=== PATIENT | female | born 1980 | race Hispanic/Latino ===

== ENCOUNTER → 2019-03-19 | Outpatient (CLI) | payer OTHER ==
[~2019-03-19] MED LIST: TYL3 PO; VICODIN PO
== END | disposition home or self-care (01) ==
LOC: OIH 11:00
PROVIDERS: ATTEND Internal Medicine
DX: M06.4 Inflammatory polyarthropathy (principal)
CPT/HCPCS: 72200; 73521

== ENCOUNTER 2019-06-15 08:21 | Inpatient (IN) | payer OTHER ==
[~2019-06-15] VITALS: Ht 160 cm; Wt 80.9 kg
[2019-06-15 09:20] VITALS: BP 112/70
[2019-06-15 09:28] LABS: BASOPHILS % (AUTO) 0.9 % (0.0-5.0); EOSINOPHILS % (AUTO) 6.4 % (0.0-8.0); HEMATOCRIT 36.8 % (36-48); LYMPHOCYTES % (AUTO) 34.3 % (21.0-51.0); MEAN CORPUSCULAR HGB CONC 33.7 g/dL (32.0-36.0); MONOCYTES % (AUTO) 5.4 % (3.0-13.0); NEUTROPHILS % (AUTO) 52.3 % (40.0-77.0); PLATELET COUNT (AUTO) 202 K/uL (130-400); RED BLOOD CELL COUNT(AUTO) 4.28 MIL/uL (4.00-5.50); RED CELL DISTRIBUTION WIDTH 13.3 % (11.0-15.5); WHITE BLOOD COUNT (AUTO) 5.8 K/uL (4.8-10.8)
[2019-06-15 09:45] LABS: INR 0.95 (0.85-1.15); PARTIAL THROMBOPLASTIN TIME 27.3 SEC (26.3-35.5)
--- NOTE | 2019-06-15 09:58 | NUR ---
INITIAL Patient lives with spouse, Ahsan Jeffery, [phone]. No home services. DME: wheelchair, cane. Patient needs help with ADL's independently but drives. Family helps patient as needed. 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 PCP is Dr. Tyrel Castanon. Pharmacy is [facility] is located in [place]. DCP is home. Addendum: 06/15/19 at 1002 by LEELEE CORDERO SS Amended: Links added.
[2019-06-15 10:07] LABS: ALBUMIN 3.3 g/dL (3.5-5.0); BILIRUBIN,TOTAL 0.2 mg/dL (0.2-1.0); CREATININE 1.1 mg/dL (0.5-1.5); TOTAL PROTEIN, SERUM 6.8 g/dL (6.0-8.3)
[2019-06-15] MEDS ORDERED: TYL3B PO (10:07)
[2019-06-15] MEDS ORDERED: CYCL10TA7 PO (10:07)
[2019-06-15] MEDS ORDERED: GABA800T9 PO (10:07)
[2019-06-15] MEDS ORDERED: AMIT50TA3 PO (10:07)
[2019-06-15] MEDS ORDERED: ACETAMINOPHEN-CODEINE 300/30MG TAB PO PRN (10:15)
[2019-06-15] MEDS ORDERED: ACETAMINOPHEN 325 MG TAB PO PRN (10:30)
[2019-06-15 11:00] VITALS: BP 105/67
[2019-06-15] MEDS: CYCLOBENZAPRINE HCL 10 MG TABLET PO SCH ×2 (15:03→21:08)
[2019-06-15] MEDS: GABAPENTIN 100 MG CAPSULE PO SCH ×2 (15:03→21:08)
[2019-06-15] MEDS: GABAPENTIN 300 MG CAPSULE PO SCH ×2 (15:04→21:09)
[2019-06-15 16:00] VITALS: BP 106/70
[2019-06-15 20:25] VITALS: BP 115/70
[2019-06-15] MEDS: FAMOTIDINE 20MG TAB 20 MG TAB PO SCH (21:08)
[2019-06-15] MEDS: AMITRIPTYLINE HCL 25 MG TABLET PO SCH (21:08)
[2019-06-16] VITALS: BP 95/66
[2019-06-16 04:27] VITALS: BP 105/62
[2019-06-16 05:52] LABS: EOSINOPHILS % (AUTO) 6.1 % (0.0-8.0); HEMATOCRIT 38.5 % (36-48); LYMPHOCYTES % (AUTO) 39.8 % (21.0-51.0); MEAN CORPUSCULAR VOLUME 87.9 fL (79-99); MONOCYTES % (AUTO) 5.8 % (3.0-13.0); NEUTROPHILS % (AUTO) 46.5 % (40.0-77.0); PLATELET COUNT (AUTO) 215 K/uL (130-400); RED BLOOD CELL COUNT(AUTO) 4.38 MIL/uL (4.00-5.50); RED CELL DISTRIBUTION WIDTH 13.6 % (11.0-15.5); WHITE BLOOD COUNT (AUTO) 6.3 K/uL (4.8-10.8)
[2019-06-16 06:08] LABS: ALBUMIN 3.2 g/dL (3.5-5.0); BILIRUBIN,TOTAL 0.2 mg/dL (0.2-1.0); CREATININE 1.3 mg/dL (0.5-1.5); POTASSIUM 4.6 mmol/L (3.5-5.1); TOTAL PROTEIN, SERUM 6.7 g/dL (6.0-8.3)
[2019-06-16 07:00] VITALS: BP 108/71
[2019-06-16] MEDS: CYCLOBENZAPRINE HCL 10 MG TABLET PO SCH ×3 (08:56→20:22)
[2019-06-16] MEDS: FAMOTIDINE 20MG TAB 20 MG TAB PO SCH ×2 (08:56→20:18)
[2019-06-16] MEDS: GABAPENTIN 300 MG CAPSULE PO SCH ×3 (08:57→20:22)
[2019-06-16] MEDS: GABAPENTIN 100 MG CAPSULE PO SCH ×3 (08:58→20:22)
--- NOTE | 2019-06-16 09:30 | NUR ---
DR. HENSLEY IN TO SEE PT. FROM HIS STANDPOINT CAN BE DISCHARGED AND TO FOLLOW UP WITH HIM IN 6 TO 8 WEEKS.
--- NOTE | 2019-06-16 10:30 | NUR ---
KIDNEY US DONE, NOW TO SEE PT.
[2019-06-16 12:00] VITALS: BP 116/76
--- NOTE | 2019-06-16 12:30 | NUR ---
DISCHARGE CX. NEW ORDERS IN.
[2019-06-16 16:00] VITALS: BP 127/75
--- NOTE | 2019-06-16 16:00 | NUR ---
AMBULATORY I ROOM AND HAS WALKED TO NURSES STATION A FEW TIMES, STATES JUST TO GET OUT OF ROOM ADMITS TO FEELING WEAK
[2019-06-16 17:35] LABS: APPEARANCE,URINE Clear (CLEAR); BILIRUBIN,URINE Negative (NEGATIVE); COLOR,URINE Yellow (YELLOW); GLUCOSE, URINE (UA) Negative (NEGATIVE); KETONES,URINE Negative (NEGATIVE); LEUKOCYTE ESTERASE ,URINE Trace (NEGATIVE); NITRATE,URINE Negative (NEGATIVE); OCCULT BLOOD,URINE Negative (NEGATIVE); PROTEIN,URINE Negative (NEGATIVE); UROBILINOGEN,URINE 0.2 mg/dL (0.2-1.0)
[2019-06-16 17:42] LABS: BACTERIA,URINE Rare /HPF (None Seen); RBC,URINE 0-1 /HPF (0-1); SQUAMOUS EPITHELIAL CELL,UR 0-2 /HPF (0-2)
[2019-06-16 20:00] VITALS: BP 115/72
[2019-06-16] MEDS: AMITRIPTYLINE HCL 25 MG TABLET PO SCH (20:16)
[2019-06-16] MEDS ORDERED: SODIUM CHLORIDE 0.9% 1000ML 1,000 ML IV SCH (21:15)
[2019-06-17] VITALS: BP 100/78
[2019-06-17 04:00] VITALS: BP 120/66
[2019-06-17 06:12] LABS: HEMATOCRIT 37.2 % (36-48); MEAN CORPUSCULAR HEMOGLOBIN 28.4 pg (27.0-33.0); MEAN CORPUSCULAR HGB CONC 32.3 g/dL (32.0-36.0); MEAN CORPUSCULAR VOLUME 88.2 fL (79-99); PLATELET COUNT (AUTO) 213 K/uL (130-400); RED BLOOD CELL COUNT(AUTO) 4.22 MIL/uL (4.00-5.50); RED CELL DISTRIBUTION WIDTH 13.4 % (11.0-15.5); WHITE BLOOD COUNT (AUTO) 6.4 K/uL (4.8-10.8)
[2019-06-17 06:35] LABS: BILIRUBIN,TOTAL 0.2 mg/dL (0.2-1.0); CREATININE 1.3 mg/dL (0.5-1.5); POTASSIUM 3.9 mmol/L (3.5-5.1); THYROID STIMULATING HORMONE 3.59 uIU/mL (0.36-3.74); TOTAL PROTEIN, SERUM 6.4 g/dL (6.0-8.3); URIC ACID 5.5 mg/dL (2.6-7.2)
[2019-06-17 08:00] VITALS: BP 126/84
--- NOTE | 2019-06-17 08:00 | NUR ---
AM SHIFT ASSESSMENT, NO C/O, STATES FEELING SAME YESTERDAY.
[2019-06-17 09:15] LABS: BASOPHILS % (MANUAL) 1 % (0-2); EOSINOPHILS % (MANUAL) 3 % (1-6); LYMPHOCYTES % (MANUAL) 41 % (22-44); MAN.DIFF COMMENT-IMPRESSION MANUAL DIFFERENTIAL; MONOCYTES % (MANUAL) 3 % (2-9); PLATELET MORPHOLOGY COMMENT ADEQUATE; REACTIVE LYMPHOCYTES 1 % (0-0); SEGMENTED NEUTROPHILS % 51 % (40-70)
[2019-06-17] MEDS: GABAPENTIN 100 MG CAPSULE PO SCH ×2 (10:16→14:03)
[2019-06-17] MEDS: GABAPENTIN 300 MG CAPSULE PO SCH ×2 (10:17→14:04)
[2019-06-17] MEDS: CYCLOBENZAPRINE HCL 10 MG TABLET PO SCH ×2 (10:17→14:04)
[2019-06-17] MEDS: FAMOTIDINE 20MG TAB 20 MG TAB PO SCH (10:17)
[2019-06-17 11:00] VITALS: BP 148/84
--- NOTE | 2019-06-17 14:00 | NUR ---
CONTINUES TO C/O OF FEELING DIZZY AND GENERALIZED BODY WEAKNESS.
--- NOTE | 2019-06-17 17:25 | NUR ---
DISCHARGE PATIENT GIVEN DISCHARGE INSTRUCTIONS VIA TEACH BACK. 22G PIV TO LFA DISCONTINUED, NO REDNESS OR SWELLING NOTED TO SITE. NO RX GIVEN. PATIENT TO FOLLOW UP WITH DR. LOZANO, DR. QUINTEROS AND DR. HENSLEY. PATIENT STABLE AT THIS TIME. PATIENT WHEELED TO LOBBY BY ANASTASIA CARDENAS.
[2019-06-18 08:14] LABS: HEPATITIS Bs ANTIGEN SCREEN P Negative (Negative)
[2019-06-18 14:10] LABS: MYELIN BASIC PROTEIN-CSF 3.7 ng/mL (0.0-3.7)
== END 2019-06-17 17:30 | disposition home or self-care (01) | DRG 59 ==
LOC: EDH 08:21 → EDHIP 08:33 → 3CH 08:45
PROVIDERS: ADMIT Internal Medicine; ATTEND Internal Medicine
PROC: 009U3ZX Drainage of Spinal Canal, Percutaneous Approach, Diagnostic (ICD-10-PCS; principal; 2019-06-15)
DX: G35 Multiple sclerosis (principal); N17.9 Acute kidney failure, unspecified; Q60.3 Renal hypoplasia, unilateral; M79.7 Fibromyalgia; N18.9 Chronic kidney disease, unspecified; K76.89 Other specified diseases of liver; Z88.8 Allergy status to other drugs, medicaments and biological substances; Z82.49 Family history of ischemic heart disease and other diseases of the circulatory system; Z90.711 Acquired absence of uterus with remaining cervical stump
CPT/HCPCS: 36415; 62272; 70450; 74176; 76705; 76775; 80053; 81001; 83873; 84155; 84443; 84550; 85025; 85610; 85730; 86038; 86160; 87340; 87520; G0378

== ENCOUNTER 2021-07-16 12:37 | Emergency (ER) | payer BC, OTHER ==
[~2021-07-16] VITALS: Ht 160 cm; Wt 77.1 kg
[~2021-07-16 12:37] MED LIST changes: +AMIT50TA3 PO; +CYCL-309 PO; +GABA800T9 PO; -TYL3 PO; +TYL3B PO; -VICODIN PO
[2021-07-16] MEDS ORDERED: 0.9%NACL 1000ML 1,000 ML IV ONE ×2 (13:00→14:22)
[2021-07-16] MEDS ORDERED: MAG/ALUM/SIMETH 30 ML UDCUP PO ONE (13:30)
[2021-07-16] MEDS ORDERED: ONDANSETRON 4MG INJ IVP ONE (13:30)
[2021-07-16] MEDS ORDERED: MORPHINE 4 MG SYG IVP ONE (13:30)
[2021-07-16] MEDS ORDERED: FAMOTIDINE 20MG VIAL IV ONE (13:30)
[2021-07-16 13:37] LABS: BASOPHILS % (AUTO) 0.3 % (0.0-5.0); EOSINOPHILS % (AUTO) 0.2 % (0.0-8.0); HEMATOCRIT 45.6 % (36-48); LYMPHOCYTES % (AUTO) 9.4 % (21.0-51.0); MEAN CORPUSCULAR HEMOGLOBIN 28.1 pg (27.0-33.0); MEAN CORPUSCULAR HGB CONC 32.7 g/dL (32.0-36.0); MEAN CORPUSCULAR VOLUME 85.9 fL (79-99); MONOCYTES % (AUTO) 3.3 % (3.0-13.0); NEUTROPHILS % (AUTO) 85.8 % (40.0-77.0); PLATELET COUNT (AUTO) 334 K/uL (130-400); RED BLOOD CELL COUNT(AUTO) 5.31 MIL/uL (4.00-5.50); RED CELL DISTRIBUTION WIDTH 13.5 % (11.0-15.5); WHITE BLOOD COUNT (AUTO) 11.9 K/uL (4.8-10.8)
[2021-07-16 13:49] LABS: CREATININE 4.7 mg/dL (0.5-1.5); POTASSIUM 4.3 mmol/L (3.5-5.1)
[2021-07-16 13:51] LABS: APPEARANCE,URINE Clear (CLEAR); BILIRUBIN,URINE Negative (NEGATIVE); COLOR,URINE Yellow (YELLOW); GLUCOSE, URINE (UA) Negative (NEGATIVE); KETONES,URINE Trace mg/dL (NEGATIVE); LEUKOCYTE ESTERASE ,URINE Trace (NEGATIVE); NITRATE,URINE Negative (NEGATIVE); OCCULT BLOOD,URINE Negative (NEGATIVE); PROTEIN,URINE Trace mg/dL (NEGATIVE)
[2021-07-16 14:02] LABS: ALBUMIN 4.2 g/dL (3.5-5.0); BILIRUBIN,TOTAL 0.5 mg/dL (0.2-1.0); TOTAL PROTEIN, SERUM 8.8 g/dL (6.0-8.3)
[2021-07-16 14:08] LABS: BACTERIA,URINE Rare /HPF (None Seen); RBC,URINE 0-1 /HPF (0-1); SQUAMOUS EPITHELIAL CELL,UR Rare /HPF (0-2); WBC,URINE 0-1 /HPF (0-1)
[2021-07-16] MEDS ORDERED: LIDOCAINE HCL 2% VISCOUS 15 ML UDCUP ONE (14:16)
[2021-07-16] MEDS ORDERED: IOHEXOL-350 75 ML VIAL IV ONE (15:17)
[2021-07-16] MEDS ORDERED: DiphenhydrAMINE HCL 50 MG/ML VIAL IV ONE (17:00)
[2021-07-16] MEDS ORDERED: METOCLOPRAMIDE 10 MG/2 ML VIAL IVP ONE (17:00)
[2021-07-16] MEDS ORDERED: FAMO-136 PO (17:44)
[2021-07-16] MEDS ORDERED: TRAM50TA2 PO (17:44)
[2021-07-16] MEDS ORDERED: ONDA4TAB10 PO (17:44)
[2021-07-16] MEDS ORDERED: OMEP20TA20 PO (17:44)
[2021-07-16 18:24] VITALS: BP 123/78
== END 2021-07-16 18:25 | disposition home or self-care (01) ==
LOC: EDH 12:37
DX: K76.89 Other specified diseases of liver (principal); R18.8 Other ascites; R11.2 Nausea with vomiting, unspecified; M79.7 Fibromyalgia; G62.9 Polyneuropathy, unspecified; Z98.890 Other specified postprocedural states; Z79.899 Other long term (current) drug therapy
CPT/HCPCS: 36415; 74177; 80053; 81001; 83690; 84484; 84702; 85025; 93005; 96361; 96374; 96375; 99284; J1200; J2270; J2405; J2765; J3490; J7030; Q9967

== ENCOUNTER 2021-07-19 13:34 | Observation (INO) | payer BC ==
[~2021-07-19] VITALS: Ht 160 cm; Wt 79.8 kg
[~2021-07-19 13:34] MED LIST changes: +FAMO-136 PO; +OMEP20TA20 PO; +ONDA4TAB10 PO; +TRAM50TA2 PO
[2021-07-19] MEDS ORDERED: ONDANSETRON 4MG INJ IVP ONE (14:00)
[2021-07-19 14:37] LABS: BASOPHILS % (AUTO) 0.4 % (0.0-5.0); EOSINOPHILS % (AUTO) 0.4 % (0.0-8.0); HEMATOCRIT 42.4 % (36-48); LYMPHOCYTES % (AUTO) 12.4 % (21.0-51.0); MEAN CORPUSCULAR HEMOGLOBIN 28.8 pg (27.0-33.0); MEAN CORPUSCULAR HGB CONC 34.7 g/dL (32.0-36.0); MEAN CORPUSCULAR VOLUME 83.1 fL (79-99); MONOCYTES % (AUTO) 4.2 % (3.0-13.0); NEUTROPHILS % (AUTO) 81.5 % (40.0-77.0); PLATELET COUNT (AUTO) 376 K/uL (130-400); RED CELL DISTRIBUTION WIDTH 13.3 % (11.0-15.5); WHITE BLOOD COUNT (AUTO) 11.8 K/uL (4.8-10.8)
[2021-07-19] MEDS ORDERED: LIDOCAINE HCL MPF 1% 5ML VIAL ONE (14:45)
[2021-07-19 14:50] LABS: INR 1.12 (0.85-1.15); PROTHROMBIN TIME 12.1 SEC (9.6-11.6)
[2021-07-19 14:51] LABS: PARTIAL THROMBOPLASTIN TIME 34.6 SEC (26.3-35.5)
[2021-07-19 14:53] LABS: ALBUMIN 3.8 g/dL (3.5-5.0); BILIRUBIN,TOTAL 0.5 mg/dL (0.2-1.0); POTASSIUM 4.7 mmol/L (3.5-5.1); TOTAL PROTEIN, SERUM 8.6 g/dL (6.0-8.3)
[2021-07-19 14:55] LABS: CREATININE 8.1 mg/dL (0.5-1.5)
[2021-07-19] MEDS ORDERED: 0.9%NACL 1000ML 1,000 ML IV ONE (15:30)
[2021-07-19] MEDS ORDERED: ALBUMIN (HUMAN) 25% 200 ML IV ONE (16:30)
[2021-07-19] MEDS ORDERED: METOCLOPRAMIDE 10 MG/2 ML VIAL IVP ONE (17:00)
[2021-07-19] MEDS ORDERED: DiphenhydrAMINE HCL 50 MG/ML VIAL IV ONE (17:00)
[2021-07-20] MEDS ORDERED: DOCUSATE SODIUM 100 MG CAP PO PRN (01:30)
[2021-07-20] MEDS ORDERED: ACETAMINOPHEN 325 MG TAB PO PRN (01:30)
[2021-07-20] MEDS ORDERED: LABETALOL 20MG SYG IV PRN (01:30)
[2021-07-20] MEDS ORDERED: ACETAMINOPHEN 650 MG SUPPOSITORY RC PRN (01:30)
[2021-07-20 01:35] VITALS: BP 138/83
[2021-07-20] MEDS ORDERED: THYR90TA12 PO ×2 (02:13)
[2021-07-20] MEDS ORDERED: TIZA6CAP9 PO (02:13)
[2021-07-20 03:17] VITALS: BP 138/77
[2021-07-20 08:00] VITALS: BP 117/72
[2021-07-20] MEDS ORDERED: DEXTROSE 50%-WATER 50 ML DISP.SYRIN IV PRN (09:00)
[2021-07-20] MEDS ORDERED: GLUCAGON 1MG KIT 1 MG ML IM PRN (09:00)
[2021-07-20] MEDS: 0.9%NACL 1000ML 1,000 ML IV SCH ×2 (09:26→22:08)
[2021-07-20] MEDS: ENOXAPARIN SODIUM 40 MG/0.4 ML SYRINGE SQ SCH (09:28)
[2021-07-20] MEDS: INSULIN HUMULIN R 100 UNIT/ML 3ML SQ SCH ×2 (11:30→20:32)
[2021-07-20 12:00] VITALS: BP 115/80
[2021-07-20] MEDS ORDERED: FENTANYL CITRATE PF 50 MCG/1 ML 2ML VIAL IVP PRN (14:30)
[2021-07-20 16:00] VITALS: BP 126/93
[2021-07-20 19:00] VITALS: BP 122/84
[2021-07-20] MEDS: KETOROLAC 15MG/ML VIAL (15MG/ML) IV PRN (20:39)
[2021-07-21] VITALS: BP 112/72
[2021-07-21 04:00] VITALS: BP 103/48
[2021-07-21 04:47] LABS: BASOPHILS % (AUTO) 0.8 % (0.0-5.0); EOSINOPHILS % (AUTO) 4.9 % (0.0-8.0); HEMATOCRIT 36.9 % (36-48); MEAN CORPUSCULAR HEMOGLOBIN 27.7 pg (27.0-33.0); MEAN CORPUSCULAR HGB CONC 32.5 g/dL (32.0-36.0); MEAN CORPUSCULAR VOLUME 85.2 fL (79-99); MONOCYTES % (AUTO) 5.6 % (3.0-13.0); NEUTROPHILS % (AUTO) 64.8 % (40.0-77.0); PLATELET COUNT (AUTO) 322 K/uL (130-400); RED BLOOD CELL COUNT(AUTO) 4.33 MIL/uL (4.00-5.50); RED CELL DISTRIBUTION WIDTH 13.5 % (11.0-15.5); WHITE BLOOD COUNT (AUTO) 7.9 K/uL (4.8-10.8)
[2021-07-21 05:00] LABS: INR 1.05 (0.85-1.15); PROTHROMBIN TIME 11.4 SEC (9.6-11.6)
[2021-07-21 05:18] LABS: ALBUMIN 3.6 g/dL (3.5-5.0); BILIRUBIN,TOTAL 0.3 mg/dL (0.2-1.0); PHOSPHORUS 6.6 mg/dL (2.5-4.9); POTASSIUM 4.5 mmol/L (3.5-5.1)
[2021-07-21] MEDS: INSULIN HUMULIN R 100 UNIT/ML 3ML SQ SCH ×2 (05:40→21:00)
[2021-07-21 08:00] VITALS: BP 119/78
[2021-07-21] MEDS: ENOXAPARIN SODIUM 40 MG/0.4 ML SYRINGE SQ SCH (10:37)
[2021-07-21] MEDS: KETOROLAC 15MG/ML VIAL (15MG/ML) IV PRN (10:39)
[2021-07-21 12:00] VITALS: BP 116/69
[2021-07-21 16:00] VITALS: BP 107/64
[2021-07-21] MEDS: 0.9%NACL 1000ML 1,000 ML IV SCH (17:30)
[2021-07-21] MEDS ORDERED: ONDANSETRON 4MG INJ IVP PRN (19:00)
[2021-07-21 20:00] VITALS: BP 122/64
[2021-07-21] MEDS: CALCIUM CARB 500MG CHEW TAB PO SCH (21:32)
[2021-07-22] VITALS: BP 121/75
[2021-07-22 04:00] VITALS: BP 121/73
[2021-07-22 04:22] LABS: BF EOSINOPHIL 6 %; BF LYMPHOCYTE 27 %; BF MESOTHELIAL 38 %; BF MONOCYTE 13 %
[2021-07-22 04:24] LABS: ALBUMIN,BODY FLUID 0.2 g/dL
[2021-07-22 04:25] LABS: APPEARANCE BODY FLUID CLEAR (CLEAR); COLOR,BODY FLUID YELLOW (LT YELLOW); SPECIMENTYPE,BODY FLUID ASCITES; TOTAL VOLUME,BODY FLUID 7500 mL
[2021-07-22 04:26] LABS: BODY FLUID RBC 0 /cu. mm.; BODY FLUID WBC 15 /cu. mm.
[2021-07-22 05:39] LABS: BASOPHILS % (AUTO) 0.5 % (0.0-5.0); HEMATOCRIT 36.1 % (36-48); LYMPHOCYTES % (AUTO) 16.1 % (21.0-51.0); MEAN CORPUSCULAR HEMOGLOBIN 28.2 pg (27.0-33.0); MEAN CORPUSCULAR HGB CONC 33.2 g/dL (32.0-36.0); MEAN CORPUSCULAR VOLUME 84.7 fL (79-99); MONOCYTES % (AUTO) 4.7 % (3.0-13.0); NEUTROPHILS % (AUTO) 72.8 % (40.0-77.0); PLATELET COUNT (AUTO) 332 K/uL (130-400); RED BLOOD CELL COUNT(AUTO) 4.26 MIL/uL (4.00-5.50); RED CELL DISTRIBUTION WIDTH 13.8 % (11.0-15.5); WHITE BLOOD COUNT (AUTO) 8.8 K/uL (4.8-10.8)
[2021-07-22 05:53] LABS: INR 0.98 (0.85-1.15); PROTHROMBIN TIME 10.7 SEC (9.6-11.6)
[2021-07-22 06:00] LABS: ALBUMIN 3.3 g/dL (3.5-5.0); CREATININE 6.2 mg/dL (0.5-1.5); PHOSPHORUS 6.2 mg/dL (2.5-4.9)
[2021-07-22 06:11] LABS: BILIRUBIN,TOTAL 0.3 mg/dL (0.2-1.0); MAGNESIUM 2.9 mg/dL (1.80-2.40); THYROID STIMULATING HORMONE 4.62 uIU/mL (0.36-3.74); TOTAL PROTEIN, SERUM 6.8 g/dL (6.0-8.3)
[2021-07-22] MEDS: INSULIN HUMULIN R 100 UNIT/ML 3ML SQ SCH ×2 (06:25→11:30)
[2021-07-22 08:00] VITALS: BP 116/76
[2021-07-22] MEDS: CALCIUM CARB 500MG CHEW TAB PO SCH (09:11)
[2021-07-22] MEDS: ENOXAPARIN SODIUM 40 MG/0.4 ML SYRINGE SQ SCH (09:12)
[2021-07-22] MEDS ORDERED: AMITRIPTYLINE 25 MG TABLET PO SCH (10:07)
[2021-07-22] MEDS ORDERED: PANTOPRAZOLE 40 MG TAB DR PO SCH (10:11)
[2021-07-22 11:56] VITALS: BP 119/56
[2021-07-22] MEDS ORDERED: CYCLOBENZAPRINE HCL 10 MG TABLET PO SCH (14:00)
[2021-07-22] MEDS ORDERED: ONDANSETRON ODT 4MG TAB PO SCH (14:00)
[2021-07-23] MEDS ORDERED: FAMOTIDINE 20MG TAB PO SCH (09:00)
[2021-07-23 19:38] LABS: HEPATITIS A IGM ANTIBODY Non-Reactive (Negative); HEPATITIS B CORE IGM ANTIBODY Non-Reactive (Negative); HEPATITIS B SURFACE ANTIGEN Non-Reactive (Negative); HEPATITIS C ANTIBODY Non-Reactive (NEGATIVE)
== END 2021-07-22 12:25 | disposition home or self-care (01) ==
LOC: EDH 13:34 → EDHIP 19:54 → 3BH 07-20 00:17
PROVIDERS: ADMIT Internal Medicine Critical Care Medicine; ATTEND Internal Medicine Critical Care Medicine
DX: R18.8 Other ascites (principal); N17.9 Acute kidney failure, unspecified; N18.9 Chronic kidney disease, unspecified; E87.1 Hypo-osmolality and hyponatremia; E86.0 Dehydration; D72.829 Elevated white blood cell count, unspecified; R73.9 Hyperglycemia, unspecified; B27.00 Gammaherpesviral mononucleosis without complication; E03.9 Hypothyroidism, unspecified; K76.89 Other specified diseases of liver; M79.7 Fibromyalgia; Z79.899 Other long term (current) drug therapy; Z90.711 Acquired absence of uterus with remaining cervical stump; Z98.891 History of uterine scar from previous surgery
CPT/HCPCS: 36415 ×3; 49083; 71045; 74176; 80053 ×3; 80074; 82042; 82948 ×7; 83605; 83615; 83735 ×2; 84100 ×2; 84145; 84157; 84439; 84443; 84481; 85025 ×3; 85610 ×3; 85730; 86038; 86255 ×3; 86316; 86606 ×4; 86612; 86635; 86682; 86698; 86701; 87071; 87076; 87205; 87390; 89051; 96361 ×3; 96372 ×3; 96374; 96375 ×2; 96376; 99285; C1729; G0378 ×64; J1200; J1650 ×3; J1885 ×2; J2405 ×2; J2765; J3010; J3490; J7030 ×2; P9046; 96365

== ENCOUNTER 2021-08-07 15:41 | Emergency (ER) | payer BC ==
[~2021-08-07] VITALS: Ht 160 cm; Wt 74.4 kg
[~2021-08-07 15:41] MED LIST changes: -GABA800T9 PO; +TIZA6CAP9 PO; -TRAM50TA2 PO; -TYL3B PO
[2021-08-07 15:47] VITALS: BP 131/88
[2021-08-07] MEDS ORDERED: ONDANSETRON 4MG INJ IVP ONE (16:00)
[2021-08-07] MEDS ORDERED: MORPHINE 2 MG SYG IVP ONE (16:00)
[2021-08-07 16:51] LABS: BASOPHILS % (AUTO) 0.6 % (0.0-5.0); EOSINOPHILS % (AUTO) 2.6 % (0.0-8.0); LYMPHOCYTES % (AUTO) 19.6 % (21.0-51.0); MEAN CORPUSCULAR HEMOGLOBIN 28.2 pg (27.0-33.0); MEAN CORPUSCULAR HGB CONC 32.7 g/dL (32.0-36.0); MEAN CORPUSCULAR VOLUME 86.2 fL (79-99); MONOCYTES % (AUTO) 4.6 % (3.0-13.0); NEUTROPHILS % (AUTO) 72.2 % (40.0-77.0); PLATELET COUNT (AUTO) 212 K/uL (130-400); RED BLOOD CELL COUNT(AUTO) 4.29 MIL/uL (4.00-5.50); WHITE BLOOD COUNT (AUTO) 7.2 K/uL (4.8-10.8)
[2021-08-07 16:55] LABS: CREATININE 1.1 mg/dL (0.5-1.5); POTASSIUM 3.4 mmol/L (3.5-5.1)
[2021-08-07 17:11] LABS: ALBUMIN 3.8 g/dL (3.5-5.0); BILIRUBIN,TOTAL 0.4 mg/dL (0.2-1.0); TOTAL PROTEIN, SERUM 7.6 g/dL (6.0-8.3)
[2021-08-07] MEDS ORDERED: POTASSIUM BICARB/CIT AC 25 MEQ TABLET.EFF PO ONE (17:30)
[2021-08-07 18:31] LABS: APPEARANCE,URINE Clear (CLEAR); BILIRUBIN,URINE Negative (NEGATIVE); COLOR,URINE Yellow (YELLOW); GLUCOSE, URINE (UA) Negative (NEGATIVE); KETONES,URINE Negative (NEGATIVE); LEUKOCYTE ESTERASE ,URINE Negative (NEGATIVE); NITRATE,URINE Negative (NEGATIVE); OCCULT BLOOD,URINE Negative (NEGATIVE); PH,URINE 6.5 (5.0-8.0); PROTEIN,URINE Negative (NEGATIVE); UROBILINOGEN,URINE 0.2 mg/dL (0.2-1.0)
== END 2021-08-07 17:49 | disposition home or self-care (01) ==
LOC: EDH 15:41
DX: Q44.6 Cystic disease of liver (principal); Q60.3 Renal hypoplasia, unilateral; K80.20 Calculus of gallbladder without cholecystitis without obstruction; N83.202 Unspecified ovarian cyst, left side; Z79.899 Other long term (current) drug therapy; M79.7 Fibromyalgia; Z98.890 Other specified postprocedural states
CPT/HCPCS: 36415; 74176; 80053; 81003; 83690; 84484; 85025; 96374; 96375; 99284; J2405

== ENCOUNTER 2021-09-02 07:29 | Emergency (ER) | payer BC ==
[~2021-09-02] VITALS: Ht 160 cm; Wt 74.8 kg
[2021-09-02 08:10] LABS: BASOPHILS % (AUTO) 0.7 % (0.0-5.0); EOSINOPHILS % (AUTO) 3.8 % (0.0-8.0); HEMATOCRIT 35.3 % (36-48); LYMPHOCYTES % (AUTO) 23.9 % (21.0-51.0); MEAN CORPUSCULAR HEMOGLOBIN 28.3 pg (27.0-33.0); MEAN CORPUSCULAR HGB CONC 33.1 g/dL (32.0-36.0); MEAN CORPUSCULAR VOLUME 85.5 fL (79-99); MONOCYTES % (AUTO) 5.5 % (3.0-13.0); NEUTROPHILS % (AUTO) 65.8 % (40.0-77.0); PLATELET COUNT (AUTO) 185 K/uL (130-400); RED BLOOD CELL COUNT(AUTO) 4.13 MIL/uL (4.00-5.50); RED CELL DISTRIBUTION WIDTH 12.5 % (11.0-15.5)
[2021-09-02 08:43] LABS: ALBUMIN 3.5 g/dL (3.5-5.0); BILIRUBIN,TOTAL 0.2 mg/dL (0.2-1.0); CREATININE 1.3 mg/dL (0.5-1.5); POTASSIUM 3.6 mmol/L (3.5-5.1); TOTAL PROTEIN, SERUM 6.9 g/dL (6.0-8.3)
[2021-09-02] MEDS ORDERED: MORPHINE 4 MG SYG IVP ONE (09:30)
[2021-09-02] MEDS ORDERED: ONDANSETRON 4MG INJ IVP ONE (09:30)
[2021-09-02] MEDS ORDERED: DIAZEPAM 5 MG/ML 2 ML SYG IVP ONE (10:00)
[2021-09-02 10:35] VITALS: BP 129/56
[2021-09-02 10:57] LABS: APPEARANCE,URINE Clear (CLEAR); BILIRUBIN,URINE Negative (NEGATIVE); COLOR,URINE Yellow (YELLOW); GLUCOSE, URINE (UA) Negative (NEGATIVE); KETONES,URINE Negative (NEGATIVE); LEUKOCYTE ESTERASE ,URINE Negative (NEGATIVE); NITRATE,URINE Negative (NEGATIVE); OCCULT BLOOD,URINE Negative (NEGATIVE); PROTEIN,URINE Trace mg/dL (NEGATIVE); UROBILINOGEN,URINE 0.2 mg/dL (0.2-1.0)
[2021-09-02 11:27] LABS: HCG,QUAL RESULT NEGATIVE (NEGATIVE)
[2021-09-02 11:30] LABS: BACTERIA,URINE Rare /HPF (None Seen); RBC,URINE 0-1 /HPF (0-1); SQUAMOUS EPITHELIAL CELL,UR Rare /HPF (0-2); WBC,URINE 0-1 /HPF (0-1)
[2021-09-02] MEDS ORDERED: DIAZ5TAB PO (11:31)
== END 2021-09-02 11:39 | disposition home or self-care (01) ==
LOC: EDH 07:29
DX: N83.201 Unspecified ovarian cyst, right side (principal); K21.9 Gastro-esophageal reflux disease without esophagitis; N18.9 Chronic kidney disease, unspecified; M79.7 Fibromyalgia; Z79.899 Other long term (current) drug therapy; Z90.710 Acquired absence of both cervix and uterus
CPT/HCPCS: 36415; 76856; 80053; 81001; 81025; 83690; 85025; 96374; 96375; 99284; J2270; J2405; J3360

== ENCOUNTER 2021-10-27 16:25 | Inpatient (IN) | payer BC ==
[~2021-10-27] VITALS: Ht 160 cm; Wt 70.6 kg
[~2021-10-27 16:25] MED LIST changes: +DIAZ5TAB PO
[2021-10-27 17:21] LABS: BASOPHILS % (AUTO) 0.2 % (0.0-5.0); EOSINOPHILS % (AUTO) 0.1 % (0.0-8.0); HEMATOCRIT 34.9 % (36-48); LYMPHOCYTES % (AUTO) 9.2 % (21.0-51.0); MEAN CORPUSCULAR HEMOGLOBIN 28.7 pg (27.0-33.0); MEAN CORPUSCULAR HGB CONC 34.1 g/dL (32.0-36.0); MEAN CORPUSCULAR VOLUME 84.1 fL (79-99); MONOCYTES % (AUTO) 3.3 % (3.0-13.0); NEUTROPHILS % (AUTO) 86.7 % (40.0-77.0); PLATELET COUNT (AUTO) 229 K/uL (130-400); RED BLOOD CELL COUNT(AUTO) 4.15 MIL/uL (4.00-5.50); RED CELL DISTRIBUTION WIDTH 13.4 % (11.0-15.5); WHITE BLOOD COUNT (AUTO) 10.9 K/uL (4.8-10.8)
[2021-10-27] MEDS ORDERED: MORPHINE 4 MG SYG IVP ONE (17:30)
[2021-10-27] MEDS ORDERED: KETOROLAC 15MG/ML VIAL (15MG/ML) IV ONE (17:30)
[2021-10-27] MEDS ORDERED: ONDANSETRON 4MG INJ IVP ONE (17:30)
[2021-10-27 17:45] LABS: CARBON DIOXIDE 26 mmol/L (21-32); CHLORIDE 102 mmol/L (101-111); CREATININE 1.5 mg/dL (0.5-1.5); GLOMERULAR FILTR. RATE CALC 40 mL/min (>60); GLUCOSE,RANDOM 107 mg/dL (70-105); POTASSIUM 4.2 mmol/L (3.5-5.1); SODIUM SERUM 137 mmol/L (136-145); UREA NITROGEN, BLOOD 15 mg/dL (7-18)
[2021-10-27 17:50] LABS: ALANINE AMINOTRANSFERASE 19 U/L (12-78); ALBUMIN 3.8 g/dL (3.5-5.0); AMYLASE 86 U/L (25-115); ASPARTATE AMINOTRANSFERASE 18 U/L (10-37); CREATINE KINASE, TOTAL 35 U/L (21-232); LIPASE 224 U/L (114-286); TOTAL PROTEIN, SERUM 7.4 g/dL (6.0-8.3)
[2021-10-27] MEDS ORDERED: LACTULOSE 20 GM/30 ML UDCUP PO PRN (19:00)
[2021-10-27] MEDS ORDERED: ACETAMINOPHEN 650 MG SUPPOSITORY RC PRN (19:00)
[2021-10-27] MEDS ORDERED: HYDRALAZINE 20MG/ML VIAL IV PRN (19:00)
[2021-10-27] MEDS ORDERED: IOHEXOL 350 MG/ML 100ML INFUS..BTL IV ONE (19:00)
[2021-10-27] MEDS ORDERED: LABETALOL 20MG SYG IV PRN (19:00)
[2021-10-27] MEDS ORDERED: DOCUSATE SODIUM 100 MG CAP PO PRN (19:00)
[2021-10-27] MEDS ORDERED: CLONIDINE HCL 0.1 MG TABLET PO PRN (19:00)
[2021-10-27] MEDS: 0.9%NACL 1000ML 1,000 ML IV SCH (20:11)
[2021-10-27] MEDS: PANTOPRAZOLE 40 MG TAB DR PO SCH ×2 (20:11→20:52)
[2021-10-27] MEDS: ZOSYN 3.375GM +NS 50ML IV SCH (20:11)
[2021-10-27] MEDS: HYDROMORPHONE 1 MG INJ IVP PRN (20:12)
[2021-10-27 21:20] VITALS: BP 119/79
[2021-10-27] MEDS ORDERED: VIBE75TA PO (22:55)
[2021-10-27] MEDS ORDERED: THYR90TA12 PO (23:00)
[2021-10-27] MEDS ORDERED: HYDR-4068 PO (23:00)
[2021-10-27] MEDS ORDERED: BELLADONNA PR (23:00)
[2021-10-27] MEDS ORDERED: OPIUM PR (23:00)
[2021-10-27] MEDS ORDERED: VITAD50000 PO (23:00)
[2021-10-27] MEDS ORDERED: FOLI0.8T2 PO (23:00)
[2021-10-28] VITALS (7 sets, daily range): BP systolic 104–117; BP diastolic 56–81
[2021-10-28] MEDS: ZOSYN 3.375GM +NS 50ML IV SCH ×3 (02:48→17:10)
[2021-10-28] MEDS: HYDROMORPHONE 1 MG INJ IVP PRN ×5 (02:53→23:06)
[2021-10-28] MEDS: 0.9%NACL 1000ML 1,000 ML IV SCH ×3 (04:33→23:10)
[2021-10-28 05:25] LABS: BASOPHILS % (AUTO) 0.4 % (0.0-5.0); EOSINOPHILS % (AUTO) 1.8 % (0.0-8.0); HEMATOCRIT 30.4 % (36-48); LYMPHOCYTES % (AUTO) 28.9 % (21.0-51.0); MEAN CORPUSCULAR HEMOGLOBIN 28.9 pg (27.0-33.0); MEAN CORPUSCULAR HGB CONC 33.9 g/dL (32.0-36.0); MEAN CORPUSCULAR VOLUME 85.2 fL (79-99); MONOCYTES % (AUTO) 5.3 % (3.0-13.0); NEUTROPHILS % (AUTO) 63.2 % (40.0-77.0); PLATELET COUNT (AUTO) 194 K/uL (130-400); RED BLOOD CELL COUNT(AUTO) 3.57 MIL/uL (4.00-5.50); RED CELL DISTRIBUTION WIDTH 13.6 % (11.0-15.5); WHITE BLOOD COUNT (AUTO) 7.3 K/uL (4.8-10.8)
[2021-10-28 06:07] LABS: PHOSPHORUS 4.8 mg/dL (2.5-4.9)
[2021-10-28 06:32] LABS: APPEARANCE,URINE CLEAR (CLEAR); BILIRUBIN,URINE NEGATIVE (NEGATIVE); COLOR,URINE YELLOW (YELLOW); GLUCOSE, URINE (UA) NEGATIVE (NEGATIVE); KETONES,URINE NEGATIVE (NEGATIVE); LEUKOCYTE ESTERASE ,URINE NEGATIVE (NEGATIVE); NITRATE,URINE NEGATIVE (NEGATIVE); OCCULT BLOOD,URINE NEGATIVE (NEGATIVE); PROTEIN,URINE NEGATIVE (NEGATIVE); UROBILINOGEN,URINE 0.2 mg/dL (0.2-1.0)
[2021-10-28] MEDS: PANTOPRAZOLE 40 MG TAB DR PO SCH ×2 (08:15→20:21)
[2021-10-28] MEDS: ONDANSETRON 4MG INJ IVP PRN ×2 (11:53→18:20)
[2021-10-28] MEDS: ENOXAPARIN SODIUM 40 MG/0.4 ML SYRINGE SQ SCH (12:50)
[2021-10-29] MEDS: ZOSYN 3.375GM +NS 50ML IV SCH ×3 (02:56→18:38)
[2021-10-29] MEDS: HYDROMORPHONE 1 MG INJ IVP PRN ×4 (02:56→20:24)
[2021-10-29 04:00] VITALS: BP 124/81
[2021-10-29 07:05] VITALS: BP 118/70
[2021-10-29] MEDS: ONDANSETRON 4MG INJ IVP PRN ×3 (08:45→18:38)
[2021-10-29] MEDS: PANTOPRAZOLE 40 MG TAB DR PO SCH ×2 (08:46→20:17)
[2021-10-29] MEDS: ENOXAPARIN SODIUM 40 MG/0.4 ML SYRINGE SQ SCH (09:00)
[2021-10-29] MEDS: 0.9%NACL 1000ML 1,000 ML IV SCH ×2 (10:58→20:23)
[2021-10-29 11:05] VITALS: BP 119/62
[2021-10-29 15:00] VITALS: BP 132/75
[2021-10-29] MEDS: KETOROLAC 15MG/ML VIAL (15MG/ML) IV PRN (17:58)
[2021-10-29] MEDS ORDERED: ONDANSETRON 4MG INJ IVP ONE (18:30)
[2021-10-29 20:43] VITALS: BP 134/76
[2021-10-29 23:38] VITALS: BP 125/59
[2021-10-30] VITALS (23 sets, daily range): BP systolic 119–137; BP diastolic 63–83
[2021-10-30] MEDS: ZOSYN 3.375GM +NS 50ML IV SCH ×3 (03:42→17:02)
[2021-10-30 05:00] LABS: BASOPHILS % (AUTO) 0.7 % (0.0-5.0); EOSINOPHILS % (AUTO) 4.7 % (0.0-8.0); HEMATOCRIT 29.1 % (36-48); LYMPHOCYTES % (AUTO) 24.2 % (21.0-51.0); MEAN CORPUSCULAR HEMOGLOBIN 28.5 pg (27.0-33.0); MEAN CORPUSCULAR HGB CONC 33.7 g/dL (32.0-36.0); MEAN CORPUSCULAR VOLUME 84.6 fL (79-99); MONOCYTES % (AUTO) 6.5 % (3.0-13.0); NEUTROPHILS % (AUTO) 63.7 % (40.0-77.0); PLATELET COUNT (AUTO) 155 K/uL (130-400); RED BLOOD CELL COUNT(AUTO) 3.44 MIL/uL (4.00-5.50); RED CELL DISTRIBUTION WIDTH 13.2 % (11.0-15.5); WHITE BLOOD COUNT (AUTO) 4.5 K/uL (4.8-10.8)
[2021-10-30 05:09] LABS: ALBUMIN 2.8 g/dL (3.5-5.0); CREATININE 1.3 mg/dL (0.5-1.5); MAGNESIUM 1.8 mg/dL (1.80-2.40); POTASSIUM 3.6 mmol/L (3.5-5.1); TOTAL PROTEIN, SERUM 5.8 g/dL (6.0-8.3)
[2021-10-30] MEDS: PANTOPRAZOLE 40 MG TAB DR PO SCH ×2 (09:00→21:14)
[2021-10-30] MEDS: ENOXAPARIN SODIUM 40 MG/0.4 ML SYRINGE SQ SCH (09:00)
[2021-10-30] MEDS ORDERED: BUPIVACAINE/PF 0.5% 30ML VIAL ONE (09:18)
[2021-10-30] MEDS ORDERED: LACTATED RINGERS 1000ML 1,000 ML IV ONE (09:24)
[2021-10-30] MEDS ORDERED: MIDAZOLAM HCL 1 MG/ML 2ML VIAL ONE (09:35)
[2021-10-30] MEDS ORDERED: GLYCOPYRROLATE 1 MG/5 ML SYRINGE ONE (09:35)
[2021-10-30] MEDS ORDERED: LIDOCAINE PF 100MG/5ML (2%) SYRINGE 5ML ONE ×2 (09:35→09:36)
[2021-10-30] MEDS ORDERED: DEXAMETHASONE SOD PHOSPHATE 10MG/ML 1ML VIAL ONE (09:35)
[2021-10-30] MEDS ORDERED: SUCCINYLCHOLINE 200MG/10ML SYR ONE (09:35)
[2021-10-30] MEDS ORDERED: LIDOCAINE HCL-MPF 2% 10ML AMP IJ ONE (09:36)
[2021-10-30] MEDS ORDERED: NEOSTIGMINE 5MG/5ML SYR IV ONE (09:36)
[2021-10-30] MEDS ORDERED: PROPOFOL 10 MG/ML 20ML VIAL IV ONE (09:36)
[2021-10-30] MEDS ORDERED: ROCURONIUM 10MG/1ML SYR 10 MG/ML ML ONE (09:36)
[2021-10-30] MEDS ORDERED: ONDANSETRON 4MG INJ ONE (09:36)
[2021-10-30] MEDS ORDERED: CEFAZOLIN SODIUM 1 GM VIAL ONE (10:13)
[2021-10-30] MEDS ORDERED: CEFAZOLIN SODIUM 2 GM VIAL IV ONE (10:15)
[2021-10-30] MEDS ORDERED: FENTANYL CITRATE PF 50 MCG/1 ML 2ML VIAL ONE ×2 (10:26→11:20)
[2021-10-30] MEDS: HYDROMORPHONE 1 MG INJ IVP PRN ×3 (12:52→21:14)
[2021-10-30] MEDS: 0.9%NACL 1000ML 1,000 ML IV SCH ×2 (17:02→17:04)
[2021-10-30] MEDS: KETOROLAC 15MG/ML VIAL (15MG/ML) IV PRN (18:12)
[2021-10-30] MEDS: ONDANSETRON 4MG INJ IVP PRN (21:14)
[2021-10-30] MEDS: TEMAZEPAM 15 MG CAPSULE PO PRN (21:14)
[2021-10-31] VITALS (7 sets, daily range): BP systolic 116–134; BP diastolic 56–80
[2021-10-31] MEDS: ZOSYN 3.375GM +NS 50ML IV SCH ×3 (03:08→18:08)
[2021-10-31] MEDS: 0.9%NACL 1000ML 1,000 ML IV SCH ×2 (03:08→18:35)
[2021-10-31 05:59] LABS: BASOPHILS % (AUTO) 0.3 % (0.0-5.0); EOSINOPHILS % (AUTO) 2.6 % (0.0-8.0); HEMATOCRIT 29.5 % (36-48); LYMPHOCYTES % (AUTO) 16.7 % (21.0-51.0); MEAN CORPUSCULAR HEMOGLOBIN 28.7 pg (27.0-33.0); MEAN CORPUSCULAR HGB CONC 33.6 g/dL (32.0-36.0); MEAN CORPUSCULAR VOLUME 85.5 fL (79-99); MONOCYTES % (AUTO) 4.5 % (3.0-13.0); NEUTROPHILS % (AUTO) 75.4 % (40.0-77.0); PLATELET COUNT (AUTO) 168 K/uL (130-400); RED BLOOD CELL COUNT(AUTO) 3.45 MIL/uL (4.00-5.50); RED CELL DISTRIBUTION WIDTH 13.2 % (11.0-15.5); WHITE BLOOD COUNT (AUTO) 5.8 K/uL (4.8-10.8)
[2021-10-31] MEDS: HYDROMORPHONE 1 MG INJ IVP PRN ×4 (06:00→22:00)
[2021-10-31 06:21] LABS: ALBUMIN 2.5 g/dL (3.5-5.0); CREATININE 1.9 mg/dL (0.5-1.5); MAGNESIUM 1.8 mg/dL (1.80-2.40); POTASSIUM 3.6 mmol/L (3.5-5.1); TOTAL PROTEIN, SERUM 5.7 g/dL (6.0-8.3)
[2021-10-31] MEDS: KETOROLAC 15MG/ML VIAL (15MG/ML) IV PRN ×2 (08:03→18:40)
[2021-10-31] MEDS: PANTOPRAZOLE 40 MG TAB DR PO SCH ×2 (08:03→22:00)
[2021-10-31] MEDS: ENOXAPARIN SODIUM 40 MG/0.4 ML SYRINGE SQ SCH (08:04)
[2021-10-31] MEDS: ONDANSETRON 4MG INJ IVP PRN ×2 (10:41→22:00)
[2021-10-31] MEDS ORDERED: MORPHINE 2 MG SYG IVP PRN (12:30)
[2021-10-31] MEDS ORDERED: ONDANSETRON 4MG INJ IVP PRN (16:00)
[2021-11-01] MEDS: ZOSYN 3.375GM +NS 50ML IV SCH (02:51)
[2021-11-01] MEDS: 0.9%NACL 1000ML 1,000 ML IV SCH ×3 (03:34→21:29)
[2021-11-01] MEDS: HYDROMORPHONE 1 MG INJ IVP PRN ×4 (04:39→21:30)
[2021-11-01 04:40] VITALS: BP 119/76
[2021-11-01 05:16] LABS: EOSINOPHILS % (AUTO) 8.9 % (0.0-8.0); HEMATOCRIT 32.2 % (36-48); LYMPHOCYTES % (AUTO) 22.2 % (21.0-51.0); MEAN CORPUSCULAR HEMOGLOBIN 28.8 pg (27.0-33.0); MEAN CORPUSCULAR HGB CONC 33.2 g/dL (32.0-36.0); MEAN CORPUSCULAR VOLUME 86.6 fL (79-99); MONOCYTES % (AUTO) 5.3 % (3.0-13.0); PLATELET COUNT (AUTO) 165 K/uL (130-400); RED BLOOD CELL COUNT(AUTO) 3.72 MIL/uL (4.00-5.50); RED CELL DISTRIBUTION WIDTH 13.5 % (11.0-15.5); WHITE BLOOD COUNT (AUTO) 5.3 K/uL (4.8-10.8)
[2021-11-01 05:30] LABS: ALBUMIN 2.5 g/dL (3.5-5.0); BILIRUBIN,DIRECT 0.1 mg/dL (0.0-0.3); CREATININE 4.4 mg/dL (0.5-1.5); MAGNESIUM 1.9 mg/dL (1.80-2.40); POTASSIUM 3.8 mmol/L (3.5-5.1); TOTAL PROTEIN, SERUM 5.9 g/dL (6.0-8.3)
[2021-11-01] MEDS: PANTOPRAZOLE 40 MG TAB DR PO SCH ×2 (07:37→21:28)
[2021-11-01] MEDS: ENOXAPARIN SODIUM 40 MG/0.4 ML SYRINGE SQ SCH (07:38)
[2021-11-01 08:00] VITALS: BP 149/86
[2021-11-01 09:52] LABS: AMYLASE 74 U/L (25-115); LIPASE 269 U/L (114-286)
[2021-11-01] MEDS ORDERED: DICYCLOMINE HCL 20 MG TAB PO PRN (10:00)
[2021-11-01] MEDS: GABAPENTIN 100 MG CAPSULE PO SCH ×3 (10:21→21:28)
[2021-11-01 12:00] VITALS: BP 131/82
[2021-11-01] MEDS ORDERED: 0.9%NACL 1000ML 1,000 ML IV SCH (14:30)
[2021-11-01] MEDS: ONDANSETRON 4MG INJ IVP PRN (18:23)
[2021-11-01 20:31] VITALS: BP 150/92
[2021-11-01] MEDS: CEFTRIAXONE 1G VIAL IVP SCH (21:28)
[2021-11-02 00:24] VITALS: BP 147/84
[2021-11-02 04:16] VITALS: BP 133/71
[2021-11-02 04:20] LABS: BASOPHILS % (AUTO) 0.3 % (0.0-5.0); EOSINOPHILS % (AUTO) 9.8 % (0.0-8.0); HEMATOCRIT 31.2 % (36-48); LYMPHOCYTES % (AUTO) 20.3 % (21.0-51.0); MEAN CORPUSCULAR HEMOGLOBIN 28.8 pg (27.0-33.0); MEAN CORPUSCULAR VOLUME 84.8 fL (79-99); MONOCYTES % (AUTO) 5.8 % (3.0-13.0); NEUTROPHILS % (AUTO) 63.3 % (40.0-77.0); NUCLEATED RED BLOOD CELLS 0.3 % (0.0-0.19); PLATELET COUNT (AUTO) 185 K/uL (130-400); RED BLOOD CELL COUNT(AUTO) 3.68 MIL/uL (4.00-5.50); RED CELL DISTRIBUTION WIDTH 13.2 % (11.0-15.5); WHITE BLOOD COUNT (AUTO) 5.8 K/uL (4.8-10.8)
[2021-11-02 04:42] LABS: INR 0.98 (0.85-1.15); PROTHROMBIN TIME 10.7 SEC (9.6-11.6)
[2021-11-02 04:49] LABS: ALBUMIN 2.1 g/dL (3.5-5.0); CREATININE 3.7 mg/dL (0.5-1.5); MAGNESIUM 1.8 mg/dL (1.80-2.40); POTASSIUM 3.7 mmol/L (3.5-5.1); TOTAL PROTEIN, SERUM 5.4 g/dL (6.0-8.3)
[2021-11-02 09:42] VITALS: BP 156/85
[2021-11-02 11:00] VITALS: BP 119/83
[2021-11-02] MEDS: ENOXAPARIN SODIUM 40 MG/0.4 ML SYRINGE SQ SCH (11:19)
[2021-11-02] MEDS: GABAPENTIN 100 MG CAPSULE PO SCH ×3 (11:20→20:39)
[2021-11-02] MEDS: POLYETHYLENE GLYCOL 3350 17 GM POWD.PACK PO SCH (11:20)
[2021-11-02] MEDS: PANTOPRAZOLE 40 MG TAB DR PO SCH ×2 (11:20→20:37)
[2021-11-02] MEDS: HYDROMORPHONE 1 MG INJ IVP PRN ×2 (11:23→15:27)
[2021-11-02] MEDS: ONDANSETRON 4MG INJ IVP PRN ×2 (11:23→20:39)
[2021-11-02] MEDS: 0.9%NACL 1000ML 1,000 ML IV SCH ×3 (11:24→22:46)
[2021-11-02 16:00] VITALS: BP 152/84
[2021-11-02] MEDS: SUCRALFATE 1 GM TABLET PO SCH ×2 (17:19→22:44)
[2021-11-02 20:00] VITALS: BP 152/86
[2021-11-02] MEDS: DICYCLOMINE HCL 20 MG TAB PO SCH (20:37)
[2021-11-02] MEDS: 0.9%NACL 10ML VIAL IV SCH (20:37)
[2021-11-02] MEDS: CEFTRIAXONE 1G VIAL IVP SCH (20:39)
[2021-11-02] MEDS: HYDROMORPHONE 0.5 MG SYG (0.5MG/0.5ML) IVP PRN (20:40)
[2021-11-03 00:27] VITALS: BP 139/63
[2021-11-03 04:42] VITALS: BP 125/63
[2021-11-03] MEDS: SUCRALFATE 1 GM TABLET PO SCH ×4 (05:35→23:23)
[2021-11-03 05:43] LABS: BASOPHILS % (AUTO) 0.3 % (0.0-5.0); EOSINOPHILS % (AUTO) 9.9 % (0.0-8.0); LYMPHOCYTES % (AUTO) 20.8 % (21.0-51.0); MEAN CORPUSCULAR HEMOGLOBIN 28.6 pg (27.0-33.0); MEAN CORPUSCULAR HGB CONC 34.3 g/dL (32.0-36.0); MEAN CORPUSCULAR VOLUME 83.3 fL (79-99); MONOCYTES % (AUTO) 5.5 % (3.0-13.0); NEUTROPHILS % (AUTO) 62.9 % (40.0-77.0); PLATELET COUNT (AUTO) 206 K/uL (130-400); RED CELL DISTRIBUTION WIDTH 13.4 % (11.0-15.5); WHITE BLOOD COUNT (AUTO) 6.3 K/uL (4.8-10.8)
[2021-11-03 05:59] LABS: ALBUMIN 2.2 g/dL (3.5-5.0); CREATININE 1.7 mg/dL (0.5-1.5); MAGNESIUM 1.5 mg/dL (1.80-2.40); POTASSIUM 3.5 mmol/L (3.5-5.1); TOTAL PROTEIN, SERUM 5.4 g/dL (6.0-8.3)
[2021-11-03 08:22] VITALS: BP 127/76
[2021-11-03] MEDS: ENOXAPARIN SODIUM 40 MG/0.4 ML SYRINGE SQ SCH (08:48)
[2021-11-03] MEDS: DICYCLOMINE HCL 20 MG TAB PO SCH ×3 (08:48→21:34)
[2021-11-03] MEDS: GABAPENTIN 100 MG CAPSULE PO SCH ×3 (08:48→21:34)
[2021-11-03] MEDS: PANTOPRAZOLE 40 MG TAB DR PO SCH ×2 (08:48→21:34)
[2021-11-03] MEDS: POLYETHYLENE GLYCOL 3350 17 GM POWD.PACK PO SCH (09:00)
[2021-11-03] MEDS: HYDROMORPHONE 0.5 MG SYG (0.5MG/0.5ML) IVP PRN ×2 (09:01→13:57)
[2021-11-03] MEDS: 0.9%NACL 10ML VIAL IV SCH ×2 (09:09→21:33)
[2021-11-03] MEDS: 0.9%NACL 1000ML 1,000 ML IV SCH ×2 (11:46→23:23)
[2021-11-03] MEDS: ACETAMINOPHEN 325 MG TAB PO PRN (11:46)
[2021-11-03 11:54] VITALS: BP 138/73
[2021-11-03] MEDS ORDERED: MAG/ALUM/SIMETH 30 ML UDCUP PO PRN (12:00)
[2021-11-03 14:35] LABS: APPEARANCE,URINE CLEAR (CLEAR); BILIRUBIN,URINE NEGATIVE (NEGATIVE); COLOR,URINE YELLOW (YELLOW); GLUCOSE, URINE (UA) NEGATIVE (NEGATIVE); KETONES,URINE NEGATIVE (NEGATIVE); LEUKOCYTE ESTERASE ,URINE SMALL (NEGATIVE); NITRATE,URINE NEGATIVE (NEGATIVE); OCCULT BLOOD,URINE MODERATE (NEGATIVE); PROTEIN,URINE NEGATIVE (NEGATIVE); UROBILINOGEN,URINE 0.2 mg/dL (0.2-1.0)
[2021-11-03 14:42] LABS: BACTERIA,URINE Few /HPF (None Seen); SQUAMOUS EPITHELIAL CELL,UR Rare /HPF (0-2)
[2021-11-03 14:43] LABS: MUCUS,URINE Few LPF (None Seen)
[2021-11-03] MEDS: MAGNESIUM 2GM PREMIX 50ML 50 ML IV SCH (15:32)
[2021-11-03 15:54] VITALS: BP 99/75
[2021-11-03] MEDS ORDERED: HYDROCODONE/ACETAMINOPHEN 10/325 MG TAB PO PRN (17:30)
[2021-11-03] MEDS ORDERED: IBUPROFEN 800 MG TAB PO PRN (17:30)
[2021-11-03] MEDS: MORPHINE 2 MG SYG IVP PRN (18:11)
[2021-11-03 19:00] VITALS: BP 139/67
[2021-11-03] MEDS ORDERED: NEOMY SULF/BACITRA/POLYMYXIN B 1 EACH PACKET TP ONE (19:30)
[2021-11-03] MEDS: CEFTRIAXONE 1G VIAL IVP SCH (21:33)
[2021-11-04] VITALS (7 sets, daily range): BP systolic 122–149; BP diastolic 61–101
[2021-11-04] MEDS: SUCRALFATE 1 GM TABLET PO SCH ×3 (05:12→17:50)
[2021-11-04 06:15] LABS: HEMATOCRIT 30.3 % (36-48); MEAN CORPUSCULAR HEMOGLOBIN 28.6 pg (27.0-33.0); MEAN CORPUSCULAR HGB CONC 33.7 g/dL (32.0-36.0); MEAN CORPUSCULAR VOLUME 84.9 fL (79-99); PLATELET COUNT (AUTO) 206 K/uL (130-400); RED BLOOD CELL COUNT(AUTO) 3.57 MIL/uL (4.00-5.50); RED CELL DISTRIBUTION WIDTH 14.4 % (11.0-15.5); WHITE BLOOD COUNT (AUTO) 6.5 K/uL (4.8-10.8)
[2021-11-04 06:49] LABS: ALBUMIN 2.2 g/dL (3.5-5.0); CREATININE 2.7 mg/dL (0.5-1.5); MAGNESIUM 2.1 mg/dL (1.80-2.40); POTASSIUM 3.7 mmol/L (3.5-5.1); TOTAL PROTEIN, SERUM 5.2 g/dL (6.0-8.3)
[2021-11-04] MEDS: GABAPENTIN 100 MG CAPSULE PO SCH ×3 (08:29→20:43)
[2021-11-04] MEDS: PANTOPRAZOLE 40 MG TAB DR PO SCH ×2 (08:29→20:44)
[2021-11-04] MEDS: DICYCLOMINE HCL 20 MG TAB PO SCH ×3 (08:29→20:44)
[2021-11-04] MEDS: ENOXAPARIN SODIUM 40 MG/0.4 ML SYRINGE SQ SCH (08:30)
[2021-11-04] MEDS: NEOMY SULF/BACITRA/POLYMYXIN B 1 EACH PACKET TP SCH (08:30)
[2021-11-04] MEDS: HYDROCODONE/ACETAMINOPHEN 5/325 MG TAB PO PRN ×2 (08:40→14:35)
[2021-11-04] MEDS: 0.9%NACL 1000ML 1,000 ML IV SCH ×2 (08:54→22:36)
[2021-11-04 08:57] LABS: EOSINOPHILS % (MANUAL) 14 % (1-6); LYMPHOCYTES % (MANUAL) 23 % (22-44); MONOCYTES % (MANUAL) 4 % (2-9); PLATELET MORPHOLOGY COMMENT ADEQUATE; REACTIVE LYMPHOCYTES 1 % (0-0); SEGMENTED NEUTROPHILS % 58 % (40-70)
[2021-11-04] MEDS: POLYETHYLENE GLYCOL 3350 17 GM POWD.PACK PO SCH (08:59)
[2021-11-04] MEDS: 0.9%NACL 10ML VIAL IV SCH ×2 (08:59→22:37)
[2021-11-04] MEDS ORDERED: HYDROMORPHONE 0.5 MG SYG (0.5MG/0.5ML) IVP ONE (20:30)
[2021-11-04] MEDS ORDERED: HYDROMORPHONE 0.5 MG SYG (0.5MG/0.5ML) ONE (20:40)
[2021-11-04] MEDS: CEFTRIAXONE 1G VIAL IVP SCH (20:43)
[2021-11-04] MEDS: ONDANSETRON 4MG INJ IVP PRN (20:43)
[2021-11-04] MEDS: MORPHINE 2 MG SYG IVP PRN (22:26)
[2021-11-05 00:01] LABS: APPEARANCE,URINE CLOUDY (CLEAR); BILIRUBIN,URINE NEGATIVE (NEGATIVE); COLOR,URINE YELLOW (YELLOW); GLUCOSE, URINE (UA) NEGATIVE (NEGATIVE); KETONES,URINE NEGATIVE (NEGATIVE); LEUKOCYTE ESTERASE ,URINE MODERATE (NEGATIVE); NITRATE,URINE NEGATIVE (NEGATIVE); OCCULT BLOOD,URINE MODERATE (NEGATIVE); PROTEIN,URINE 100 mg/dL (NEGATIVE); UROBILINOGEN,URINE 0.2 mg/dL (0.2-1.0)
[2021-11-05 00:15] LABS: BACTERIA,URINE Few /HPF (None Seen); WBC,URINE TNTC /HPF (0-1)
[2021-11-05] MEDS: SUCRALFATE 1 GM TABLET PO SCH ×5 (00:32→23:21)
[2021-11-05] MEDS: ZOSYN 3.375GM +NS 50ML IV SCH ×4 (00:34→23:21)
[2021-11-05] MEDS: HYDROMORPHONE 0.5 MG SYG (0.5MG/0.5ML) IVP PRN ×4 (00:34→13:52)
[2021-11-05 00:47] VITALS: BP 142/80
[2021-11-05] MEDS: 0.9%NACL 1000ML 1,000 ML IV SCH ×3 (03:46→23:54)
[2021-11-05 04:18] VITALS: BP 130/67
[2021-11-05 05:25] LABS: BASOPHILS % (AUTO) 0.2 % (0.0-5.0); EOSINOPHILS % (AUTO) 1.6 % (0.0-8.0); HEMATOCRIT 32.2 % (36-48); MEAN CORPUSCULAR HEMOGLOBIN 28.5 pg (27.0-33.0); MEAN CORPUSCULAR HGB CONC 33.9 g/dL (32.0-36.0); MEAN CORPUSCULAR VOLUME 84.1 fL (79-99); MONOCYTES % (AUTO) 4.8 % (3.0-13.0); NEUTROPHILS % (AUTO) 79.7 % (40.0-77.0); PLATELET COUNT (AUTO) 204 K/uL (130-400); RED BLOOD CELL COUNT(AUTO) 3.83 MIL/uL (4.00-5.50); RED CELL DISTRIBUTION WIDTH 14.4 % (11.0-15.5); WHITE BLOOD COUNT (AUTO) 8.5 K/uL (4.8-10.8)
[2021-11-05 05:54] LABS: ALBUMIN 2.3 g/dL (3.5-5.0); CREATININE 1.5 mg/dL (0.5-1.5); MAGNESIUM 1.5 mg/dL (1.80-2.40); PHOSPHORUS 3.1 mg/dL (2.5-4.9); POTASSIUM 3.3 mmol/L (3.5-5.1); TOTAL PROTEIN, SERUM 5.7 g/dL (6.0-8.3)
[2021-11-05 08:00] VITALS: BP 118/73
[2021-11-05] MEDS: 0.9%NACL 10ML VIAL IV SCH ×2 (09:00→21:19)
[2021-11-05] MEDS: POLYETHYLENE GLYCOL 3350 17 GM POWD.PACK PO SCH (09:00)
[2021-11-05] MEDS: ONDANSETRON 4MG INJ IVP PRN ×2 (09:16→20:38)
[2021-11-05] MEDS: PANTOPRAZOLE 40 MG TAB DR PO SCH ×2 (09:17→21:12)
[2021-11-05] MEDS: DICYCLOMINE HCL 20 MG TAB PO SCH ×3 (09:17→21:12)
[2021-11-05] MEDS: GABAPENTIN 100 MG CAPSULE PO SCH ×3 (09:18→21:12)
[2021-11-05] MEDS: ENOXAPARIN SODIUM 40 MG/0.4 ML SYRINGE SQ SCH (09:19)
[2021-11-05] MEDS: NEOMY SULF/BACITRA/POLYMYXIN B 1 EACH PACKET TP SCH (09:30)
[2021-11-05 11:57] VITALS: BP 128/81
[2021-11-05] MEDS: MAGNESIUM 2GM PREMIX 50ML 50 ML IV SCH (15:25)
[2021-11-05 16:00] VITALS: BP 107/61
[2021-11-05] MEDS ORDERED: HYDROMORPHONE 0.5 MG SYG (0.5MG/0.5ML) IVP PRN (19:30)
[2021-11-05 20:00] VITALS: BP 132/85
[2021-11-05] MEDS: ACETAMINOPHEN 325 MG TAB PO PRN (23:22)
[2021-11-06] VITALS: BP 98/49
[2021-11-06] MEDS: HYDROMORPHONE 1 MG INJ IVP PRN ×2 (03:10→09:23)
[2021-11-06 04:00] VITALS: BP 108/63
[2021-11-06] MEDS: SUCRALFATE 1 GM TABLET PO SCH ×4 (04:47→23:50)
[2021-11-06 05:31] LABS: BASOPHILS % (AUTO) 0.2 % (0.0-5.0); EOSINOPHILS % (AUTO) 4.2 % (0.0-8.0); HEMATOCRIT 27.9 % (36-48); LYMPHOCYTES % (AUTO) 15.2 % (21.0-51.0); MEAN CORPUSCULAR HEMOGLOBIN 28.7 pg (27.0-33.0); MEAN CORPUSCULAR HGB CONC 33.7 g/dL (32.0-36.0); MEAN CORPUSCULAR VOLUME 85.3 fL (79-99); MONOCYTES % (AUTO) 4.2 % (3.0-13.0); NEUTROPHILS % (AUTO) 75.7 % (40.0-77.0); PLATELET COUNT (AUTO) 190 K/uL (130-400); RED BLOOD CELL COUNT(AUTO) 3.27 MIL/uL (4.00-5.50); RED CELL DISTRIBUTION WIDTH 14.5 % (11.0-15.5); WHITE BLOOD COUNT (AUTO) 8.6 K/uL (4.8-10.8)
[2021-11-06 05:49] LABS: CREATININE 1.3 mg/dL (0.5-1.5); MAGNESIUM 1.9 mg/dL (1.80-2.40); POTASSIUM 3.1 mmol/L (3.5-5.1); TOTAL PROTEIN, SERUM 5.3 g/dL (6.0-8.3)
[2021-11-06 08:34] VITALS: BP 135/71
[2021-11-06] MEDS: POLYETHYLENE GLYCOL 3350 17 GM POWD.PACK PO SCH (09:00)
[2021-11-06] MEDS: DICYCLOMINE HCL 20 MG TAB PO SCH (09:04)
[2021-11-06] MEDS: PANTOPRAZOLE 40 MG TAB DR PO SCH ×2 (09:04→21:12)
[2021-11-06] MEDS: GABAPENTIN 100 MG CAPSULE PO SCH ×3 (09:05→21:13)
[2021-11-06] MEDS: ENOXAPARIN SODIUM 40 MG/0.4 ML SYRINGE SQ SCH (09:07)
[2021-11-06] MEDS: NEOMY SULF/BACITRA/POLYMYXIN B 1 EACH PACKET TP SCH (09:07)
[2021-11-06] MEDS: 0.9%NACL 10ML VIAL IV SCH ×2 (09:13→23:51)
[2021-11-06] MEDS: ZOSYN 3.375GM +NS 50ML IV SCH ×2 (09:13→15:48)
[2021-11-06] MEDS: 0.9%NACL 1000ML 1,000 ML IV SCH ×2 (09:58→21:17)
[2021-11-06 12:00] VITALS: BP 117/66
[2021-11-06] MEDS ORDERED: TAMSULOSIN HCL 0.4 MG CAP.ER.24H PO SCH (13:00)
[2021-11-06] MEDS: TAMSULOSIN HCL 0.4 MG CAP.ER.24H PO SCH (13:54)
[2021-11-06] MEDS ORDERED: OPIUM PR PRN (15:00)
[2021-11-06] MEDS ORDERED: TIZANIDINE HCL 2 MG TABLET PO PRN (15:00)
[2021-11-06] MEDS ORDERED: ERGOCALCIFEROL (VITAMIN D2) 50,000 UNIT CAPSULE PO SCH (15:00)
[2021-11-06] MEDS ORDERED: BELLADONNA PR PRN (15:00)
[2021-11-06] MEDS ORDERED: HYDROCODONE/ACETAMINOPHEN 10/325 MG TAB PO PRN (15:00)
[2021-11-06] MEDS ORDERED: OPIUM/BELLADONNA ALKALOIDS 1 EACH SUPP.RECT RC PRN (15:30)
[2021-11-06] MEDS: HYDROCODONE/ACETAMINOPHEN 5/325 MG TAB PO PRN ×2 (15:50→22:01)
[2021-11-06] MEDS: ONDANSETRON 4MG INJ IVP PRN (15:58)
[2021-11-06 16:00] VITALS: BP 135/84
[2021-11-06 20:00] VITALS: BP 114/67
[2021-11-06] MEDS ORDERED: DIAZEPAM 5 MG TABLET PO SCH (21:00)
[2021-11-06] MEDS ORDERED: VIBEGRON 75 MG PO SCH (21:00)
[2021-11-06] MEDS: TEMAZEPAM 15 MG CAPSULE PO PRN (21:13)
[2021-11-07] VITALS: BP 98/54
[2021-11-07] MEDS ORDERED: DIAZEPAM 5 MG TABLET PO PRN
[2021-11-07 04:00] VITALS: BP 119/68
[2021-11-07] MEDS: SUCRALFATE 1 GM TABLET PO SCH ×2 (04:21→10:21)
[2021-11-07] MEDS: HYDROCODONE/ACETAMINOPHEN 5/325 MG TAB PO PRN (04:21)
[2021-11-07 06:49] LABS: BASOPHILS % (AUTO) 0.3 % (0.0-5.0); EOSINOPHILS % (AUTO) 6.2 % (0.0-8.0); HEMATOCRIT 26.6 % (36-48); LYMPHOCYTES % (AUTO) 15.5 % (21.0-51.0); MEAN CORPUSCULAR HEMOGLOBIN 29.1 pg (27.0-33.0); MEAN CORPUSCULAR HGB CONC 33.8 g/dL (32.0-36.0); MEAN CORPUSCULAR VOLUME 86.1 fL (79-99); MONOCYTES % (AUTO) 3.6 % (3.0-13.0); PLATELET COUNT (AUTO) 196 K/uL (130-400); RED BLOOD CELL COUNT(AUTO) 3.09 MIL/uL (4.00-5.50); RED CELL DISTRIBUTION WIDTH 14.5 % (11.0-15.5); WHITE BLOOD COUNT (AUTO) 7.6 K/uL (4.8-10.8)
[2021-11-07 07:00] LABS: CREATININE 1.1 mg/dL (0.5-1.5); POTASSIUM 3.4 mmol/L (3.5-5.1)
[2021-11-07 08:00] VITALS: BP 133/73
[2021-11-07] MEDS ORDERED: THYROID PORK 90 MG PO SCH (09:00)
[2021-11-07] MEDS: POLYETHYLENE GLYCOL 3350 17 GM POWD.PACK PO SCH (09:00)
[2021-11-07] MEDS ORDERED: Vitamin B Complex/Vit C/Folic Acid PO SCH (09:00)
[2021-11-07] MEDS: TAMSULOSIN HCL 0.4 MG CAP.ER.24H PO SCH (10:20)
[2021-11-07] MEDS: ENOXAPARIN SODIUM 40 MG/0.4 ML SYRINGE SQ SCH (10:20)
[2021-11-07] MEDS: NEOMY SULF/BACITRA/POLYMYXIN B 1 EACH PACKET TP SCH (10:20)
[2021-11-07] MEDS: PANTOPRAZOLE 40 MG TAB DR PO SCH (10:20)
[2021-11-07] MEDS: GABAPENTIN 100 MG CAPSULE PO SCH (10:22)
[2021-11-07] MEDS: 0.9%NACL 10ML VIAL IV SCH (10:25)
[2021-11-07 12:00] VITALS: BP 126/69
== END 2021-11-07 12:50 | disposition home or self-care (01) | DRG 742 ==
LOC: EDH 16:25 → EDHIP 16:26 → UNDOADMOB 16:26 → 3CH 16:26 → OBSVTOIN 18:49 → 3CH 18:49
PROVIDERS: ADMIT Internal Medicine Pulmonary Disease; ATTEND Internal Medicine Pulmonary Disease
PROC: 3E1M48Z Irrigation of Peritoneal Cavity using Irrigating Substance, Percutaneous Endoscopic Approach (ICD-10-PCS; principal; 2021-10-30 10:00)
PROC: 0UT64ZZ Resection of Left Fallopian Tube, Percutaneous Endoscopic Approach (ICD-10-PCS; 2021-10-30 10:00)
PROC: 0UT14ZZ Resection of Left Ovary, Percutaneous Endoscopic Approach (ICD-10-PCS; 2021-10-30 10:00)
PROC: 3E1M48Z Irrigation of Peritoneal Cavity using Irrigating Substance, Percutaneous Endoscopic Approach (ICD-10-PCS; 2021-10-30 10:00)
DX: N83.202 Unspecified ovarian cyst, left side (principal); N17.9 Acute kidney failure, unspecified; R18.8 Other ascites; K76.89 Other specified diseases of liver; Z20.822 Contact with and (suspected) exposure to COVID-19; D72.829 Elevated white blood cell count, unspecified; M79.7 Fibromyalgia; N18.32 Chronic kidney disease, stage 3b; D63.8 Anemia in other chronic diseases classified elsewhere; E27.8 Other specified disorders of adrenal gland; K66.0 Peritoneal adhesions (postprocedural) (postinfection); N13.9 Obstructive and reflux uropathy, unspecified; G89.29 Other chronic pain; K21.9 Gastro-esophageal reflux disease without esophagitis; Z90.721 Acquired absence of ovaries, unilateral; Z90.711 Acquired absence of uterus with remaining cervical stump; N99.0 Postprocedural (acute) (chronic) kidney failure
CPT/HCPCS: 36415; 74176; 74177; 76705; 78264; 80048; 80053; 80076; 81001; 81003; 82150; 82550; 82948; 83690; 83735; 83935; 84100; 84300; 84484; 85025; 85610; 86665; 86850; 86900; 86901; 87088; 87635; 93306; A4351; A9541; G0378; J0330; J0690; J0696; J1100; J1170; J1650; J1885; J2001; J2250; J2270; J2405; J2543; J2704; J2710; J3010; J3475; J3490; J7030; J7120; Q9967

== ENCOUNTER → 2023-10-15 | Outpatient (CLI) | payer BC ==
[~2023-10-15] MED LIST changes: -AMIT50TA3 PO; +BELLADONNA PR; -CYCL-309 PO; -FAMO-136 PO; +FOLI0.8T2 PO; +HYDR-4068 PO; -ONDA4TAB10 PO; +OPIUM PR; +THYR90TA12 PO; +VIBE75TA PO; +VITAD50000 PO
== END | disposition home or self-care (01) ==
LOC: RAH 07:42
PROVIDERS: ATTEND Family Medicine
DX: K43.9 Ventral hernia without obstruction or gangrene (principal); R19.00 Intra-abdominal and pelvic swelling, mass and lump, unspecified site
CPT/HCPCS: 76705

== ENCOUNTER 2024-01-08 19:04 | Emergency (ER) | payer BC ==
[~2024-01-08] VITALS: Ht 160 cm; Wt 72.6 kg
[2024-01-08 19:58] LABS: BASOPHILS # (AUTO) 0.06 K/uL (0.00-0.20); BASOPHILS % (AUTO) 0.7 % (0.0-5.0); EOSINOPHILS # (AUTO) 0.14 K/uL (0.00-0.70); EOSINOPHILS % (AUTO) 1.7 % (0.0-8.0); HEMATOCRIT 43.4 % (36-48); IMMATURE GRANULOCYTE ABSOLUTE 0.07 K/uL (0-1); LYMPHOCYTES # (AUTO) 2.6 K/uL (1.0-4.8); LYMPHOCYTES % (AUTO) 30.4 % (21.0-51.0); MEAN CORPUSCULAR HEMOGLOBIN 29.4 pg (27.0-33.0); MEAN CORPUSCULAR HGB CONC 34.3 g/dL (32.0-36.0); MEAN CORPUSCULAR VOLUME 85.6 fL (79-99); MONOCYTES # (AUTO) 0.4 K/uL (0.1-1.0); MONOCYTES % (AUTO) 5.1 % (3.0-13.0); NEUTROPHILS # (AUTO) 5.2 K/uL (1.8-7.7); NEUTROPHILS % (AUTO) 61.3 % (40.0-77.0); PLATELET COUNT (AUTO) 215 K/uL (130-400); RED BLOOD CELL COUNT(AUTO) 5.07 MIL/uL (4.00-5.50); RED CELL DISTRIBUTION WIDTH 12.6 % (11.0-15.5); WHITE BLOOD COUNT (AUTO) 8.4 K/uL (4.8-10.8)
[2024-01-08 20:09] LABS: CREATININE 1.3 mg/dL (0.5-1.0); POTASSIUM 4.5 mmol/L (3.5-5.1)
[2024-01-08 20:09] LABS: APPEARANCE,URINE CLEAR (CLEAR); BILIRUBIN,URINE NEGATIVE (NEGATIVE); COLOR,URINE COLORLESS (YELLOW); GLUCOSE, URINE (UA) NEGATIVE (NEGATIVE); KETONES,URINE NEGATIVE (NEGATIVE); LEUKOCYTE ESTERASE ,URINE NEGATIVE Leu/uL (NEGATIVE); NITRATE,URINE NEGATIVE (NEGATIVE); OCCULT BLOOD,URINE NEGATIVE (NEGATIVE); PH,URINE 5.5 (5.0-8.0); PROTEIN,URINE NEGATIVE (NEGATIVE); UROBILINOGEN,URINE 0.2 mg/dL (0.2-1.0)
[2024-01-08 20:11] LABS: INR 0.97 (0.85-1.15); PROTHROMBIN TIME 10.5 SEC (9.6-11.6)
[2024-01-08 20:14] LABS: ALBUMIN 3.9 g/dL (3.5-5.0); BILIRUBIN,TOTAL 0.4 mg/dL (0.2-1.0); TOTAL PROTEIN, SERUM 8.1 g/dL (6.0-8.3)
[2024-01-08 20:18] LABS: BACTERIA,URINE RARE /HPF (None Seen); MUCUS,URINE RARE LPF (None Seen); RBC,URINE 0-1 /HPF (0-1); SQUAMOUS EPITHELIAL CELL,UR FEW /HPF (0-2)
[2024-01-08 20:54] VITALS: BP 117/92; PULSE 88; RESP 17; TEMP 98.3; O2SAT 96
== END 2024-01-08 21:03 | disposition home or self-care (01) ==
LOC: EDH 19:04
DX: R14.0 Abdominal distension (gaseous) (principal); M79.7 Fibromyalgia; N18.9 Chronic kidney disease, unspecified; K21.9 Gastro-esophageal reflux disease without esophagitis; Z79.899 Other long term (current) drug therapy; Z87.19 Personal history of other diseases of the digestive system; Z90.49 Acquired absence of other specified parts of digestive tract; Z90.710 Acquired absence of both cervix and uterus
CPT/HCPCS: 36415; 76700; 80053; 81001; 82550; 83605; 85025; 85610; 85730; 87040; 87086; 87186

== ENCOUNTER 2025-01-20 20:05 | Emergency (ER) | payer BC ==
[~2025-01-20] VITALS: Ht 162.6 cm; Wt 81.2 kg
--- NOTE | 2025-01-20 20:39 | ERN ---
ED Note History of Present Illness Stated Complaint: C/O ASCITES,ABD PAIN, CHEST PRESSURE, RASH Chief Complaint: Multiple Complaints Time Seen by MD: 20:29 Dictation: This is a 45-year-old female who presented to the emergency room with her spouse with complaints of increasing abdominal girth and epigastric pain with a pressure in her chest and she also reports itchy rash all over the body along with nausea. She denied any fevers or chills no vomitings or diarrhea. Patient had idiopathic ascites and multiple cysts in her liver and kidney inpatient had an extensive evaluation done over the past few years including at [facility]. Her autoimmune workup included C3-C4, WALDO, C Anca p-ANCA-all negative. Fungal- Blastomyces, Aspergillus negative, HIV and hepatitis B negative. EBV IgG was positive. Patient at 1 point had positive CA 125 and he was also referred to oncologist and her left ovary was removed in October 2021 which was negative for malignancy. 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 Temperature 98.7 pulse 75 respirations 20 blood pressure 122/73 with a pulse oximetry of 98% on room air Her chronic medical problems include functioning right kidney, left-sided pelvic kidney, hypothyroidism, polycystic hepatic and kidney disease, gastroesophageal reflux disease, chronic kidney disease, Charcot Kassie tooth disease, mitochondrial myopathy, chronic pain syndrome-on p.o. Dilaudid Allergies: Coded Allergies: No Known Drug Allergies (Verified Allergy, Unknown, 08/30/13) Home Meds Active Scripts Diazepam (Valium) 5 Mg Tablet, 5 MG PO BID, #20 TAB Prov:CHARU ANDRADE MD 09/02/21 Omeprazole (Omeprazole) 20 Mg Tablet., 20 MG PO DAILY, #30 TAB Prov:BERNARD OBRIEN 07/16/21 Reported Medications [Belladonna/Opium] No Conflict Check, 1 SUPP FL QIDP PRN for ABDOMINAL PAIN 10/27/21 Cholecalciferol (Vitamin D3) 50,000 Units Cap, 26951 UNITS PO EVERY WEEK, CAP 10/27/21 Hydrocodone/Acetaminophen (Hydrocodon-Acetaminophn 10-325) 1 Each Tablet, 1 EACH PO BID PRN for ABDOMINAL PAIN, TAB 10/27/21 Folic Acid/Vitamin B Comp W-C (Nephro-Becky Tablet) 0.8 Mg Tablet, 0.8 MG PO AM, TAB 10/27/21 Thyroid,Pork (Welding Machine Operator Submerged Arc Thyroid) 90 Mg Tablet, 90 MG PO AM, TAB 10/27/21 Vibegron (Gemtesa) 75 Mg Tablet, 75 MG PO HS, TAB 10/27/21 Tizanidine HCl (Tizanidine HCl) 6 Mg Capsule, 6 MG PO TIDP PRN for MUSCLE SPASMS, CAP 07/20/21 Past Medical History Past Medical History: GERD, Renal Disese, Other Additional Past Medical Hx: FIBROMYALGIA, CHRONIC KIDNEY DISEASSE, GERD, ASCITES Surgical History: Hysterectomy, Cholecystectomy, Other, Surgical History Other: HERNIA REPAIR; ONLY RT KIDNEY FUNCTIONING Family History: Negative Social History: Negative, Lives with family History: Not Applicable RN Note Reviewed/Agreed w/PFSH: Yes Review of System Dictation Constitutional: Negative for fever,chills, and weight loss Eyes: Negative for injury, pain,redness, and discharge ENT: Negative for injury,pain or swelling Cardiovascular: Positive for chest pressure, denied palpitations, and edema Respiratory: Negative for shortness of breath, cough, and wheezing, Abdomen/GI: Positive for abdominal pain, nausea, denied vomiting, diarrhea, and constipation Back: Negative for injury and pain : Negative for injury, bleeding and discharge MS/Extremity: Negative for injury and deformity Skin: Positive for rash, and itching Neuro: Negative for headache, weakness, numbness, tingling, and seizure Psych: Negative for suicide ideation, homicidal ideation, and hallucinations Initial Vital Sign VS Vital Signs Date Time Temp Pulse Resp B/P (MAP) Pulse Ox O2 Delivery O2 Flow Rate FiO2 01/20/25 20:10 98.8 75 20 122/73 98 Room Air 01/20/25 20:20 0 21 Physical Exam Dictation General: awake, alert, NAD chronically ill-appearing Head/Face: Normocephalic, atraumatic Eyes: PERRL, EOMI, vision at baseline ENT: oral cavity clear, TMs clear, no signs of infection Neck: Trachea midline, supple, no nuchal rigidity Cardiovascular: RRR, normal S1/S2, No MRGs, no JVD Respiratory: CTAB, no respiratory distress, No rales or wheezes Abdomen: Soft, mild tenderness in the epigastric area, mildly distended, normal bowel sounds, no guarding or rebound. Did not appreciate any fluid wave Skin: Warm, dry, normal turgor, I did not appreciate any rash MS/Extremity: Pulses equal, no cyanosis, neurovascular intact, FROM Neuro: COAx4, GCS 15, strength 5/5, CN 2-12 intact, normal cerebellar exam, normal gait, Psych: Normal behavior, mood, and affect normal Extremities-trace edema without any palpable cords, Homans sign is negative Results (Laboratory/Radiology) Laboratory/Radiology Laboratory Tests Test 01/20/25 20:57 White Blood Count 7.2 K/uL (4.8-10.8) Red Blood Count 4.12 MIL/uL (4.00-5.50) Hemoglobin 12.0 g/dL (12.0-16.0) Hematocrit 35.2 % (36-48) L Mean Corpuscular Volume 85.4 fL (79-99) Mean Corpuscular Hemoglobin 29.1 pg (27.0-33.0) Mean Corpuscular Hemoglobin Concent 34.1 g/dL (32.0-36.0) Red Cell Distribution Width 13.5 % (11.0-15.5) Platelet Count 208 K/uL (130-400) Mean Platelet Volume 9.9 fL (7.5-10.5) Immature Granulocyte % (Auto) 0.7 % (0-1) Neutrophils (%) (Auto) 54.0 % (40.0-77.0) Lymphocytes (%) (Auto) 36.2 % (21.0-51.0) Monocytes (%) (Auto) 5.8 % (3.0-13.0) Eosinophils (%) (Auto) 2.9 % (0.0-8.0) Basophils (%) (Auto) 0.4 % (0.0-5.0) Neutrophils # (Auto) 3.9 K/uL (1.8-7.7) Lymphocytes # (Auto) 2.6 K/uL (1.0-4.8) Monocytes # (Auto) 0.4 K/uL (0.1-1.0) Eosinophils # (Auto) 0.21 K/uL (0.00-0.70) Basophils # (Auto) 0.03 K/uL (0.00-0.20) Absolute Immature Granulocyte (auto 0.05 K/uL (0-1) Nucleated Red Blood Cells 0.0 % (0.0-0.19) Sodium Level 143 mmol/L (136-145) Potassium Level 4.1 mmol/L (3.5-5.1) Chloride Level 107 mmol/L (101-111) Carbon Dioxide Level 25 mmol/L (21-32) Blood Urea Nitrogen 17 mg/dL (7-18) Creatinine 1.5 mg/dL (0.5-1.0) H Glomerular Filtration Rate Calc 43 mL/min (>90) Random Glucose 115 mg/dL (70-105) H Total Calcium 8.8 mg/dL (8.5-10.1) Total Bilirubin 0.3 mg/dL (0.2-1.0) Aspartate Amino Transf (AST/SGOT) 26 U/L (10-37) Alanine Aminotransferase (ALT/SGPT) 40 U/L (12-78) Alkaline Phosphatase 60 U/L (50-136) Total Creatine Kinase 28 U/L (21-232) # Total Protein 6.6 g/dL (6.0-8.3) Albumin 3.4 g/dL (3.5-5.0) L Lipase 53 U/L (16-77) Human Chorionic Gonadotropin, Quant 3 mIU/mL (0-5) Labs Reviewed?: Yes CT Scan Comment: REASON: Ascites ORDERING PHYSICIAN: JULIANA MONTEZ MD PROCEDURE: ABD PEL WO - CT ABDOMEN/PELVIS W/O CONTRAST EXAM: CT Abdomen and Pelvis Without IV contrast. CLINICAL HISTORY: Patient presents with abdominal distension and suspected ascites. TECHNIQUE: Axial computed tomography images of the abdomen and pelvis without intravenous contrast. CONTRAST: No IV contrast. COMPARISON: CT dated 11/04/2021. FINDINGS: LUNG BASES: Interval resolution of previously demonstrated bilateral pleural effusions. LIVER: Mild hepatomegaly with the right hepatic lobe measuring up to 18.5 cm in craniocaudal dimension. Features of hepatic steatosis. Multiple small hypodense lesions scattered throughout the hepatic parenchyma, likely representing simple hepatic cysts. GALLBLADDER AND BILE DUCTS: Gallbladder surgically absent. No biliary ductal dilatation. PANCREAS: Normal. SPLEEN: Normal. ADRENAL GLANDS: Normal. KIDNEYS, URETERS, AND BLADDER: Redemonstrated ectopic left pelvic kidney. No hydronephrosis or urinary calculi. Urinary bladder distended with an interval new 3.0 ??? 3.6 cm superior right lateral wall diverticulum containing a 0.4 cm calcific focus, likely representing mural calcification versus vesical calculus. STOMACH AND BOWEL: No evidence of bowel obstruction, enteritis, or colitis. Mild fecal loading suggesting constipation. APPENDIX: Unremarkable. PERITONEUM: Interval resolution of previously demonstrated mild ascites and diffuse anasarca. No free air. LYMPH NODES: No lymphadenopathy. REPRODUCTIVE: Uterus surgically absent. No adnexal abnormality. VASCULATURE: No abdominal aortic aneurysm. BONES: Multilevel mild spondylosis. No acute osseous abnormality. ABDOMINAL WALL: A stable small fat-containing umbilical hernia and an interval new small fat-containing supraumbilical hernia. IMPRESSION: Interval resolution of previously demonstrated mild ascites. Mild hepatomegaly with diffuse steatosis. Multiple stable simple hepatic cysts. Ectopic left pelvic kidney. Distended urinary bladder with an interval new right lateral wall diverticulum containing a calcific focus, likely representing mural calcification versus vesical calculus. A stable umbilical hernia and an interval new small supraumbilical hernia. Mild constipation. Interval resolution of prior bilateral pleural effusions and diffuse anasarca. Post-cholecystectomy and hysterectomy status. Recommendation: Ultrasound abdomen and pelvis for further characterization of bladder diverticulum and hepatic cysts. MRI abdomen may be considered for detailed hepatic and renal anatomical evaluation if clinically warranted. /[place] DICTATED BY: KYA VAUGHN Jr., MD DATE: 01/20/252325 ELECTRONICALLY SIGNED BY: KYA VAUGHN Jr., MD DATE: 01/20/252325 ED Course ED Course Orders Procedure Category Date Status Time Cbc With Differential LAB 01/20/25 Complete 20:37 Comprehensive LAB 01/20/25 Complete Metabolic Panel 20:37 Hcg,Quantitative LAB 01/20/25 Complete 20:37 Urinalysis Profile LAB 01/20/25 Logged 20:37 Ondansetron 4mg Inj PHA 01/20/25 Complete (Zofran 4mg Inj) 21:00 Creatine Kinase, Total LAB 01/20/25 Complete 20:37 Chest 1vw RAD 01/20/25 Resulted 20:37 Lipase LAB 01/20/25 Complete 20:37 Ct Abdomen/Pelvis W/O CT 01/20/25 Resulted Contrast 20:37 Morphine 4mg Syg PHA 01/20/25 Complete (Morphine 4mg Syg) 21:00 Acetaminophen 325 Tab PHA 01/20/25 Complete (Tylenol 325mg Tab 22:30 Hydromorphone 1 Mg PHA 01/20/25 Complete Inj (Dilaudid 1mg Inj 23:30 Current Medications Medications (Trade) Dose Ordered Sig/[place] Route PRN Reason Start Time Stop Time Status Last Admin Dose Admin Acetaminophen (TYLenol 325MG TAB) 650 mg ONCE ONCE PO 01/20/25 22:30 01/20/25 22:31 DC 01/20/25 22:21 Hydromorphone HCl (DiLAUDid 1MG INJ) 1 mg ONCE ONCE IVP 01/20/25 23:30 01/20/25 23:31 DC 01/20/25 23:19 Morphine Sulfate (morPHINE 4MG SYG) 2 mg ONCE ONCE IVP 01/20/25 21:00 01/20/25 21:01 DC Ondansetron HCl (zoFRAN 4MG INJ) 4 mg ONCE ONCE IVP 01/20/25 21:00 01/20/25 21:01 DC 01/20/25 21:58 Vital Signs Date Time Temp Pulse Resp B/P (MAP) Pulse Ox O2 Delivery O2 Flow Rate FiO2 01/20/25 20:20 98.1 79 17 118/73 98 Room Air* 0 21 01/20/25 20:10 98.8 75 20 122/73 98 Room Air We will perform diagnostic labs, advanced imaging and administer medications according to the patient's complaint. Once the results are available, will review and personally interpreted the labs to rule out any acute life- threatening emergency the trach require immediate intervention and treatment. I will then re-evaluate the patient after treatment and diagnostic exams have return to determine whether the patient requires any further testing, can safely be discharged home or need further admission to hospital for additional treatment and evaluation. Had a long discussion with the patient and spouse and patient is being followed by [facility] in [facility]. She has chronic pain syndrome followed by Dr. Ruiz-gets Dilaudid 4 mg p.o. daily PRN. I explained to them that the upper abdominal pain and xiphoid area pain likely is related to hiatal hernia however reduced gastric motility, colonic motility may also be contributing to the problem. They will follow up with the primary physician Medical Decision Making MDM Differential diagnosis: Gastritis, gastroparesis, dyspepsia, cholecystitis, constipation This is a 45-year-old female who presented to the emergency room with her spouse with complaints of increasing abdominal girth and epigastric pain with a pressure in her chest and she also reports itchy rash all over the body along with nausea. She denied any fevers or chills no vomitings or diarrhea. Patient had idiopathic ascites and multiple cysts in her liver and kidney inpatient had an extensive evaluation done over the past few years including at [facility]. Her autoimmune workup included C3-C4, WALDO, C Anca p-ANCA-all negative. Fungal- Blastomyces, Aspergillus negative, HIV and hepatitis B negative. EBV IgG was positive. Patient at 1 point had positive CA 125 and he was also referred to oncologist and her left ovary was removed in October 2021 which was negative for malignancy. 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 Temperature 98.7 pulse 75 respirations 20 blood pressure 122/73 with a pulse oximetry of 98% on room air Her chronic medical problems include functioning right kidney, left-sided pelvic kidney, hypothyroidism, polycystic hepatic and kidney disease, gastroesophageal reflux disease, chronic kidney disease, Charcot Kassie tooth disease, mitochondrial myopathy, chronic pain syndrome-on p.o. Dilaudid 9:15 p.m.-CBC is with a normal limits BNP 7 is still pending 9:30 p.m. BNP 7 is significant for a BUN and creatinine of 17 and 1.5 10:[address] scan of the abdomen and pelvis was reviewed-multiple abnormalities including cysts in the liver, pelvic kidney and a diverticulum in the bladder. No acute intra-abdominal pathology was noted. At this time patient does not have any acute urinary symptoms. 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 I also explained that there was no evidence of any ascites on the current CT Rationale: Tests considered and ordered secondary to shared decision making include: Previous outside records reviewed: Old ER visits. Risk of complication and/or morbidity or mortality of patient management: None Medications-Per medication reconciliation Need for hospitalization: Patient does not meet criteria for hospitalization. Need for emergency major/minor surgery: No There are no social concerns with this patient. Prescription drug management Prescriptions will include symptomatic care Patient's prior external medical records from other ER visits were reviewed by me as indicated. Prior testing and results from previous visits were reviewed. Prior tests were taken into account with medical decision making and resource utilization, independent historian/historians were used to obtain complete medical history. I independently interpreted the test that were performed, results were reviewed by me and considered findings on radiology if ordered. Medical management and examination interpretation discussions were had by me with other qualified healthcare professionals as indicated for the patient's care. 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 (5) Chronic pain syndrome (6) Opioid dependence (7) Hiatal hernia (8) Pelvic kidney DX & DISP Disposition: Discharge Departure Impression: Primary Impression: Abdominal pain Additional Impressions: Hiatal hernia, Chronic pain syndrome, Charcot Kassie Tooth muscular atrophy, Mitochondrial disease, Polycystic liver disease, Pelvic kidney, Opioid dependence Condition: Stable Additional Instructions: Patient and the caregiver have been informed of all the diagnostic tests and the imaging conducted during the today's visit to the emergency room and has verbalized understanding of the results I have personally reviewed and interpreted all diagnostic exams performed here in the ER today as well as the vital signs documented by the nursing staff. The patient is now being discharged to home and should follow up with the primary care physician or the specialist as directed by the ER staff. Referrals: SHRUTI QUINTEROS MD (PCP) JULIANA MONTEZ MD Jan 20, 2025 20:39
[2025-01-20 21:04] LABS: IMMATURE GRANULOCYTE ABSOLUTE 0.05 K/uL (0-1); NUCLEATED RED BLOOD CELLS 0.0 % (0.0-0.19); PLATELET COUNT (AUTO) 208 K/uL (130-400); RED BLOOD CELL COUNT(AUTO) 4.12 MIL/uL (4.00-5.50); RED CELL DISTRIBUTION WIDTH 13.5 % (11.0-15.5); WHITE BLOOD COUNT (AUTO) 7.2 K/uL (4.8-10.8)
[2025-01-20 21:14] LABS: CREATININE 1.5 mg/dL (0.5-1.0); GLOMERULAR FILTR. RATE CALC 43.0 mL/min (>90); GLUCOSE,RANDOM 115.0 mg/dL (70-105); SODIUM SERUM 143.0 mmol/L (136-145); UREA NITROGEN, BLOOD 17.0 mg/dL (7-18)
[2025-01-20 21:25] LABS: ASPARTATE AMINOTRANSFERASE 26.0 U/L (10-37); CREATINE KINASE, TOTAL 28.0 U/L (21-232); HCG,QUANTITATIVE 3.0 mIU/mL (0-5); TOTAL PROTEIN, SERUM 6.6 g/dL (6.0-8.3)
--- NOTE | 2025-01-20 22:26 | HMCIMG ---
EXAM: CT Abdomen and Pelvis Without IV contrast. CLINICAL HISTORY: Patient presents with abdominal distension and suspected ascites. TECHNIQUE: Axial computed tomography images of the abdomen and pelvis without intravenous contrast. CONTRAST: No IV contrast. COMPARISON: CT dated 11/04/2021. FINDINGS: LUNG BASES: Interval resolution of previously demonstrated bilateral pleural effusions. LIVER: Mild hepatomegaly with the right hepatic lobe measuring up to 18.5 cm in craniocaudal dimension. Features of hepatic steatosis. Multiple small hypodense lesions scattered throughout the hepatic parenchyma, likely representing simple hepatic cysts. GALLBLADDER AND BILE DUCTS: Gallbladder surgically absent. No biliary ductal dilatation. PANCREAS: Normal. SPLEEN: Normal. ADRENAL GLANDS: Normal. KIDNEYS, URETERS, AND BLADDER: Redemonstrated ectopic left pelvic kidney. No hydronephrosis or urinary calculi. Urinary bladder distended with an interval new 3.0 ??? 3.6 cm superior right lateral wall diverticulum containing a 0.4 cm calcific focus, likely representing mural calcification versus vesical calculus. STOMACH AND BOWEL: No evidence of bowel obstruction, enteritis, or colitis. Mild fecal loading suggesting constipation. APPENDIX: Unremarkable. PERITONEUM: Interval resolution of previously demonstrated mild ascites and diffuse anasarca. No free air. LYMPH NODES: No lymphadenopathy. REPRODUCTIVE: Uterus surgically absent. No adnexal abnormality. VASCULATURE: No abdominal aortic aneurysm. BONES: Multilevel mild spondylosis. No acute osseous abnormality. ABDOMINAL WALL: A stable small fat-containing umbilical hernia and an interval new small fat-containing supraumbilical hernia. IMPRESSION: Interval resolution of previously demonstrated mild ascites. Mild hepatomegaly with diffuse steatosis. Multiple stable simple hepatic cysts. Ectopic left pelvic kidney. Distended urinary bladder with an interval new right lateral wall diverticulum containing a calcific focus, likely representing mural calcification versus vesical calculus. A stable umbilical hernia and an interval new small supraumbilical hernia. Mild constipation. Interval resolution of prior bilateral pleural effusions and diffuse anasarca. Post-cholecystectomy and hysterectomy status. Recommendation: Ultrasound abdomen and pelvis for further characterization of bladder diverticulum and hepatic cysts. MRI abdomen may be considered for detailed hepatic and renal anatomical evaluation if clinically warranted. /[place]
--- NOTE | 2025-01-20 22:53 | HMCIMG ---
EXAM: CR Chest, 1 View. CLINICAL HISTORY: Ascites, chest pressure. Suspicion of pulmonary edema. COMPARISON: None provided. FINDINGS: LUNGS: The lungs show no infiltrate or other acute finding. PLEURAL SPACES: No pleural effusion or pneumothorax. MEDIASTINUM: Cardiac size and mediastinal contours are within normal limits. BONES: No acute osseous abnormality. IMPRESSION: No acute cardiopulmonary pathology is evident. /[place]
[2025-01-20 23:50] VITALS: BP 105/56; PULSE 62; RESP 16; TEMP 98.3; O2SAT 97
== END 2025-01-21 00:14 | disposition home or self-care (01) ==
LOC: EDH 20:05
DX: K44.9 Diaphragmatic hernia without obstruction or gangrene (principal); E88.40 Mitochondrial metabolism disorder, unspecified; G89.4 Chronic pain syndrome; F11.20 Opioid dependence, uncomplicated; Q44.6 Cystic disease of liver; G60.0 Hereditary motor and sensory neuropathy; R21 Rash and other nonspecific skin eruption; R19.7 Diarrhea, unspecified; M79.7 Fibromyalgia; Z79.899 Other long term (current) drug therapy; Z90.49 Acquired absence of other specified parts of digestive tract; Z90.710 Acquired absence of both cervix and uterus; Z98.890 Other specified postprocedural states
CPT/HCPCS: 36415; 71045; 74176; 80053; 82550; 83690; 84702; 85025; 96374; 96375; 99284; 99285; J1171; J2270; J2405

== ENCOUNTER 2025-02-16 19:32 | Inpatient (IN) | payer BC ==
[~2025-02-16] VITALS: Ht 162.6 cm; Wt 83.7 kg
[2025-02-16] MEDS: FAMOTIDINE 20MG VIAL IV ONE (20:19)
[2025-02-16 20:24] LABS: IMMATURE GRANULOCYTE ABSOLUTE 0.04 K/uL (0-1); NUCLEATED RED BLOOD CELLS 0.0 % (0.0-0.19); PLATELET COUNT (AUTO) 193 K/uL (130-400); RED BLOOD CELL COUNT(AUTO) 4.57 MIL/uL (4.00-5.50); RED CELL DISTRIBUTION WIDTH 12.7 % (11.0-15.5); WHITE BLOOD COUNT (AUTO) 6.8 K/uL (4.8-10.8)
--- NOTE | 2025-02-16 20:24 | EKG ---
[facility] Test Date: 2025-02-16 Test Time: 20:20:08 Pat Name: VAISHNAVI AGUSTIN Department: [facility] Room: ED Gender: F Transfer Professor: [id number] : 1980 Requested By: CRISTOPHER ARIAS Order Number: [id number] Reading MD: Melba Vargas Measurements Intervals [place] Rate: 79 P: 50 CO: 170 QRS: 37 QRSD: 86 T: 31 QT: 406 QTc: 467 Interpretive Statements Sinus rhythm Compared to ECG 07/16/2021 13:35:38 No significant changes Electronically Signed On 02-17-2025 12:28:06 HEAD KNITTING MACHINE FIXER by Melba Vargas Please click the below link to view image of tracing.
[2025-02-16 20:29] LABS: HCG,QUALITATIVE URINE NEGATIVE (NEGATIVE)
[2025-02-16 20:32] LABS: APPEARANCE,URINE CLEAR (CLEAR); GLUCOSE, URINE (UA) NEGATIVE (NEGATIVE); LEUKOCYTE ESTERASE ,URINE NEGATIVE Leu/uL (NEGATIVE); NITRATE,URINE NEGATIVE (NEGATIVE); OCCULT BLOOD,URINE NEGATIVE (NEGATIVE); SQUAMOUS EPITHELIAL CELL,UR RARE /HPF (0-2)
[2025-02-16 20:36] LABS: INR 0.98 (0.85-1.15)
[2025-02-16 20:42] LABS: ASPARTATE AMINOTRANSFERASE 22.0 U/L (10-37); CREATININE 1.7 mg/dL (0.5-1.0); GLOMERULAR FILTR. RATE CALC 37.0 mL/min (>90); GLUCOSE,RANDOM 96.0 mg/dL (70-105); SODIUM SERUM 137.0 mmol/L (136-145); TOTAL PROTEIN, SERUM 7.1 g/dL (6.0-8.3); UREA NITROGEN, BLOOD 20.0 mg/dL (7-18)
[2025-02-16] MEDS: 0.9%NACL 1000ML 1,000 ML IV ONE (20:44)
--- NOTE | 2025-02-16 23:04 | HMCIMG ---
EXAM: CT Abdomen and Pelvis Without IV contrast CLINICAL HISTORY: Abdominal pain TECHNIQUE: Axial computed tomography images of the abdomen and pelvis without intravenous contrast. COMPARISON: CT abdomen and pelvis dated 01/20/2025. FINDINGS: LUNG BASES: The lung bases appear clear. No pleural effusions are seen. LIVER: Enlarged in size, measuring 17 cm. Multiple well-defined hypodense foci with diffuse distribution in both lobes of the liver, the largest measuring 1.3 x 1 cm in the segment COLLEEN of the liver. GALLBLADDER AND BILE DUCTS: Post cholecystectomy status. No biliary ductal dilatation is evident. PANCREAS: Unremarkable. SPLEEN: Enlarged in size, measuring 12.5 cm. ADRENAL GLANDS: Unremarkable. KIDNEYS, URETERS, AND BLADDER: The left kidney is not visualized. Right Kidney: There is no hydronephrosis or hydroureter. No urinary calculi are seen. Diffuse thickening of the urinary bladder wall measuring 4-5 mm. STOMACH AND BOWEL: Unremarkable appearance of the stomach and bowel. No evidence of bowel obstruction. No evidence suggesting enteritis or colitis. APPENDIX: No evidence of acute appendicitis on CT examination. PERITONEUM: No free fluid. No free air. LYMPH NODES: No lymphadenopathy is evident. REPRODUCTIVE: Post hysterectomy status. 3 cm cystic structure in the left adnexa. VASCULATURE: No evidence of abdominal aortic aneurysm. BONES: No aggressive appearing osseous lesion. No acute osseous pathology evident. Umbilical hernia measuring 0.9 cm with herniation of omental fat. IMPRESSION: Hepatomegaly with multiple well-defined hypodense foci with diffuse distribution in both lobes of the liver. Likely cysts. Recommend a multiphase contrast-enhanced MRI of the liver for further characterization. Mild cystitis. Umbilical hernia. Splenomegaly. 3 cm cystic structure in the left adnexa.. Recommend ultrasound of the pelvis for further evaluation. Compared to the previous CT, there is complete interval improvement in the previously noted ascites and right renal pyelonephritis. Interval increase in the number of hepatic cysts. Left adnexal cyst is a new finding. /[place]
--- NOTE | 2025-02-16 23:17 | ERN ---
General Chief Complaint: Abdominal Pain Stated Complaint: C/O ABD PAIN W/PAIN WHEN VOIDING ONSET YESTERDAY Time Seen by MD: 19:34 History of Present Illness Initial Comments 45 y/o female came in for abdominal pain. Allergies: Coded Allergies: No Known Drug Allergies (Verified Allergy, Unknown, 08/30/13) morphine (Unverified Allergy, Unknown, 02/16/25) Home Meds Active Scripts Diazepam (Valium) 5 Mg Tablet, 5 MG PO BID, #20 TAB Prov:CHARU ANDRADE MD 09/02/21 Omeprazole (Omeprazole) 20 Mg Tablet.dr, 20 MG PO DAILY, #30 TAB Prov:BERNARD OBRIEN 07/16/21 Reported Medications [Belladonna/Opium] No Conflict Check, 1 SUPP MO QIDP PRN for ABDOMINAL PAIN 10/27/21 Cholecalciferol (Vitamin D3) 50,000 Units Cap, 52084 UNITS PO EVERY WEEK, CAP 10/27/21 Hydrocodone/Acetaminophen (Hydrocodon-Acetaminophn 10-325) 1 Each Tablet, 1 EACH PO BID PRN for ABDOMINAL PAIN, TAB 10/27/21 Folic Acid/Vitamin B Comp W-C (Nephro-Becky Tablet) 0.8 Mg Tablet, 0.8 MG PO AM, TAB 10/27/21 Thyroid,Pork (Economics Professor Thyroid) 90 Mg Tablet, 90 MG PO AM, TAB 10/27/21 Vibegron (Gemtesa) 75 Mg Tablet, 75 MG PO HS, TAB 10/27/21 Tizanidine HCl (Tizanidine HCl) 6 Mg Capsule, 6 MG PO TIDP PRN for MUSCLE SPASMS, CAP 07/20/21 Past Medical History Past Medical History: Renal Disese, Other Medical History Other: HAS ONLY RT SIDED KIDNEY Past Surgical History: Hysterectomy, Cholecystectomy, Surgical History Other: HERNIA REPAIR Family History Family History: Negative Social History Social History: Negative, Lives with family Female( History) History: Not Applicable ROS Dictation Abdominal pain Physical Exam General Appearance: (+) no apparent distress, (+) apparent distress Orientation: (+) alert, (+) oriented x 3 Respiratory: (+) chest non-tender, (+) lungs clear Heart: (+) regular, (+) no gallop Gastrointestinal: (+) soft, (+) non-tender, (+) no organomegaly, (+) bowel sound present Results Laboratory and Microbiology Lab and Micro Result Laboratory Tests Test 02/16/25 20:16 02/16/25 20:18 White Blood Count 6.8 K/uL (4.8-10.8) Red Blood Count 4.57 MIL/uL (4.00-5.50) Hemoglobin 13.1 g/dL (12.0-16.0) Hematocrit 39.4 % (36-48) Mean Corpuscular Volume 86.2 fL (79-99) Mean Corpuscular Hemoglobin 28.7 pg (27.0-33.0) Mean Corpuscular Hemoglobin Concent 33.2 g/dL (32.0-36.0) Red Cell Distribution Width 12.7 % (11.0-15.5) Platelet Count 193 K/uL (130-400) Mean Platelet Volume 10.6 fL (7.5-10.5) H Immature Granulocyte % (Auto) 0.6 % (0-1) Neutrophils (%) (Auto) 54.0 % (40.0-77.0) Lymphocytes (%) (Auto) 36.7 % (21.0-51.0) Monocytes (%) (Auto) 5.0 % (3.0-13.0) Eosinophils (%) (Auto) 2.8 % (0.0-8.0) Basophils (%) (Auto) 0.9 % (0.0-5.0) Neutrophils # (Auto) 3.7 K/uL (1.8-7.7) Lymphocytes # (Auto) 2.5 K/uL (1.0-4.8) Monocytes # (Auto) 0.3 K/uL (0.1-1.0) Eosinophils # (Auto) 0.19 K/uL (0.00-0.70) Basophils # (Auto) 0.06 K/uL (0.00-0.20) Absolute Immature Granulocyte (auto 0.04 K/uL (0-1) Nucleated Red Blood Cells 0.0 % (0.0-0.19) Prothrombin Time 10.4 SEC (9.6-11.6) Prothromb Time International Ratio 0.98 (0.85-1.15) Activated Partial Thromboplast Time 27.3 SEC (26.3-35.5) Sodium Level 137 mmol/L (136-145) Potassium Level 3.0 mmol/L (3.5-5.1) *L Chloride Level 99 mmol/L (101-111) L Carbon Dioxide Level 30 mmol/L (21-32) Blood Urea Nitrogen 20 mg/dL (7-18) H Creatinine 1.7 mg/dL (0.5-1.0) H Glomerular Filtration Rate Calc 37 mL/min (>90) Random Glucose 96 mg/dL (70-105) Lactic Acid Level 3.0 mmol/L (0.8-2.5) H Total Calcium 8.7 mg/dL (8.5-10.1) Total Bilirubin 0.3 mg/dL (0.2-1.0) Direct Bilirubin 0.1 mg/dL (0.0-0.3) Aspartate Amino Transf (AST/SGOT) 22 U/L (10-37) Alanine Aminotransferase (ALT/SGPT) 25 U/L (12-78) Alkaline Phosphatase 72 U/L (50-136) Troponin I High Sensitivity 6 ng/L (4-50) Total Protein 7.1 g/dL (6.0-8.3) Albumin 3.7 g/dL (3.5-5.0) Lipase 43 U/L (16-77) Urine Color COLORLESS (YELLOW) Urine Appearance CLEAR (CLEAR) Urine pH 5.5 (5.0-8.0) Urine Specific [place] 1.008 (1.001-1.031) Urine Protein NEGATIVE mg/dL (NEGATIVE) Urine Glucose (UA) NEGATIVE mg/dL (NEGATIVE) Urine Ketones NEGATIVE mg/dL (NEGATIVE) Urine Occult Blood NEGATIVE (NEGATIVE) Urine Nitrate NEGATIVE (NEGATIVE) Urine Bilirubin NEGATIVE mg/dL (NEGATIVE) Urine Urobilinogen 0.2 mg/dL (0.2-1.0) Urine Leukocyte Esterase NEGATIVE Patrick/uL Urine RBC 0-1 /HPF (0-1) Urine WBC 2-5 /HPF (0-1) H Urine Squamous Epithelial Cells RARE /HPF (0-2) Urine Bacteria RARE /HPF (None Seen) Urine HCG, Qualitative NEGATIVE (NEGATIVE) MDM MDM: Differential diagnosis: Rationale: Tests considered and ordered secondary to shared decision making include: labs, ECG and radiology Previous outside records reviewed: Old ER visits. Risk of complication and/or morbidity or mortality of patient management: None Medications-Per medication reconciliation Need for hospitalization: Patient does meet criteria for hospitalization. Need for emergency major/minor surgery: No There are no social concerns with this patient. Prescription drug management Prescriptions will include symptomatic care Patient's prior external medical records from other ER visits were reviewed by me as indicated. Prior testing and results from previous visits were reviewed. Prior tests were taken into account with medical decision making and resource utilization, independent historian/historians were used to obtain complete medical history. I independently interpreted the test that were performed, results were reviewed by me and considered findings on radiology if ordered. Medical management and examination interpretation discussions were had by me with other qualified healthcare professionals as indicated for the patient's care. ED Course Orders Procedure Category Date Status Time 12 Lead Ekg Tracing- EKG 02/16/25 Complete Technical 19:57 Cbc With Differential LAB 02/16/25 Complete 19:57 Basic Metabolic Panel LAB 02/16/25 Complete 19:57 Hepatic Function Panel LAB 02/16/25 Complete 19:57 Lactic Acid LAB 02/16/25 Complete 19:57 Lipase LAB 02/16/25 Complete 19:57 Pt And Ptt LAB 02/16/25 Complete 19:57 Troponin I High LAB 02/16/25 Complete Sensitivity 19:57 Urinalysis LAB 02/16/25 Complete W/Microscopic 19:57 ,Urine Test LAB 02/16/25 Complete 19:57 Ondansetron 4mg Inj PHA 02/16/25 Complete (Zofran 4mg Inj) 20:00 Famotidine 20mg Vial PHA 02/16/25 Complete (Pepcid 20mg Vial) 20:00 Morphine 2mg Syg PHA 02/16/25 Complete (Morphine 2mg Syg) 20:00 Morphine 4mg Syg PHA 02/16/25 Complete (Morphine 4mg Syg) 20:30 Hydromorphone 2mg PHA 02/16/25 Complete Vial (Dilaudid 2mg Inj 20:30 0.9%Nacl 1000ml (Ns PHA 02/16/25 Complete 1000ml) 21:00 Potassium Chloride PHA 02/16/25 In Process 10meq/100ml ([place] 21:30 Ct Abdomen/Pelvis W/O CT 02/16/25 Resulted Contrast 20:59 Current Medications Medications (Trade) Dose Ordered Sig/[place] Route PRN Reason Start Time Stop Time Status Last Admin Dose Admin Famotidine (Pepcid 20mg Vial) 20 mg ONCE ONCE IV 02/16/25 20:00 02/16/25 20:01 DC 02/16/25 20:19 Hydromorphone HCl (DiLAUDid 2MG INJ) 2 mg ONCE ONCE IVP 02/16/25 20:30 02/16/25 20:31 DC 02/16/25 20:35 Morphine Sulfate (morPHINE 2MG SYG) 2 mg ONCE ONCE IVP 02/16/25 20:00 02/16/25 20:01 DC Morphine Sulfate (morPHINE 4MG SYG) 4 mg ONCE ONCE IVP 02/16/25 20:30 02/16/25 20:17 DC Ondansetron HCl (zoFRAN 4MG INJ) 4 mg ONCE ONCE IVP 02/16/25 20:00 02/16/25 20:01 DC 02/16/25 20:19 Potassium Chloride 200 ml @ 100 mls/hr ONCE ONCE IV 02/16/25 21:30 02/16/25 23:29 02/16/25 22:34 Sodium Chloride 1,000 ml @ 0 mls/hr ONCE ONCE IV 02/16/25 21:00 02/16/25 21:01 DC 02/16/25 20:44 Vital Signs Date Time Temp Pulse Resp B/P (MAP) Pulse Ox O2 Delivery O2 Flow Rate FiO2 02/16/25 20:36 98.1 86 18 97/60 100 Room Air* 0 21 02/16/25 19:34 97.9 90 20 104/64 99 Room Air DX & DISP Disposition: Inpatient Departure Impression: Primary Impression: Abdominal pain Condition: Stable Referrals: SHRUTI QUINTEROS MD (PCP) CRISTOPHER ARIAS MD Feb 16, 2025 23:16
--- NOTE | 2025-02-17 00:35 | HP ---
[facility] HISTORY & PHYSICAL Date Patient Seen: Feb 17, 2025 Time of Visit: 00:33 Supervising Physician: Dr. Horace Xiong Primary Care Physician: Dr Castanon Outpatient Specialists: [ ] Inpatient Consults: [ ] PROBLEM LIST: Acute kidney injury, POA Hypokalemia, POA Abdominal Pain, POA Adnexal Cyst, Left 3 mm Splenomegaly, POA History of Urinary retention History of polycystic kidney/liver disease History of Charcot Kassie Tooth Disease PLAN: Admit to medical-surgical floor Continue IV fluid Avoid nephrotoxic agents Renally dose all medications Straight catheter as needed Keep SBP less than 160 Multimodal pain relief Aspiration precautions Zofran for vomiting Facilitate ultrasound of the pelvis Heart healthy diet Keep head of bed above 30 degree Bilateral SCDs CBC, CMP, magnesium level daily HPI: 45-year-old female with past medical history of polycystic kidney/liver disease, Charcot Kassie tooth disease (recently diagnosed in [facility]) who presented to ED with complaint of left lower abdominal sharp pain with associated nausea and vomiting and found to have hypokalemia, and acute kidney injury. Patient was seen and examined in ED with present at bedside. According to her her symptoms started yesterday, mostly on the left, with episodic nausea and vomiting. Her symptoms did not improve prompting ER visit. In ED stat CBC was done showed no anemia or infection, chemistry showed potassium of 3.0, and and creatinine level of 1.7, initial lactic acid of 3.0 (now at 1.7), UA showed no leuko esterase or nitrites. CT of the abdomen was done and showed hepatomegaly with multiple well-defined hypodense foci with diffuse distribution in both lobes of the liver, likely cysts, there is also splenomegaly, and 3 mm left adnexal cyst (new findings) In ED patient was initiated on IV fluids, and electrolyte replacement. At present patient is currently hemodynamically stable, on room air with appropriate oxygen saturation, denies any headache, chest pain, shortness of breath, fever, or flu-like symptoms. But still complains of left-sided abdominal. No history of smoking, alcohol intake, or illicit drug use. PAST MEDICAL HX: see above PAST SURGICAL HX: noncontributory SOCIAL HISTORY: No tobacco, ETOH, or illicit drug use Coded Allergies: No Known Drug Allergies (Verified Allergy, Unknown, 08/30/13) morphine (Unverified Allergy, Unknown, 02/16/25) REVIEW OF SYSTEMS: 12 point ROS reviewed with patient. Pertinent positives mentioned above. Otherwise negative. PHYSICAL EXAM: GENERAL: alert, weak, awake oriented x 3 HEENT: EOMI, Sclera non icteric, moist mucosa NECK: Supple, no JVD, trachea midline LUNGS: Clear breath sounds bilaterally. No wheezes HEART: Regular rate and rhythm. Normal S1 and S2, without murmurs ABD: Abdomen soft Bowel sounds present EXT: No clubbing cyanosis or edema NEURO: Alert and oriented to person, follows commands Vital Signs (last 8hr) Date Time Temp Pulse Resp B/P (MAP) Pulse Ox O2 Delivery O2 Flow Rate FiO2 02/16/25 20:36 98.1 86 18 97/60 100 Room Air* 0 21 02/16/25 19:34 97.9 90 20 104/64 99 Room Air LABS: Hematology Labs: Test 02/16/25 20:16 Range/Units White Blood Count 6.8 4.8-10.8 K/uL Red Blood Count 4.57 4.00-5.50 MIL/uL Hemoglobin 13.1 12.0-16.0 g/dL Hematocrit 39.4 36-48 % Mean Corpuscular Volume 86.2 79-99 fL Mean Corpuscular Hemoglobin 28.7 27.0-33.0 pg Mean Corpuscular Hemoglobin Concent 33.2 32.0-36.0 g/dL Red Cell Distribution Width 12.7 11.0-15.5 % Platelet Count 193 130-400 K/uL Mean Platelet Volume 10.6 H 7.5-10.5 fL Immature Granulocyte % (Auto) 0.6 0-1 % Neutrophils (%) (Auto) 54.0 40.0-77.0 % Lymphocytes (%) (Auto) 36.7 21.0-51.0 % Monocytes (%) (Auto) 5.0 3.0-13.0 % Eosinophils (%) (Auto) 2.8 0.0-8.0 % Basophils (%) (Auto) 0.9 0.0-5.0 % Neutrophils # (Auto) 3.7 1.8-7.7 K/uL Lymphocytes # (Auto) 2.5 1.0-4.8 K/uL Monocytes # (Auto) 0.3 0.1-1.0 K/uL Eosinophils # (Auto) 0.19 0.00-0.70 K/uL Basophils # (Auto) 0.06 0.00-0.20 K/uL Absolute Immature Granulocyte (auto 0.04 0-1 K/uL Nucleated Red Blood Cells 0.0 0.0-0.19 % Chemistry Labs: Test 02/16/25 23:38 02/16/25 20:16 Range/Units Lactic Acid Level 1.9 0.8-2.5 mmol/L Sodium Level 137 136-145 mmol/L Potassium Level 3.0 *L 3.5-5.1 mmol/L Chloride Level 99 L 101-111 mmol/L Carbon Dioxide Level 30 21-32 mmol/L Blood Urea Nitrogen 20 H 7-18 mg/dL Creatinine 1.7 H 0.5-1.0 mg/dL Glomerular Filtration Rate Calc 37 >90 mL/min Random Glucose 96 70-105 mg/dL Total Calcium 8.7 8.5-10.1 mg/dL Total Bilirubin 0.3 0.2-1.0 mg/dL Direct Bilirubin 0.1 0.0-0.3 mg/dL Aspartate Amino Transf (AST/SGOT) 22 10-37 U/L Alanine Aminotransferase (ALT/SGPT) 25 12-78 U/L Alkaline Phosphatase 72 50-136 U/L Troponin I High Sensitivity 6 4-50 ng/L Total Protein 7.1 6.0-8.3 g/dL Albumin 3.7 3.5-5.0 g/dL Lipase 43 16-77 U/L Coagulation Labs: Test 02/16/25 20:16 Range/Units Prothrombin Time 10.4 9.6-11.6 SEC Prothromb Time International Ratio 0.98 0.85-1.15 Activated Partial Thromboplast Time 27.3 26.3-35.5 SEC DIAGNOSTICS / RADIOLOGY RESULTS: EXAM: CT Abdomen and Pelvis Without IV contrast CLINICAL HISTORY: Abdominal pain TECHNIQUE: Axial computed tomography images of the abdomen and pelvis without intravenous contrast. COMPARISON: CT abdomen and pelvis dated 01/20/2025. FINDINGS: LUNG BASES: The lung bases appear clear. No pleural effusions are seen. LIVER: Enlarged in size, measuring 17 cm. Multiple well-defined hypodense foci with diffuse distribution in both lobes of the liver, the largest measuring 1.3 x 1 cm in the segment COLLEEN of the liver. GALLBLADDER AND BILE DUCTS: Post cholecystectomy status. No biliary ductal dilatation is evident. PANCREAS: Unremarkable. SPLEEN: Enlarged in size, measuring 12.5 cm. ADRENAL GLANDS: Unremarkable. KIDNEYS, URETERS, AND BLADDER: The left kidney is not visualized. Right Kidney: There is no hydronephrosis or hydroureter. No urinary calculi are seen. Diffuse thickening of the urinary bladder wall measuring 4-5 mm. STOMACH AND BOWEL: Unremarkable appearance of the stomach and bowel. No evidence of bowel obstruction. No evidence suggesting enteritis or colitis. APPENDIX: No evidence of acute appendicitis on CT examination. PERITONEUM: No free fluid. No free air. LYMPH NODES: No lymphadenopathy is evident. REPRODUCTIVE: Post hysterectomy status. 3 cm cystic structure in the left adnexa. VASCULATURE: No evidence of abdominal aortic aneurysm. BONES: No aggressive appearing osseous lesion. No acute osseous pathology evident. Umbilical hernia measuring 0.9 cm with herniation of omental fat. IMPRESSION: Hepatomegaly with multiple well-defined hypodense foci with diffuse distribution in both lobes of the liver. Likely cysts. Recommend a multiphase contrast-enhanced MRI of the liver for further characterization. Mild cystitis. Umbilical hernia. Splenomegaly. 3 cm cystic structure in the left adnexa.. Recommend ultrasound of the pelvis for further evaluation. Compared to the previous CT, there is complete interval improvement in the previously noted ascites and right renal pyelonephritis. Interval increase in the number of hepatic cysts. Left adnexal cyst is a new finding. PLAN NEURO: Minimize central acting medications as possible. Maintain fall precautions, adequate lighting during the day PULMONARY: Supplemental 02 as needed. Maintain aspiration precautions at all times CARDIOVASCULAR: Follow hemodynamics. Vital signs per facility protocol GI & NUTRITION: Continue with nutritional support. Continue stool softeners and laxatives as needed. KIDNEYS & ELECTROLYTES: Strict monitoring of intake, output and overall fluid balance. Avoid nephrotoxic medications to the extent possible. Medications to be dosed according to renal function. Monitor electrolytes and replace as needed ENDOCRINE: Maintain blood glucose between 100-180 at all times. Hypoglycemia protocol in place INFECTIOUS DISEASE: Trend temperature, WBC and procalcitonin level Follow cultures, deescalate antibiotics as soon as possible. Panculture if new onset fever ONCOLOGY/HEMATOLOGY/COAGULATION: Monitor for s/s of bleeding Monitor hemoglobin, coagulation studies as needed SKIN: Pressure ulcer prevention per facility protocol Specialty mattress ORTHO/REHAB: Continue PT/OT Prophylaxis: Continue GI and DVT prophylaxis Code Status: Full Resuscitation Disposition: TBD Supervising physician: [facility] Feb 17, 2025 00:35
--- NOTE | 2025-02-17 00:38 | NUR ---
NONOG BODY FITTER WITH BENCHMARK AT BEDSIDE AT THIS TIME
[2025-02-17] MEDS: LACTATED RINGERS 1000ML 1,000 ML IV SCH (00:53)
--- NOTE | 2025-02-17 10:20 | PN ---
[facility] PROGRESS NOTE Date Patient Seen: Feb 17, 2025 Time of Visit: 10:14 Supervising Physician: [Dr Gould Primary Care Physician: Dr Castanon Outpatient Specialists: [Dr Racheal Cardenas ([facility]) Inpatient Consults: [ ] PROBLEM LIST: Acute on chronic kidney injury, ST 3B GFR 37 ml/minPOA Hypokalemia, POA Abdominal Pain, POA Adnexal Cyst, Left 3 mm Splenomegaly, POA History of Urinary retention History of polycystic kidney/liver disease History of Charcot Kassie Tooth Disease PLAN: Supplemental oxygen as needed Monitor renal function closely Continue IV fluids Repeat a.m. labs for today Avoid nephrotoxins as possible Consult Nephrology Pending pelvic ultrasound results Repeat a.m. 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 Patient was seen and examined in ED with present at bedside. According to her her symptoms started yesterday, mostly on the left, with episodic nausea and vomiting. Her symptoms did not improve prompting ER visit. In ED stat CBC was done showed no anemia or infection, chemistry showed potassium of 3.0, and and creatinine level of 1.7, initial lactic acid of 3.0 (now at 1.7), UA showed no leuko esterase or nitrites. CT of the abdomen was done and showed hepatomegaly with multiple well-defined hypodense foci with diffuse distribution in both lobes of the liver, likely cysts, there is also splenomegaly, and 3 mm left adnexal cyst (new findings) In ED patient was initiated on IV fluids, and electrolyte replacement. At present patient is currently hemodynamically stable, on room air with appropriate oxygen saturation, denies any headache, chest pain, shortness of breath, fever, or flu-like symptoms. But still complains of left-sided abdominal. No history of smoking, alcohol intake, or illicit drug use. 02/17 -patient is seen and evaluated in the ED. Patient is sitting up in his stretcher with no signs of acute distress. Patient does continue to complain of diffuse abdominal pain times4 quadrants. Patient reports she has being followed by Nephrology in the [facility] secondary to her polycystic kidney disease. Patient has been treated with IV fluids overnight. No labs we are available for review this morning. We will request some labs. Patient reports she was previously being follow up by Dr. Gould and would like for him to be consulted given her PEÑA. Patient is currently on room air and denies chest discomfort, chest pain or dyspnea. Vital signs are stable. We are still pending report of the pelvic ultrasound. We will continue antiemetics as needed for nausea. We will follow closely. REVIEW OF SYSTEMS: 12 point ROS reviewed with patient. Pertinent positives mentioned above. Otherwise negative. PHYSICAL EXAM: GENERAL: alert, weak, awake oriented x 3 HEENT: EOMI, Sclera non icteric, moist mucosa NECK: Supple, no JVD, trachea midline LUNGS: Clear breath sounds bilaterally. No wheezes HEART: Regular rate and rhythm. Normal S1 and S2, without murmurs ABD: Abdomen soft Bowel sounds present EXT: No clubbing cyanosis or edema NEURO: Alert and oriented to person, follows commands Vital Signs (last 8hr) Date Time Temp Pulse Resp B/P (MAP) Pulse Ox O2 Delivery O2 Flow Rate FiO2 02/17/25 09:30 97.5 83 16 110/68 100 Room Air* 0 21 02/17/25 07:15 97.5 89 11 109/65 96 Room Air* 0 21 02/17/25 06:30 97.9 74 14 108/64 97 Room Air* 0 21 02/17/25 04:09 67 12 119/50 98 Room Air* 0 21 02/17/25 02:56 78 14 107/53 97 Room Air* 0 21 LABS: Hematology Labs: Test 02/16/25 20:16 Range/Units White Blood Count 6.8 4.8-10.8 K/uL Red Blood Count 4.57 4.00-5.50 MIL/uL Hemoglobin 13.1 12.0-16.0 g/dL Hematocrit 39.4 36-48 % Mean Corpuscular Volume 86.2 79-99 fL Mean Corpuscular Hemoglobin 28.7 27.0-33.0 pg Mean Corpuscular Hemoglobin Concent 33.2 32.0-36.0 g/dL Red Cell Distribution Width 12.7 11.0-15.5 % Platelet Count 193 130-400 K/uL Mean Platelet Volume 10.6 H 7.5-10.5 fL Immature Granulocyte % (Auto) 0.6 0-1 % Neutrophils (%) (Auto) 54.0 40.0-77.0 % Lymphocytes (%) (Auto) 36.7 21.0-51.0 % Monocytes (%) (Auto) 5.0 3.0-13.0 % Eosinophils (%) (Auto) 2.8 0.0-8.0 % Basophils (%) (Auto) 0.9 0.0-5.0 % Neutrophils # (Auto) 3.7 1.8-7.7 K/uL Lymphocytes # (Auto) 2.5 1.0-4.8 K/uL Monocytes # (Auto) 0.3 0.1-1.0 K/uL Eosinophils # (Auto) 0.19 0.00-0.70 K/uL Basophils # (Auto) 0.06 0.00-0.20 K/uL Absolute Immature Granulocyte (auto 0.04 0-1 K/uL Nucleated Red Blood Cells 0.0 0.0-0.19 % Chemistry Labs: Test 02/17/25 08:57 02/16/25 23:38 02/16/25 20:16 Range/Units Whole Blood Glucose 137 H 70-110 MG/DL Lactic Acid Level 1.9 0.8-2.5 mmol/L Sodium Level 137 136-145 mmol/L Potassium Level 3.0 *L 3.5-5.1 mmol/L Chloride Level 99 L 101-111 mmol/L Carbon Dioxide Level 30 21-32 mmol/L Blood Urea Nitrogen 20 H 7-18 mg/dL Creatinine 1.7 H 0.5-1.0 mg/dL Glomerular Filtration Rate Calc 37 >90 mL/min Random Glucose 96 70-105 mg/dL Total Calcium 8.7 8.5-10.1 mg/dL Total Bilirubin 0.3 0.2-1.0 mg/dL Direct Bilirubin 0.1 0.0-0.3 mg/dL Aspartate Amino Transf (AST/SGOT) 22 10-37 U/L Alanine Aminotransferase (ALT/SGPT) 25 12-78 U/L Alkaline Phosphatase 72 50-136 U/L Troponin I High Sensitivity 6 4-50 ng/L Total Protein 7.1 6.0-8.3 g/dL Albumin 3.7 3.5-5.0 g/dL Lipase 43 16-77 U/L Coagulation Labs: Test 02/16/25 20:16 Range/Units Prothrombin Time 10.4 9.6-11.6 SEC Prothromb Time International Ratio 0.98 0.85-1.15 Activated Partial Thromboplast Time 27.3 26.3-35.5 SEC DIAGNOSTICS / RADIOLOGY RESULTS: PATIENT: VAISHNAVI AGUSTIN MR#: [id number] : 1980 SEX: F AGE: 45 LOCATION: [facility] ORDER 00 STATUS: REG ER REPORT#: [id number] SERVICE 58 REASON: Abdominal pain ORDERING PHYSICIAN: CRISTOPHER ARIAS MD PROCEDURE: ABD PEL WO - CT ABDOMEN/PELVIS W/O CONTRAST EXAM: CT Abdomen and Pelvis Without IV contrast CLINICAL HISTORY: Abdominal pain TECHNIQUE: Axial computed tomography images of the abdomen and pelvis without intravenous contrast. COMPARISON: CT abdomen and pelvis dated 01/20/2025. FINDINGS: LUNG BASES: The lung bases appear clear. No pleural effusions are seen. LIVER: Enlarged in size, measuring 17 cm. Multiple well-defined hypodense foci with diffuse distribution in both lobes of the liver, the largest measuring 1.3 x 1 cm in the segment COLLEEN of the liver. GALLBLADDER AND BILE DUCTS: Post cholecystectomy status. No biliary ductal dilatation is evident. PANCREAS: Unremarkable. SPLEEN: Enlarged in size, measuring 12.5 cm. ADRENAL GLANDS: Unremarkable. KIDNEYS, URETERS, AND BLADDER: The left kidney is not visualized. Right Kidney: There is no hydronephrosis or hydroureter. No urinary calculi are seen. Diffuse thickening of the urinary bladder wall measuring 4-5 mm. STOMACH AND BOWEL: Unremarkable appearance of the stomach and bowel. No evidence of bowel obstruction. No evidence suggesting enteritis or colitis. APPENDIX: No evidence of acute appendicitis on CT examination. PERITONEUM: No free fluid. No free air. LYMPH NODES: No lymphadenopathy is evident. REPRODUCTIVE: Post hysterectomy status. 3 cm cystic structure in the left adnexa. VASCULATURE: No evidence of abdominal aortic aneurysm. BONES: No aggressive appearing osseous lesion. No acute osseous pathology evident. Umbilical hernia measuring 0.9 cm with herniation of omental fat. IMPRESSION: Hepatomegaly with multiple well-defined hypodense foci with diffuse distribution in both lobes of the liver. Likely cysts. Recommend a multiphase contrast-enhanced MRI of the liver for further characterization. Mild cystitis. Umbilical hernia. Splenomegaly. 3 cm cystic structure in the left adnexa.. Recommend ultrasound of the pelvis for further evaluation. Compared to the previous CT, there is complete interval improvement in the previously noted ascites and right renal pyelonephritis. Interval increase in the number of hepatic cysts. Left adnexal cyst is a new finding. /[place] DICTATED BY: KYA VAUGHN Jr., MD DATE: 02/17/25 0003 ELECTRONICALLY SIGNED BY: KYA VAUGHN Jr., MD DATE: 02/17/25 0003 PLAN NEURO: Minimize central acting medications as possible. Maintain fall precautions, adequate lighting during the day PULMONARY: Supplemental 02 as needed. Maintain aspiration precautions at all times CARDIOVASCULAR: Follow hemodynamics. Vital signs per facility protocol GI & NUTRITION: Continue with nutritional support. Continue stool softeners and laxatives as needed. KIDNEYS & ELECTROLYTES: Strict monitoring of intake, output and overall fluid balance. Avoid nephrotoxic medications to the extent possible. Medications to be dosed according to renal function. Monitor electrolytes and replace as needed ENDOCRINE: Maintain blood glucose between 100-180 at all times. Hypoglycemia protocol in place INFECTIOUS DISEASE: Trend temperature, WBC and procalcitonin level Follow cultures, deescalate antibiotics as soon as possible. Panculture if new onset fever ONCOLOGY/HEMATOLOGY/COAGULATION: Monitor for s/s of bleeding Monitor hemoglobin, coagulation studies as needed SKIN: Pressure ulcer prevention per facility protocol Specialty mattress ORTHO/REHAB: Continue PT/OT Prophylaxis: Continue GI and DVT prophylaxis Code Status: Full Resuscitation Disposition: Home once medically stable for discharge ATTESTATION BY PHYSICIAN I attest that I reviewed and discussed the case with the Physician Pig Machine Crane Operator as well as agree with the Physician Pig Machine Crane Operator's findings, plans of care, and documentation above. Dash Monsivais MD, ECTOR N FNP Feb 17, 2025 10:19
[2025-02-17 10:26] LABS: NUCLEATED RED BLOOD CELLS 0.0 % (0.0-0.19); PLATELET COUNT (AUTO) 176.0 K/uL (130-400); RED BLOOD CELL COUNT(AUTO) 4.07 MIL/uL (4.00-5.50); RED CELL DISTRIBUTION WIDTH 12.7 % (11.0-15.5); WHITE BLOOD COUNT (AUTO) 5.5 K/uL (4.8-10.8)
[2025-02-17 10:32] LABS: CREATININE 1.3 mg/dL (0.5-1.0); GLOMERULAR FILTR. RATE CALC 51.0 mL/min (>90); GLUCOSE,RANDOM 121.0 mg/dL (70-105); SODIUM SERUM 140.0 mmol/L (136-145); UREA NITROGEN, BLOOD 17.0 mg/dL (7-18)
--- NOTE | 2025-02-17 11:14 | NUR ---
DCP:HOME Pt states that she is currently living with her Ahsan Jeffery 78 and her 3 kids. Pt states that she uses a wheelchair, cane, and shower chair at home. pt denies having any home health or provider services. Pt states that there are times that she requires assistance with ADLs and her daughter is the one to assist. PCP is Dr. Tyrel Castanon and uses [facility] for any RX needs. At DC pt will want to go home and family can assist with transportation.
--- NOTE | 2025-02-17 14:07 | NUR ---
DR. LOZANO AT BEDSIDE
--- NOTE | 2025-02-17 14:49 | CONS ---
NEPHROLOGY CONSULTATION NOTE Date/Time Patient Seen: Feb 17, 2025 Reason for Consultation: Renal failure HISTORY OF PRESENT ILLNESS: This is a 45-year-old female with past medical history of polycystic kidney/liver disease, She presented to ED with complaint of left lower abdominal sharp pain with associated nausea and vomiting and found to have hypokalemia, and acute kidney injury. She was noted with elevated BUN/creatinine. We are consulted for renal failure Renal function remains elevated Electrolytes are noted, replacement has been ordered Pending pelvic ultrasound. CT of the abdomen was noted She was seen in the emergency room, in no acute distress Family at the bedside Prognosis remains guarded REVIEW OF SYSTEMS: GENERAL: Positive for lower abdominal pain, nausea and vomiting NEUROLOGIC: Negative for any blurry vision, blind spots, double vision, facial asymmetry, dysphagia, dysarthria, hemiparesis, hemisensory deficits, vertigo, ataxia. HEENT: Negative for any head trauma, neck trauma, neck stiffness, photophobia, phonophobia, sinusitis, rhinitis. CARDIAC: Negative for any chest pain, dyspnea on exertion, paroxysmal nocturnal dyspnea, peripheral edema. PULMONARY: Negative for any shortness of breath, wheezing, COPD, or TB exposure. GASTROINTESTINAL: Negative for any abdominal pain, nausea, vomiting, bright red blood per rectum, melena. GENITOURINARY: Negative for any dysuria, hematuria, incontinence. INTEGUMENTARY: Negative for any rashes, cuts, insect bites. RHEUMATOLOGIC: Negative for any joint pains, photosensitive rashes, history of vasculitis or kidney problems. HEMATOLOGIC: Negative for any abnormal bruising, frequent infections or bleeding. PAST MEDICAL HISTORY: Polycystic kidney disease PAST SURGICAL HISTORY: Hysterectomy, cholecystectomy, PAST SOCIAL HISTORY: Noncontributory FAMILY HISTORY: Noncontributory PHYSICAL EXAM: GENERAL: Alert and oriented x 3. No acute distress. Well-nourished. EYES: EOMI. Anicteric. HENT: Moist mucous membranes. No scleral icterus. No cervical lymphadenopathy. LUNGS: Clear to auscultation bilaterally. No accessory muscle use. CARDIOVASCULAR: Regular rate and rhythm. No murmur. No JVD. ABDOMEN: Soft, non-tender and non-distended. No palpable masses. EXTREMITIES: No edema. Non-tender. SKIN: No rashes or lesions. Warm. NEUROLOGIC: No focal neurological deficits. CN II-XII grossly intact, but not individually tested. PSYCHIATRIC: Cooperative. Appropriate mood and affect. MEDICATIONS: [ ] Current Medications Medications (Trade) Dose Ordered Sig/[place] Route PRN Reason Start Time Stop Time Status Last Admin Dose Admin Acetaminophen (TYLenol 325MG TAB) 650 mg Q6H PRN PO FEVER/MILD PAIN LEVEL 1-3 02/17/25 00:30 03/19/25 00:29 Acetaminophen (TYLenol 650MG SUPPOSITORY) 650 mg Q6H PRN RC FEVER / MILD PAIN 1-3 IF NPO 02/17/25 00:30 03/19/25 00:29 Hydralazine HCl (APRESOLine 20MG INJ) 10 mg Q6H PRN IV SBP GREATER THAN 180 02/17/25 00:30 02/17/25 00:52 DC Hydromorphone HCl (DiLAUDid 0.5MG INJ) 0.2 mg Q4H PRN IVP SEVERE PAIN (7-10) 02/17/25 01:00 02/22/25 00:59 02/17/25 11:59 0.2 MG Insulin Human Regular (humuLIN R 100 UNIT/ML 3ML) INSULIN SLIDING SCAL... ACHS SQ 02/17/25 07:30 03/19/25 07:29 Labetalol HCl (TRANdate 20MG SYG) 10 mg Q2H PRN IV SBP GREATER THAN 180 02/17/25 00:30 03/19/25 00:29 Lactated Ringer's 1,000 ml @ 125 mls/hr Q8H IV 02/17/25 00:30 03/19/25 00:29 02/17/25 09:07 125 MLS/HR Magnesium Sulfate 50 ml @ 0 mls/hr PROTOCOL PRN IV protocol 02/17/25 00:30 03/19/25 00:29 Ondansetron HCl (zoFRAN 4MG INJ) 4 mg Q6H PRN IVP NAUSEA/VOMITING 02/17/25 00:30 03/19/25 00:29 02/17/25 12:02 4 MG Polyethylene Glycol (MIRalax 3350 17 GM POWD.PACK) 17 gm DAILY PO 02/17/25 09:00 03/19/25 08:59 02/17/25 09:04 17 GM Potassium Chloride 100 ml @ 50 mls/hr AD PRN IV POTASSIUM PROTOCOL 02/17/25 00:30 03/19/25 00:29 Vital Signs (last 8hr) Date Time Temp Pulse Resp B/P (MAP) Pulse Ox O2 Delivery O2 Flow Rate FiO2 02/17/25 09:30 97.5 83 16 110/68 100 Room Air* 0 21 02/17/25 07:15 97.5 89 11 109/65 96 Room Air* 0 21 DIAGNOSTICS / RADIOLOGY: [place] [address] [place] [id number] IMAGING REPORT Signed PATIENT: VAISHNAVI AGUSTIN MR#: [id number] : 1980 SEX: F AGE: 45 LOCATION: [facility] ORDER 00 STATUS: REG ER REPORT#: [id number] SERVICE 58 REASON: Abdominal pain ORDERING PHYSICIAN: CRISTOPHER ARIAS MD PROCEDURE: ABD PEL WO - CT ABDOMEN/PELVIS W/O CONTRAST EXAM: CT Abdomen and Pelvis Without IV contrast CLINICAL HISTORY: Abdominal pain TECHNIQUE: Axial computed tomography images of the abdomen and pelvis without intravenous contrast. COMPARISON: CT abdomen and pelvis dated 01/20/2025. FINDINGS: LUNG BASES: The lung bases appear clear. No pleural effusions are seen. LIVER: Enlarged in size, measuring 17 cm. Multiple well-defined hypodense foci with diffuse distribution in both lobes of the liver, the largest measuring 1.3 x 1 cm in the segment COLLEEN of the liver. GALLBLADDER AND BILE DUCTS: Post cholecystectomy status. No biliary ductal dilatation is evident. PANCREAS: Unremarkable. SPLEEN: Enlarged in size, measuring 12.5 cm. ADRENAL GLANDS: Unremarkable. KIDNEYS, URETERS, AND BLADDER: The left kidney is not visualized. Right Kidney: There is no hydronephrosis or hydroureter. No urinary calculi are seen. Diffuse thickening of the urinary bladder wall measuring 4-5 mm. STOMACH AND BOWEL: Unremarkable appearance of the stomach and bowel. No evidence of bowel obstruction. No evidence suggesting enteritis or colitis. APPENDIX: No evidence of acute appendicitis on CT examination. PERITONEUM: No free fluid. No free air. LYMPH NODES: No lymphadenopathy is evident. REPRODUCTIVE: Post hysterectomy status. 3 cm cystic structure in the left adnexa. VASCULATURE: No evidence of abdominal aortic aneurysm. BONES: No aggressive appearing osseous lesion. No acute osseous pathology evident. Umbilical hernia measuring 0.9 cm with herniation of omental fat. IMPRESSION: Hepatomegaly with multiple well-defined hypodense foci with diffuse distribution in both lobes of the liver. Likely cysts. Recommend a multiphase contrast-enhanced MRI of the liver for further characterization. Mild cystitis. Umbilical hernia. Splenomegaly. 3 cm cystic structure in the left adnexa.. Recommend ultrasound of the pelvis for further evaluation. Compared to the previous CT, there is complete interval improvement in the previously noted ascites and right renal pyelonephritis. Interval increase in the number of hepatic cysts. Left adnexal cyst is a new finding. /[place] DICTATED BY: KYA VAUGHN Jr., MD DATE: 02/17/25 0003 ELECTRONICALLY SIGNED BY: KYA VAUGHN Jr., MD DATE: 02/17/25 0003 LABORATORY: [ ] Hematology Labs: Test 02/17/25 10:19 02/16/25 20:16 Range/Units White Blood Count 5.5 4.8-10.8 K/uL Red Blood Count 4.07 4.00-5.50 MIL/uL Hemoglobin 11.7 L 12.0-16.0 g/dL Hematocrit 35.2 L 36-48 % Mean Corpuscular Volume 86.5 79-99 fL Mean Corpuscular Hemoglobin 28.7 27.0-33.0 pg Mean Corpuscular Hemoglobin Concent 33.2 32.0-36.0 g/dL Red Cell Distribution Width 12.7 11.0-15.5 % Platelet Count 176 130-400 K/uL Mean Platelet Volume 10.6 H 7.5-10.5 fL Nucleated Red Blood Cells 0.0 0.0-0.19 % Immature Granulocyte % (Auto) 0.6 0-1 % Neutrophils (%) (Auto) 54.0 40.0-77.0 % Lymphocytes (%) (Auto) 36.7 21.0-51.0 % Monocytes (%) (Auto) 5.0 3.0-13.0 % Eosinophils (%) (Auto) 2.8 0.0-8.0 % Basophils (%) (Auto) 0.9 0.0-5.0 % Neutrophils # (Auto) 3.7 1.8-7.7 K/uL Lymphocytes # (Auto) 2.5 1.0-4.8 K/uL Monocytes # (Auto) 0.3 0.1-1.0 K/uL Eosinophils # (Auto) 0.19 0.00-0.70 K/uL Basophils # (Auto) 0.06 0.00-0.20 K/uL Absolute Immature Granulocyte (auto 0.04 0-1 K/uL Chemistry Labs: Test 02/17/25 10:19 02/17/25 08:57 02/16/25 23:38 02/16/25 20:16 Range/Units Sodium Level 140 136-145 mmol/L Potassium Level 3.3 L 3.5-5.1 mmol/L Chloride Level 106 101-111 mmol/L Carbon Dioxide Level 29 21-32 mmol/L Blood Urea Nitrogen 17 7-18 mg/dL Creatinine 1.3 H 0.5-1.0 mg/dL Glomerular Filtration Rate Calc 51 >90 mL/min Random Glucose 121 H 70-105 mg/dL Total Calcium 8.5 8.5-10.1 mg/dL Procalcitonin < 0.05 L 0.05-0.5 ng/mL Whole Blood Glucose 137 H 70-110 MG/DL Lactic Acid Level 1.9 0.8-2.5 mmol/L Total Bilirubin 0.3 0.2-1.0 mg/dL Direct Bilirubin 0.1 0.0-0.3 mg/dL Aspartate Amino Transf (AST/SGOT) 22 10-37 U/L Alanine Aminotransferase (ALT/SGPT) 25 12-78 U/L Alkaline Phosphatase 72 50-136 U/L Troponin I High Sensitivity 6 4-50 ng/L Total Protein 7.1 6.0-8.3 g/dL Albumin 3.7 3.5-5.0 g/dL Lipase 43 16-77 U/L Coagulation Labs: Test 02/16/25 20:16 Range/Units Prothrombin Time 10.4 9.6-11.6 SEC Prothromb Time International Ratio 0.98 0.85-1.15 Activated Partial Thromboplast Time 27.3 26.3-35.5 SEC ASSESSMENT: Acute on chronic kidney injury, Hypokalemia Anemia Abdominal Pain, Adnexal Cyst, Left 3 mm Splenomegaly History of Urinary retention History of polycystic kidney/liver disease History of Charcot Kassie Tooth Disease PLAN: Labs, diagnostic, radiologic exams reviewed and interpreted by myself and supervising physician. We have reviewed external records in detail Obtain UA, urine electrolytes, urine creatinine, urine osmolality Require close monitoring of renal function and electrolytes Order CBC, CMP, uric acid, TSH, complete iron panel, ferritin and electrolytes in am BiPAP as necessary, for respiratory distress Monitor blood pressure adjust medication doses as needed Avoid hypotensive episodes May use Dilaudid 0.5 mg IV every 6 hours as needed for severe pain Monitor blood sugars Strict intake, output, and daily weight should be monitored Please renally adjust medications Avoid nephrotoxic and nonsteroidal drugs Avoid contrast if possible Will continue to monitor renal function, anemia, electrolytes Treatment plan discussed with patient Questions were answered We have discussed with the other team physicians in detail about the care plan We will continue to monitor the patient closely Thank you for allowing us to participate in the care of this patient ATTESTATION BY PHYSICIAN I have seen and examined the patient. I reviewed the documentation, medical decision making, and treatment plan as noted by the mid-level provider above. I agree with the findings and plan of care. SHAHRZAD LOZANO MD, ELIZABETH FNP Feb 17, 2025 14:48 SHAHRZAD LOZANO MD Feb 17, 2025 19:55
--- NOTE | 2025-02-17 15:19 | NUR ---
REPORT GIVEN TO NURSE ARMANDO
[2025-02-17 15:30] VITALS: O2SAT 99
--- NOTE | 2025-02-17 15:30 | NUR ---
ADMISSION PATIENT ARRIVED TO FLOOR WITH FAMILY AND HOME MEDICATIONS AT BEDSIDE. REPORTED ABDOMINAL PAIN ON PAIN LEVEL 7/10. PLACED ON LACTATED RINGERS @ 125 ML/HR. RECONCILED HOME MEDICATIONS.
[2025-02-17] MEDS ORDERED: TAMS-55 PO (17:45)
[2025-02-17] MEDS ORDERED: RIZA10TA41 PO (17:45)
[2025-02-17] MEDS ORDERED: GABA-1555 PO (17:45)
[2025-02-17] MEDS ORDERED: LEVO330T5 PO (17:45)
[2025-02-17] MEDS ORDERED: BACL10TA PO (17:45)
[2025-02-17] MEDS ORDERED: TRAZ-187 PO (17:45)
[2025-02-17] MEDS ORDERED: ONDA22I PO (17:45)
[2025-02-17 18:12] LABS: CREATININE,URINE RANDOM 31.58 mg/dL (30-135)
[2025-02-17 20:00] VITALS: BP 110/71; PULSE 85; RESP 18; TEMP 98.1; O2SAT 99
[2025-02-17] MEDS: GABAPENTIN 300 MG CAPSULE ONE (23:04)
[2025-02-17] MEDS: BACLOFEN 10 MG TABLET ONE (23:04)
[2025-02-17] MEDS: GABAPENTIN 300 MG CAPSULE PO SCH (23:15)
[2025-02-17] MEDS ORDERED: RIZATRIPTAN 10MG PO PRN (23:30)
[2025-02-17] MEDS: Cholecalciferol (Vitamin D3) 50,000 UNITS PO SCH (23:30)
[2025-02-18] VITALS (8 sets, daily range): BP systolic 101–155; BP diastolic 65–86; PULSE 79–115; RESP 16–20; TEMP 97.5–100.6; O2SAT 95–96
[2025-02-18 04:10] LABS: IMMATURE GRANULOCYTE ABSOLUTE 0.03 K/uL (0-1); NUCLEATED RED BLOOD CELLS 0.0 % (0.0-0.19); PLATELET COUNT (AUTO) 164 K/uL (130-400); RED BLOOD CELL COUNT(AUTO) 3.98 MIL/uL (4.00-5.50); RED CELL DISTRIBUTION WIDTH 13.2 % (11.0-15.5); WHITE BLOOD COUNT (AUTO) 4.8 K/uL (4.8-10.8)
[2025-02-18 04:25] LABS: % IRON SATURATION 16.6 % (22-44); IRON, SERUM 43.0 mcg/dL (50-170)
[2025-02-18 04:36] LABS: CREATININE 1.5 mg/dL (0.5-1.0); GLOMERULAR FILTR. RATE CALC 43.0 mL/min (>90); GLUCOSE,RANDOM 117.0 mg/dL (70-105); PHOSPHORUS 3.5 mg/dL (2.5-4.9); SODIUM SERUM 143.0 mmol/L (136-145); UREA NITROGEN, BLOOD 14.0 mg/dL (7-18)
[2025-02-18] MEDS: MAGNESIUM 2GM PREMIX 50ML 50 ML IV PRN (05:58)
[2025-02-18] MEDS: LEVOCARNITINE 330 MG PO SCH (08:00)
[2025-02-18] MEDS: BACLOFEN 10 MG TABLET PO SCH (10:07)
--- NOTE | 2025-02-18 11:00 | PN ---
[facility] PROGRESS NOTE Date Patient Seen: Feb 18, 2025 Time of Visit: 10:55 Supervising Physician: [Dr Fuller Primary Care Physician: Dr Castanon Outpatient Specialists: [Dr Racheal Cardenas ([facility]) Inpatient Consults: [ ] PROBLEM LIST: Acute on chronic kidney injury, ST 3B GFR 37 ml/minPOA Hypokalemia, POA resolved Abdominal Pain, POA Adnexal Cyst, Left 3 mm Splenomegaly, POA History of Urinary retention History of polycystic kidney/liver disease History of Charcot Kassie Tooth Disease PLAN: Supplemental oxygen as needed Monitor renal function closely Continue IV fluids Flomax 0.4mg daily Check for flu and COVID PCR Avoid nephrotoxins as possible Follow Nephrology recs Pending pelvic ultrasound results Repeat a.m. labs INTERVAL HISTORY: 45-year-old female with past medical history of polycystic kidney/liver disease, Charcot Kassie tooth disease (recently diagnosed in [facility]) who p resented to ED with complaint of left lower abdominal sharp pain with associated nausea and vomiting and found to have hypokalemia, and acute kidney injury. Patient was seen and examined in ED with present at bedside. According to her her symptoms started yesterday, mostly on the left, with episodic nausea and vomiting. Her symptoms did not improve prompting ER visit. In ED stat CBC was done showed no anemia or infection, chemistry showed potassium of 3.0, and and creatinine level of 1.7, initial lactic acid of 3.0 (now at 1.7), UA showed no leuko esterase or nitrites. CT of the abdomen was done and showed hepatomegaly with multiple well-defined hypodense foci with diffuse distribution in both lobes of the liver, likely cysts, there is also splenomegaly, and 3 mm left adnexal cyst (new findings) In ED patient was initiated on IV fluids, and electrolyte replacement. At present patient is currently hemodynamically stable, on room air with appropriate oxygen saturation, denies any headache, chest pain, shortness of breath, fever, or flu-like symptoms. But still complains of left-sided abdominal. No history of smoking, alcohol intake, or illicit drug use. 02/17 -patient is seen and evaluated in the ED. Patient is sitting up in his stretcher with no signs of acute distress. Patient does continue to complain of diffuse abdominal pain times4 quadrants. Patient reports she has being followed by Nephrology in the [facility] secondary to her polycystic kidney disease. Patient has been treated with IV fluids overnight. No labs we are available for review this morning. We will request some labs. Patient reports she was previously being follow up by Dr. Gould and would like for him to be consulted given her PEÑA. Patient is currently on room air and denies chest discomfort, chest pain or dyspnea. Vital signs are stable. We are still pending report of the pelvic ultrasound. We will continue antiemetics as needed for nausea. We will follow closely. 02/18 - patient is seen sitting up in bed appears to be weak at this time. Patient does continue to complain of abdominal pain x4 quadrants. Pelvic ultrasound results are still pending at this time. Patient does continue with worsening renal dysfunction as today's labs show 1.5 With GFR of43 mL/minute. Patient was evaluated by Nephrology and recommend UA, urine electrolytes, urine creatinine, urine osmolality iron panel ferritin electrolytes. Patient reports feeling feverish chills, severe headache, and body aches. We will rule out flu and COVID at this time. Patient also reports she has a longstanding history of difficulty voiding and has required self catheterizations. Patient reports she takes Flomax at home for assistance. We will resume at this time. We will continue current treatment plan for now. REVIEW OF SYSTEMS: 12 point ROS reviewed with patient. Pertinent positives mentioned above. Otherwise negative. PHYSICAL EXAM: GENERAL: alert, weak, awake oriented x 3 HEENT: EOMI, Sclera non icteric, moist mucosa NECK: Supple, no JVD, trachea midline LUNGS: Clear breath sounds bilaterally. No wheezes HEART: Regular rate and rhythm. Normal S1 and S2, without murmurs ABD: Abdomen soft Bowel sounds present EXT: No clubbing cyanosis or edema NEURO: Alert and oriented to person, follows commands Vital Signs (last 8hr) Date Time Temp Pulse Resp B/P (MAP) Pulse Ox O2 Delivery O2 Flow Rate FiO2 02/18/25 08:00 100.6 115 16 130/86 97 Room Air 02/18/25 04:00 99.1 90 18 131/76 99 Nasal Cannula LABS: Hematology Labs: Test 02/18/25 03:57 Range/Units White Blood Count 4.8 4.8-10.8 K/uL Red Blood Count 3.98 L 4.00-5.50 MIL/uL Hemoglobin 11.6 L 12.0-16.0 g/dL Hematocrit 35.1 L 36-48 % Mean Corpuscular Volume 88.2 79-99 fL Mean Corpuscular Hemoglobin 29.1 27.0-33.0 pg Mean Corpuscular Hemoglobin Concent 33.0 32.0-36.0 g/dL Red Cell Distribution Width 13.2 11.0-15.5 % Platelet Count 164 130-400 K/uL Mean Platelet Volume 11.1 H 7.5-10.5 fL Immature Granulocyte % (Auto) 0.6 0-1 % Neutrophils (%) (Auto) 52.3 40.0-77.0 % Lymphocytes (%) (Auto) 36.0 21.0-51.0 % Monocytes (%) (Auto) 6.8 3.0-13.0 % Eosinophils (%) (Auto) 3.3 0.0-8.0 % Basophils (%) (Auto) 1.0 0.0-5.0 % Neutrophils # (Auto) 2.5 1.8-7.7 K/uL Lymphocytes # (Auto) 1.7 1.0-4.8 K/uL Monocytes # (Auto) 0.3 0.1-1.0 K/uL Eosinophils # (Auto) 0.16 0.00-0.70 K/uL Basophils # (Auto) 0.05 0.00-0.20 K/uL Absolute Immature Granulocyte (auto 0.03 0-1 K/uL Nucleated Red Blood Cells 0.0 0.0-0.19 % Chemistry Labs: Test 02/18/25 03:57 02/17/25 21:24 02/17/25 10:19 02/16/25 23:38 Range/Units Sodium Level 143 136-145 mmol/L Potassium Level 3.5 3.5-5.1 mmol/L Chloride Level 108 101-111 mmol/L Carbon Dioxide Level 27 21-32 mmol/L Blood Urea Nitrogen 14 7-18 mg/dL Creatinine 1.5 H 0.5-1.0 mg/dL Glomerular Filtration Rate Calc 43 >90 mL/min Random Glucose 117 H 70-105 mg/dL Uric Acid 6.6 2.6-7.2 mg/dL Total Calcium 8.1 L 8.5-10.1 mg/dL Phosphorus Level 3.5 2.5-4.9 mg/dL Magnesium Level 1.70 L 1.80-2.40 mg/dL Iron Level 43 L 50-170 mcg/dL Total Iron Binding Capacity 258 250-450 mcg/dL Percent Iron Saturation 16.6 L 22-44 % Thyroid Stimulating Hormone (TSH) 1.07 # 0.36-3.74 uIU/mL Whole Blood Glucose 110 70-110 MG/DL Procalcitonin < 0.05 L 0.05-0.5 ng/mL Lactic Acid Level 1.9 0.8-2.5 mmol/L Test 02/16/25 20:16 Range/Units Total Bilirubin 0.3 0.2-1.0 mg/dL Direct Bilirubin 0.1 0.0-0.3 mg/dL Aspartate Amino Transf (AST/SGOT) 22 10-37 U/L Alanine Aminotransferase (ALT/SGPT) 25 12-78 U/L Alkaline Phosphatase 72 50-136 U/L Troponin I High Sensitivity 6 4-50 ng/L Total Protein 7.1 6.0-8.3 g/dL Albumin 3.7 3.5-5.0 g/dL Lipase 43 16-77 U/L Coagulation Labs: Test 02/16/25 20:16 Range/Units Prothrombin Time 10.4 9.6-11.6 SEC Prothromb Time International Ratio 0.98 0.85-1.15 Activated Partial Thromboplast Time 27.3 26.3-35.5 [facility]NOSTICS / RADIOLOGY RESULTS: [ ] PLAN NEURO: Minimize central acting medications as possible. Maintain fall precautions, adequate lighting during the day PULMONARY: Supplemental 02 as needed. Maintain aspiration precautions at all times CARDIOVASCULAR: Follow hemodynamics. Vital signs per facility protocol GI & NUTRITION: Continue with nutritional support. Continue stool softeners and laxatives as needed. KIDNEYS & ELECTROLYTES: Strict monitoring of intake, output and overall fluid balance. Avoid nephrotoxic medications to the extent possible. Medications to be dosed according to renal function. Monitor electrolytes and replace as needed ENDOCRINE: Maintain blood glucose between 100-180 at all times. Hypoglycemia protocol in place INFECTIOUS DISEASE: Trend temperature, WBC and procalcitonin level Follow cultures, deescalate antibiotics as soon as possible. Panculture if new onset fever ONCOLOGY/HEMATOLOGY/COAGULATION: Monitor for s/s of bleeding Monitor hemoglobin, coagulation studies as needed SKIN: Pressure ulcer prevention per facility protocol Specialty mattress ORTHO/REHAB: Continue PT/OT Prophylaxis: Continue GI and DVT prophylaxis Code Status: Full Resuscitation Disposition: Home once medically stable for discharge ATTESTATION BY PHYSICIAN I attest that I reviewed and discussed the case with the Physician Inside [employer] as well as agree with the Physician Inside [facility]'s findings, plans of care, and documentation above. Dash Monsivais MD, [employer] Feb 18, 2025 10:59
--- NOTE | 2025-02-18 12:34 | PN ---
NEPHROLOGY PROGRESS NOTE Date/Time Patient Seen: Feb 18, 2025 SUBJECTIVE: This is a 45-year-old female with past medical history of polycystic kidney/liver disease, She presented to ED with complaint of left lower abdominal sharp pain with associated nausea and vomiting and found to have hypokalemia, and acute kidney injury. She was noted with elevated BUN/creatinine. We are consulted for renal failure Renal function remains elevated Electrolytes are stable Pending pelvic ultrasound. She continues on gentle IV hydration. Iron panel was noted. CT of the abdomen was noted She was seen in the medical floor, in no acute distress Complaining of edema Family at the bedside Prognosis remains guarded REVIEW OF SYSTEMS: GENERAL: Positive for lower abdominal pain, nausea and vomiting NEUROLOGIC: Negative for any blurry vision, blind spots, double vision, facial asymmetry, dysphagia, dysarthria, hemiparesis, hemisensory deficits, vertigo, ataxia. HEENT: Negative for any head trauma, neck trauma, neck stiffness, photophobia, phonophobia, sinusitis, rhinitis. CARDIAC: Negative for any chest pain, dyspnea on exertion, paroxysmal nocturnal dyspnea, peripheral edema. PULMONARY: Negative for any shortness of breath, wheezing, COPD, or TB exposure. GASTROINTESTINAL: Negative for any abdominal pain, nausea, vomiting, bright red blood per rectum, melena. GENITOURINARY: Negative for any dysuria, hematuria, incontinence. INTEGUMENTARY: Negative for any rashes, cuts, insect bites. RHEUMATOLOGIC: Negative for any joint pains, photosensitive rashes, history of vasculitis or kidney problems. HEMATOLOGIC: Negative for any abnormal bruising, frequent infections or bleeding. PHYSICAL EXAM: GENERAL: Alert and oriented x 3. No acute distress. Well-nourished. EYES: EOMI. Anicteric. HENT: Moist mucous membranes. No scleral icterus. No cervical lymphadenopathy. LUNGS: Clear to auscultation bilaterally. No accessory muscle use. CARDIOVASCULAR: Regular rate and rhythm. No murmur. No JVD. ABDOMEN: Soft, non-tender and non-distended. No palpable masses. EXTREMITIES: No edema. Non-tender. SKIN: No rashes or lesions. Warm. NEUROLOGIC: No focal neurological deficits. CN II-XII grossly intact, but not individually tested. PSYCHIATRIC: Cooperative. Appropriate mood and affect. LABORATORY: [ ] Hematology Labs: Test 02/18/25 03:57 Range/Units White Blood Count 4.8 4.8-10.8 K/uL Red Blood Count 3.98 L 4.00-5.50 MIL/uL Hemoglobin 11.6 L 12.0-16.0 g/dL Hematocrit 35.1 L 36-48 % Mean Corpuscular Volume 88.2 79-99 fL Mean Corpuscular Hemoglobin 29.1 27.0-33.0 pg Mean Corpuscular Hemoglobin Concent 33.0 32.0-36.0 g/dL Red Cell Distribution Width 13.2 11.0-15.5 % Platelet Count 164 130-400 K/uL Mean Platelet Volume 11.1 H 7.5-10.5 fL Immature Granulocyte % (Auto) 0.6 0-1 % Neutrophils (%) (Auto) 52.3 40.0-77.0 % Lymphocytes (%) (Auto) 36.0 21.0-51.0 % Monocytes (%) (Auto) 6.8 3.0-13.0 % Eosinophils (%) (Auto) 3.3 0.0-8.0 % Basophils (%) (Auto) 1.0 0.0-5.0 % Neutrophils # (Auto) 2.5 1.8-7.7 K/uL Lymphocytes # (Auto) 1.7 1.0-4.8 K/uL Monocytes # (Auto) 0.3 0.1-1.0 K/uL Eosinophils # (Auto) 0.16 0.00-0.70 K/uL Basophils # (Auto) 0.05 0.00-0.20 K/uL Absolute Immature Granulocyte (auto 0.03 0-1 K/uL Nucleated Red Blood Cells 0.0 0.0-0.19 % Chemistry Labs: Test 02/18/25 03:57 02/17/25 21:24 02/17/25 10:19 02/16/25 23:38 Range/Units Sodium Level 143 136-145 mmol/L Potassium Level 3.5 3.5-5.1 mmol/L Chloride Level 108 101-111 mmol/L Carbon Dioxide Level 27 21-32 mmol/L Blood Urea Nitrogen 14 7-18 mg/dL Creatinine 1.5 H 0.5-1.0 mg/dL Glomerular Filtration Rate Calc 43 >90 mL/min Random Glucose 117 H 70-105 mg/dL Uric Acid 6.6 2.6-7.2 mg/dL Total Calcium 8.1 L 8.5-10.1 mg/dL Phosphorus Level 3.5 2.5-4.9 mg/dL Magnesium Level 1.70 L 1.80-2.40 mg/dL Iron Level 43 L 50-170 mcg/dL Total Iron Binding Capacity 258 250-450 mcg/dL Percent Iron Saturation 16.6 L 22-44 % Thyroid Stimulating Hormone (TSH) 1.07 # 0.36-3.74 uIU/mL Whole Blood Glucose 110 70-110 MG/DL Procalcitonin < 0.05 L 0.05-0.5 ng/mL Lactic Acid Level 1.9 0.8-2.5 mmol/L Test 02/16/25 20:16 Range/Units Total Bilirubin 0.3 0.2-1.0 mg/dL Direct Bilirubin 0.1 0.0-0.3 mg/dL Aspartate Amino Transf (AST/SGOT) 22 10-37 U/L Alanine Aminotransferase (ALT/SGPT) 25 12-78 U/L Alkaline Phosphatase 72 50-136 U/L Troponin I High Sensitivity 6 4-50 ng/L Total Protein 7.1 6.0-8.3 g/dL Albumin 3.7 3.5-5.0 g/dL Lipase 43 16-77 U/L Coagulation Labs: Test 02/16/25 20:16 Range/Units Prothrombin Time 10.4 9.6-11.6 SEC Prothromb Time International Ratio 0.98 0.85-1.15 Activated Partial Thromboplast Time 27.3 26.3-35.5 [facility] / RADIOLOGY: [address] [address] [place] [address] IMAGING REPORT Signed PATIENT: VAISHNAVI AGUSTIN MR#: [id number] : 1980 SEX: F AGE: 45 LOCATION: [facility] ORDER 00 STATUS: REG REPORT#: [id number] SERVICE 58 REASON: Abdominal pain ORDERING PHYSICIAN: CRISTOPHER ARIAS MD PROCEDURE: ABD PEL WO - CT ABDOMEN/PELVIS W/O CONTRAST EXAM: CT Abdomen and Pelvis Without IV contrast CLINICAL HISTORY: Abdominal pain TECHNIQUE: Axial computed tomography images of the abdomen and pelvis without intravenous contrast. COMPARISON: CT abdomen and pelvis dated 01/20/2025. FINDINGS: LUNG BASES: The lung bases appear clear. No pleural effusions are seen. LIVER: Enlarged in size, measuring 17 cm. Multiple well-defined hypodense foci with diffuse distribution in both lobes of the liver, the largest measuring 1.3 x 1 cm in the segment COLLEEN of the liver. GALLBLADDER AND BILE DUCTS: Post cholecystectomy status. No biliary ductal dilatation is evident. PANCREAS: Unremarkable. SPLEEN: Enlarged in size, measuring 12.5 cm. ADRENAL GLANDS: Unremarkable. KIDNEYS, URETERS, AND BLADDER: The left kidney is not visualized. Right Kidney: There is no hydronephrosis or hydroureter. No urinary calculi are seen. Diffuse thickening of the urinary bladder wall measuring 4-5 mm. STOMACH AND BOWEL: Unremarkable appearance of the stomach and bowel. No evidence of bowel obstruction. No evidence suggesting enteritis or colitis. APPENDIX: No evidence of acute appendicitis on CT examination. PERITONEUM: No free fluid. No free air. LYMPH NODES: No lymphadenopathy is evident. REPRODUCTIVE: Post hysterectomy status. 3 cm cystic structure in the left adnexa. VASCULATURE: No evidence of abdominal aortic aneurysm. BONES: No aggressive appearing osseous lesion. No acute osseous pathology evident. Umbilical hernia measuring 0.9 cm with herniation of omental fat. IMPRESSION: Hepatomegaly with multiple well-defined hypodense foci with diffuse distribution in both lobes of the liver. Likely cysts. Recommend a multiphase contrast-enhanced MRI of the liver for further characterization. Mild cystitis. Umbilical hernia. Splenomegaly. 3 cm cystic structure in the left adnexa.. Recommend ultrasound of the pelvis for further evaluation. Compared to the previous CT, there is complete interval improvement in the previously noted ascites and right renal pyelonephritis. Interval increase in the number of hepatic cysts. Left adnexal cyst is a new finding. /[place] DICTATED BY: KYA VAUGHN Jr., MD DATE: 02/17/25 0003 ELECTRONICALLY SIGNED BY: KYA VAUGHN Jr., MD DATE: 02/17/25 0003 ASSESSMENT: Acute on chronic kidney injury, Hypokalemia Anemia Abdominal Pain, Adnexal Cyst, Left 3 mm Splenomegaly History of Urinary retention History of polycystic kidney/liver disease History of Charcot Kassie Tooth Disease PLAN: Labs, diagnostic, radiologic exams reviewed and interpreted by myself and supervising physician. We have reviewed external records in detail Recommend discontinue IV fluids. Pending records from [facility]. Start Venofer 300 mg IV daily x 3 doses. Magnesium replacement has been ordered Require close monitoring of renal function and electrolytes Order CBC, CMP, ferritin and electrolytes in am BiPAP as necessary, for respiratory distress Monitor blood pressure adjust medication doses as needed Avoid hypotensive episodes May use Dilaudid 0.5 mg IV every 6 hours as needed for severe pain Monitor blood sugars Strict intake, output, and daily weight should be monitored Please renally adjust medications Avoid nephrotoxic and nonsteroidal drugs Avoid contrast if possible Will continue to monitor renal function, anemia, electrolytes Treatment plan discussed with patient Questions were answered We have discussed with the other team physicians in detail about the care plan We will continue to monitor the patient closely ATTESTATION BY PHYSICIAN I have seen and examined the patient. I reviewed the documentation, medical decision making, and treatment plan as noted by the mid-level provider above. I agree with the findings and plan of care. SHAHRZAD LOZANO MD, [facility] Feb 18, 2025 12:34
[2025-02-18] MEDS ORDERED: COMPOUND IV MISC 1 EACH IVSOLN MISC PRN (18:00)
[2025-02-18] MEDS ORDERED: PoTASSium chl 10% ELIXIR 20MEQ 20 MEQ/15 ML UDCUP PO PRN (18:30)
[2025-02-18 19:49] LABS: COVID19 (SARS ANTIGEN RAPID) PRESUMPTIVE NEGATIVE (NEGATIVE); INFLUENZA TYPE A Negative For Type A (NEGATIVE); INFLUENZA TYPE B Negative For Type B (NEGATIVE)
[2025-02-18] MEDS: PoTASSium chloRIDE 20MEQ ER 20 MEQ ERTAB PO PRN (20:35)
[2025-02-19 00:25] VITALS: BP 101/61; PULSE 69; RESP 17; TEMP 98.2
--- NOTE | 2025-02-19 02:57 | NUR ---
nurse note patient alert and oriented times 3. plan of care discussed with her and her . they verbalized understanding. patient is ambulatory to the restroom. she has intermittent abdominal pain relieved by dilaudid. she has slept about 5 hours tonight. call light within reach, bed alarm on, 2 side rails up. will continue to monitor patient.
[2025-02-19 04:00] VITALS: BP 97/52; PULSE 72; RESP 18; TEMP 98.3
[2025-02-19 05:05] LABS: NUCLEATED RED BLOOD CELLS 0.0 % (0.0-0.19); PLATELET COUNT (AUTO) 162.0 K/uL (130-400); RED BLOOD CELL COUNT(AUTO) 3.63 MIL/uL (4.00-5.50); RED CELL DISTRIBUTION WIDTH 13.1 % (11.0-15.5); WHITE BLOOD COUNT (AUTO) 5.2 K/uL (4.8-10.8)
[2025-02-19 05:40] LABS: CREATININE 1.4 mg/dL (0.5-1.0); GLOMERULAR FILTR. RATE CALC 47.0 mL/min (>90); GLUCOSE,RANDOM 129.0 mg/dL (70-105); SODIUM SERUM 142.0 mmol/L (136-145); UREA NITROGEN, BLOOD 11.0 mg/dL (7-18)
[2025-02-19 08:00] VITALS: BP 109/68; PULSE 77; RESP 16; TEMP 98.1; O2SAT 95
--- NOTE | 2025-02-19 10:38 | PN ---
[facility] PROGRESS NOTE Date Patient Seen: Feb 19, 2025 Time of Visit: 10:37 Supervising Physician: [ ] Primary Care Physician: Dr Castanon Outpatient Specialists: [Dr Racheal Cardenas ([facility]) Inpatient Consults: [ ] PROBLEM LIST: Acute on chronic kidney injury, ST 3B GFR 37 ml/minPOA Hypokalemia, POA resolved Abdominal Pain, POA Adnexal Cyst, Left 3 mm Splenomegaly, POA History of Urinary retention History of polycystic kidney/liver disease History of Charcot Kassie Tooth Disease PLAN: Supplemental oxygen as needed Monitor renal function closely Continue IV fluids Flomax 0.4mg daily Check for flu and COVID PCR Avoid nephrotoxins as possible Follow Nephrology recs Pending pelvic ultrasound results Repeat a.m. 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 Patient was seen and examined in ED with present at bedside. According to her her symptoms started yesterday, mostly on the left, with episodic nausea and vomiting. Her symptoms did not improve prompting ER visit. In ED stat CBC was done showed no anemia or infection, chemistry showed potassium of 3.0, and and creatinine level of 1.7, initial lactic acid of 3.0 (now at 1.7), UA showed no leuko esterase or nitrites. CT of the abdomen was done and showed hepatomegaly with multiple well-defined hypodense foci with diffuse distribution in both lobes of the liver, likely cysts, there is also splenomegaly, and 3 mm left adnexal cyst (new findings) In ED patient was initiated on IV fluids, and electrolyte replacement. At present patient is currently hemodynamically stable, on room air with appropriate oxygen saturation, denies any headache, chest pain, shortness of breath, fever, or flu-like symptoms. But still complains of left-sided abdominal. No history of smoking, alcohol intake, or illicit drug use. 02/17 -patient is seen and evaluated in the ED. Patient is sitting up in his stretcher with no signs of acute distress. Patient does continue to complain of diffuse abdominal pain times4 quadrants. Patient reports she has being followed by Nephrology in the [facility] secondary to her polycystic kidney disease. Patient has been treated with IV fluids overnight. No labs we are available for review this morning. We will request some labs. Patient reports she was previously being follow up by Dr. Gould and would like for him to be consulted given her PEÑA. Patient is currently on room air and denies chest discomfort, chest pain or dyspnea. Vital signs are stable. We are still pending report of the pelvic ultrasound. We will continue antiemetics as needed for nausea. We will follow closely. 02/18 - patient is seen sitting up in bed appears to be weak at this time. Patient does continue to complain of abdominal pain x4 quadrants. Pelvic ultrasound results are still pending at this time. Patient does continue with worsening renal dysfunction as today's labs show 1.5 With GFR of43 mL/minute. Patient was evaluated by Nephrology and recommend UA, urine electrolytes, urine creatinine, urine osmolality iron panel ferritin electrolytes. Patient reports feeling feverish chills, severe headache, and body aches. We will rule out flu and COVID at this time. Patient also reports she has a longstanding history of difficulty voiding and has required self catheterizations. Patient reports she takes Flomax at home for assistance. We will resume at this time. We will continue current treatment plan for now. REVIEW OF SYSTEMS: 12 point ROS reviewed with patient. Pertinent positives mentioned above. Otherwise negative. PHYSICAL EXAM: GENERAL: alert, weak, awake oriented x 3 HEENT: EOMI, Sclera non icteric, moist mucosa NECK: Supple, no JVD, trachea midline LUNGS: Clear breath sounds bilaterally. No wheezes HEART: Regular rate and rhythm. Normal S1 and S2, without murmurs ABD: Abdomen soft Bowel sounds present EXT: No clubbing cyanosis or edema NEURO: Alert and oriented to person, follows commands Vital Signs (last 8hr) Date Time Temp Pulse Resp B/P (MAP) Pulse Ox O2 Delivery O2 Flow Rate FiO2 02/19/25 08:00 98.1 77 16 109/68 95 Room Air 21 02/19/25 08:00 95 Room Air* 0 21 02/19/25 04:00 98.2 72 18 97/52 93 Room Air LABS: Hematology Labs: Test 02/19/25 04:26 02/18/25 03:57 Range/Units White Blood Count 5.2 4.8-10.8 K/uL Red Blood Count 3.63 L 4.00-5.50 MIL/uL Hemoglobin 10.4 L 12.0-16.0 g/dL Hematocrit 31.3 L 36-48 % Mean Corpuscular Volume 86.2 79-99 fL Mean Corpuscular Hemoglobin 28.7 27.0-33.0 pg Mean Corpuscular Hemoglobin Concent 33.2 32.0-36.0 g/dL Red Cell Distribution Width 13.1 11.0-15.5 % Platelet Count 162 130-400 K/uL Mean Platelet Volume 10.5 7.5-10.5 fL Nucleated Red Blood Cells 0.0 0.0-0.19 % Immature Granulocyte % (Auto) 0.6 0-1 % Neutrophils (%) (Auto) 52.3 40.0-77.0 % Lymphocytes (%) (Auto) 36.0 21.0-51.0 % Monocytes (%) (Auto) 6.8 3.0-13.0 % Eosinophils (%) (Auto) 3.3 0.0-8.0 % Basophils (%) (Auto) 1.0 0.0-5.0 % Neutrophils # (Auto) 2.5 1.8-7.7 K/uL Lymphocytes # (Auto) 1.7 1.0-4.8 K/uL Monocytes # (Auto) 0.3 0.1-1.0 K/uL Eosinophils # (Auto) 0.16 0.00-0.70 K/uL Basophils # (Auto) 0.05 0.00-0.20 K/uL Absolute Immature Granulocyte (auto 0.03 0-1 K/uL Chemistry Labs: Test 02/19/25 04:26 02/18/25 03:57 02/17/25 21:24 Range/Units Sodium Level 142 136-145 mmol/L Potassium Level 3.6 3.5-5.1 mmol/L Chloride Level 107 101-111 mmol/L Carbon Dioxide Level 28 21-32 mmol/L Blood Urea Nitrogen 11 7-18 mg/dL Creatinine 1.4 H 0.5-1.0 mg/dL Glomerular Filtration Rate Calc 47 >90 mL/min Random Glucose 129 H 70-105 mg/dL Total Calcium 7.8 L 8.5-10.1 mg/dL Magnesium Level 1.90 1.80-2.40 mg/dL Ferritin 66 15-150 ng/mL Uric Acid 6.6 2.6-7.2 mg/dL Phosphorus Level 3.5 2.5-4.9 mg/dL Iron Level 43 L 50-170 mcg/dL Total Iron Binding Capacity 258 250-450 mcg/dL Percent Iron Saturation 16.6 L 22-44 % Thyroid Stimulating Hormone (TSH) 1.07 # 0.36-3.74 uIU/mL Whole Blood Glucose 110 70-110 MG/DL DIAGNOSTICS / RADIOLOGY RESULTS: [ ] PLAN NEURO: Minimize central acting medications as possible. Maintain fall precautions, adequate lighting during the day PULMONARY: Supplemental 02 as needed. Maintain aspiration precautions at all times CARDIOVASCULAR: Follow hemodynamics. Vital signs per facility protocol GI & NUTRITION: Continue with nutritional support. Continue stool softeners and laxatives as needed. KIDNEYS & ELECTROLYTES: Strict monitoring of intake, output and overall fluid balance. Avoid nephrotoxic medications to the extent possible. Medications to be dosed according to renal function. Monitor electrolytes and replace as needed ENDOCRINE: Maintain blood glucose between 100-180 at all times. Hypoglycemia protocol in place INFECTIOUS DISEASE: Trend temperature, WBC and procalcitonin level Follow cultures, deescalate antibiotics as soon as possible. Panculture if new onset fever ONCOLOGY/HEMATOLOGY/COAGULATION: Monitor for s/s of bleeding Monitor hemoglobin, coagulation studies as needed SKIN: Pressure ulcer prevention per facility protocol Specialty mattress ORTHO/REHAB: Continue PT/OT Prophylaxis: Continue GI and DVT prophylaxis Code Status: Full Resuscitation Disposition: Home once medically stable for discharge MARICEL AGEE AGACNP Feb 19, 2025 10:37
[2025-02-19 12:00] VITALS: BP 122/82; PULSE 87; RESP 16; TEMP 98.6
--- NOTE | 2025-02-19 12:56 | PN ---
NEPHROLOGY PROGRESS NOTE Date/Time Patient Seen: Feb 19, 2025 SUBJECTIVE: This is a 45-year-old female with past medical history of polycystic kidney/liver disease, She presented to ED with complaint of left lower abdominal sharp pain with associated nausea and vomiting and found to have hypokalemia, and acute kidney injury. CT of the abdomen was noted Pending pelvic ultrasound results She was noted with elevated BUN/creatinine. We are consulted for renal failure Renal function and electrolytes are stable Iron panel was noted, continues on IV Iron Pending records from [facility] She was seen in the medical floor, in no acute distress Family at the bedside, multiple questions were answered Prognosis remains guarded REVIEW OF SYSTEMS: GENERAL: Positive for lower abdominal pain, nausea and vomiting NEUROLOGIC: Negative for any blurry vision, blind spots, double vision, facial asymmetry, dysphagia, dysarthria, hemiparesis, hemisensory deficits, vertigo, ataxia. HEENT: Negative for any head trauma, neck trauma, neck stiffness, photophobia, phonophobia, sinusitis, rhinitis. CARDIAC: Negative for any chest pain, dyspnea on exertion, paroxysmal nocturnal dyspnea, peripheral edema. PULMONARY: Negative for any shortness of breath, wheezing, COPD, or TB exposure. GASTROINTESTINAL: Negative for any abdominal pain, nausea, vomiting, bright red blood per rectum, melena. GENITOURINARY: Negative for any dysuria, hematuria, incontinence. INTEGUMENTARY: Negative for any rashes, cuts, insect bites. RHEUMATOLOGIC: Negative for any joint pains, photosensitive rashes, history of vasculitis or kidney problems. HEMATOLOGIC: Negative for any abnormal bruising, frequent infections or bleeding. Vital Signs (last 8hr) Date Time Temp Pulse Resp B/P (MAP) Pulse Ox O2 Delivery O2 Flow Rate FiO2 02/19/25 08:00 98.1 77 16 109/68 95 Room Air 21 02/19/25 08:00 95 Room Air* 0 21 PHYSICAL EXAM: GENERAL: Alert and oriented x 3. No acute distress. Well-nourished. EYES: EOMI. Anicteric. HENT: Moist mucous membranes. No scleral icterus. No cervical lymphadenopathy. LUNGS: Clear to auscultation bilaterally. No accessory muscle use. CARDIOVASCULAR: Regular rate and rhythm. No murmur. No JVD. ABDOMEN: Soft, non-tender and non-distended. No palpable masses. EXTREMITIES: No edema. Non-tender. SKIN: No rashes or lesions. Warm. NEUROLOGIC: No focal neurological deficits. CN II-XII grossly intact, but not individually tested. PSYCHIATRIC: Cooperative. Appropriate mood and affect. Current Medications Medications (Trade) Dose Ordered Sig/[place] Route Start Time Stop Time Status Last Admin Dose Admin Baclofen (Baclofen) 10 mg BID PO 02/18/25 09:00 03/20/25 08:59 02/19/25 08:20 10 MG Gabapentin (NEURontin 300 MG CAP) 600 mg BID PO 02/17/25 23:15 03/19/25 23:14 02/19/25 08:21 600 MG Home Med (Home Medication) Cholecalciferol (Vitamin D3) 50,000 UNITS QWEEK PO 02/17/25 23:30 03/19/25 23:29 Home Med (Home Medication) Levocarnitine 330 MG TIDMEALS PO 02/18/25 08:00 03/20/25 07:59 Home Med (Home Medication) Thyroid,Pork (Sequins Spooler Thyroid)... AM PO 02/18/25 09:00 03/20/25 08:59 Insulin Human Regular (humuLIN R 100 UNIT/ML 3ML) INSULIN SLIDING SCAL... ACHS SQ 02/17/25 07:30 02/17/25 22:35 DC Iron Sucrose (VenoFER) 300 mg Q24H IVP 02/18/25 17:00 02/18/25 17:04 DC Iron Sucrose 300 mg/Sodium Chloride 250 ml @ 125 mls/hr Q24H IVP 02/18/25 17:30 02/20/25 19:29 02/18/25 18:13 125 MLS/HR Lactated Ringer's 1,000 ml @ 125 mls/hr Q8H IV 02/17/25 00:30 02/18/25 16:44 DC 02/18/25 10:07 125 MLS/HR Polyethylene Glycol (MIRalax 3350 17 GM POWD.PACK) 17 gm DAILY PO 02/17/25 09:00 03/19/25 08:59 02/19/25 08:20 17 GM Tamsulosin HCl (FloMAX) 0.4 mg DAILY PO 02/17/25 22:30 02/17/25 23:20 DC Tamsulosin HCl (FloMAX) 0.4 mg DAILY PO 02/18/25 11:00 03/20/25 10:59 02/19/25 08:20 0.4 MG Trazodone HCl (DesyREL/OlepTRO) 100 mg HS PO 02/18/25 21:00 03/20/25 20:59 02/18/25 20:35 100 MG LABORATORY: [ ] Hematology Labs: Test 02/19/25 04:26 02/18/25 03:57 Range/Units White Blood Count 5.2 4.8-10.8 K/uL Red Blood Count 3.63 L 4.00-5.50 MIL/uL Hemoglobin 10.4 L 12.0-16.0 g/dL Hematocrit 31.3 L 36-48 % Mean Corpuscular Volume 86.2 79-99 fL Mean Corpuscular Hemoglobin 28.7 27.0-33.0 pg Mean Corpuscular Hemoglobin Concent 33.2 32.0-36.0 g/dL Red Cell Distribution Width 13.1 11.0-15.5 % Platelet Count 162 130-400 K/uL Mean Platelet Volume 10.5 7.5-10.5 fL Nucleated Red Blood Cells 0.0 0.0-0.19 % Immature Granulocyte % (Auto) 0.6 0-1 % Neutrophils (%) (Auto) 52.3 40.0-77.0 % Lymphocytes (%) (Auto) 36.0 21.0-51.0 % Monocytes (%) (Auto) 6.8 3.0-13.0 % Eosinophils (%) (Auto) 3.3 0.0-8.0 % Basophils (%) (Auto) 1.0 0.0-5.0 % Neutrophils # (Auto) 2.5 1.8-7.7 K/uL Lymphocytes # (Auto) 1.7 1.0-4.8 K/uL Monocytes # (Auto) 0.3 0.1-1.0 K/uL Eosinophils # (Auto) 0.16 0.00-0.70 K/uL Basophils # (Auto) 0.05 0.00-0.20 K/uL Absolute Immature Granulocyte (auto 0.03 0-1 K/uL Chemistry Labs: Test 02/19/25 04:26 02/18/25 03:57 02/17/25 21:24 Range/Units Sodium Level 142 136-145 mmol/L Potassium Level 3.6 3.5-5.1 mmol/L Chloride Level 107 101-111 mmol/L Carbon Dioxide Level 28 21-32 mmol/L Blood Urea Nitrogen 11 7-18 mg/dL Creatinine 1.4 H 0.5-1.0 mg/dL Glomerular Filtration Rate Calc 47 >90 mL/min Random Glucose 129 H 70-105 mg/dL Total Calcium 7.8 L 8.5-10.1 mg/dL Magnesium Level 1.90 1.80-2.40 mg/dL Ferritin 66 15-150 ng/mL Uric Acid 6.6 2.6-7.2 mg/dL Phosphorus Level 3.5 2.5-4.9 mg/dL Iron Level 43 L 50-170 mcg/dL Total Iron Binding Capacity 258 250-450 mcg/dL Percent Iron Saturation 16.6 L 22-44 % Thyroid Stimulating Hormone (TSH) 1.07 # 0.36-3.74 uIU/mL Whole Blood Glucose 110 70-110 MG/DL DIAGNOSTICS / RADIOLOGY: [place] [address] IMAGING REPORT Signed PATIENT: VAISHNAVI AGUSTIN MR#: [id number] : 1980 SEX: F AGE: 45 LOCATION: [facility] ORDER 00 STATUS: REG REPORT#: [id number] SERVICE 58 REASON: Abdominal pain ORDERING PHYSICIAN: CRISTOPHER ARIAS MD PROCEDURE: ABD PEL WO - CT ABDOMEN/PELVIS W/O CONTRAST EXAM: CT Abdomen and Pelvis Without IV contrast CLINICAL HISTORY: Abdominal pain TECHNIQUE: Axial computed tomography images of the abdomen and pelvis without intravenous contrast. COMPARISON: CT abdomen and pelvis dated 01/20/2025. FINDINGS: LUNG BASES: The lung bases appear clear. No pleural effusions are seen. LIVER: Enlarged in size, measuring 17 cm. Multiple well-defined hypodense foci with diffuse distribution in both lobes of the liver, the largest measuring 1.3 x 1 cm in the segment COLLEEN of the liver. GALLBLADDER AND BILE DUCTS: Post cholecystectomy status. No biliary ductal dilatation is evident. PANCREAS: Unremarkable. SPLEEN: Enlarged in size, measuring 12.5 cm. ADRENAL GLANDS: Unremarkable. KIDNEYS, URETERS, AND BLADDER: The left kidney is not visualized. Right Kidney: There is no hydronephrosis or hydroureter. No urinary calculi are seen. Diffuse thickening of the urinary bladder wall measuring 4-5 mm. STOMACH AND BOWEL: Unremarkable appearance of the stomach and bowel. No evidence of bowel obstruction. No evidence suggesting enteritis or colitis. APPENDIX: No evidence of acute appendicitis on CT examination. PERITONEUM: No free fluid. No free air. LYMPH NODES: No lymphadenopathy is evident. REPRODUCTIVE: Post hysterectomy status. 3 cm cystic structure in the left adnexa. VASCULATURE: No evidence of abdominal aortic aneurysm. BONES: No aggressive appearing osseous lesion. No acute osseous pathology evident. Umbilical hernia measuring 0.9 cm with herniation of omental fat. IMPRESSION: Hepatomegaly with multiple well-defined hypodense foci with diffuse distribution in both lobes of the liver. Likely cysts. Recommend a multiphase contrast-enhanced MRI of the liver for further characterization. Mild cystitis. Umbilical hernia. Splenomegaly. 3 cm cystic structure in the left adnexa.. Recommend ultrasound of the pelvis for further evaluation. Compared to the previous CT, there is complete interval improvement in the previously noted ascites and right renal pyelonephritis. Interval increase in the number of hepatic cysts. Left adnexal cyst is a new finding. /[place] DICTATED BY: KYA VAUGHN Jr., MD DATE: 02/17/25 0003 ELECTRONICALLY SIGNED BY: KYA VAUGHN Jr., MD DATE: 02/17/25 0003 ASSESSMENT: Acute on chronic kidney injury Hypokalemia Anemia Abdominal Pain, Adnexal Cyst, Left 3 mm Splenomegaly History of Urinary retention History of polycystic kidney/liver disease History of Charcot Kassie Tooth Disease PLAN: Labs, diagnostic, radiologic exams reviewed and interpreted by myself and supervising physician. We have reviewed external records in detail Pending records from [facility]. Continue with Venofer Require close monitoring of renal function and electrolytes Order CBC, CMP, ferritin and electrolytes in am BiPAP as necessary, for respiratory distress Monitor blood pressure adjust medication doses as needed Avoid hypotensive episodes May use Dilaudid 0.5 mg IV every 6 hours as needed for severe pain Monitor blood sugars Strict intake, output, and daily weight should be monitored Please renally adjust medications Avoid nephrotoxic and nonsteroidal drugs Avoid contrast if possible Will continue to monitor renal function, anemia, electrolytes Treatment plan discussed with patient Questions were answered We have discussed with the other team physicians in detail about the care plan We will continue to monitor the patient closely ATTESTATION BY PHYSICIAN I have seen and examined the patient. I reviewed the documentation, medical decision making, and treatment plan as noted by the mid-level provider above. I agree with the findings and plan of care. SHAHRZAD LOZANO MD, [facility] Feb 19, 2025 12:56
--- NOTE | 2025-02-19 13:32 | DS ---
[facility] DISCHARGE SUMMARY Date Patient Seen: Feb 19, 2025 Time of Visit: 13:32 Supervising Physician: Dr. Dash Fuller Primary Care Physician: Dr Castanon Outpatient Specialists: [Dr Racheal Cardenas ([facility]) Inpatient Consults: [ ] PROBLEM LIST: Acute on chronic kidney injury, ST 3B GFR 37 ml/minPOA Abdominal Pain, POA Adnexal Cyst, Left 3 mm Splenomegaly, POA History of Urinary retention History of polycystic kidney/liver disease History of Charcot Kassie Tooth Disease Hypokalemia, POA resolved PLAN: Supplemental oxygen as needed Monitor renal function closely Continue IV fluids Flomax 0.4mg daily Check for flu and COVID PCR Avoid nephrotoxins as possible Follow Nephrology recs Pending pelvic ultrasound results Repeat a.m. labs HOSPITAL COURSE: 02/17 -patient is seen and evaluated in the ED. Patient is sitting up in his stretcher with no signs of acute distress. Patient does continue to complain of diffuse abdominal pain times4 quadrants. Patient reports she has being followed by Nephrology in the [facility] secondary to her polycystic kidney disease. Patient has been treated with IV fluids overnight. No labs we are available for review this morning. We will request some labs. Patient reports she was previously being follow up by Dr. Gould and would like for him to be consulted given her PEÑA. Patient is currently on room air and denies chest discomfort, chest pain or dyspnea. Vital signs are stable. We are still pending report of the pelvic ultrasound. We will continue antiemetics as needed for nausea. We will follow closely. 02/18 - patient is seen sitting up in bed appears to be weak at this time. Patient does continue to complain of abdominal pain x4 quadrants. Pelvic ultrasound results are still pending at this time. Patient does continue with worsening renal dysfunction as today's labs show 1.5 With GFR of43 mL/minute. Patient was evaluated by Nephrology and recommend UA, urine electrolytes, urine creatinine, urine osmolality iron panel ferritin electrolytes. Patient reports feeling feverish chills, severe headache, and body aches. We will rule out flu and COVID at this time. Patient also reports she has a longstanding history of difficulty voiding and has required self catheterizations. Patient reports she takes Flomax at home for assistance. We will resume at this time. We will continue current treatment plan for now. 02/19- assessed and examined the patient while spouse is sitting in the patient's room, awake, alert, and oriented and in no acute distress. Patient reports having abdominal discomfort left lower quadrant, vital signs were stable, afebrile, no nauseousness, and there is not in acute condition discovered by diagnostic testing warranting immediate action. At this time I discussed with patient and spouse what would be the most appropriate,Adnexal Cyst, Left 3 mm, this could attached to a fibroid or abdominal adhesion which the patient has a history of resulting in this excruciating pain that the patient has had. Outstanding tests awaiting results the pelvic ultrasound is pending. At this time patient and spouse agree that the most logical next step for the patient is to follow up with an OBGYN and the patient has selected for further outpatient clinical workup to see if the patient has has a cyst or abdominal adhesion contributing to her periodic pain that she has no left lower quadrant. Patient was written prescriptions for stool softeners and stool laxatives to reduce the possible occurrence of constipation and additional pain and discomfort. Patient will be following up with primary care provider Dr. Tyrel Castanon in 2-3 days for a wellness check then she will be following up with her OBGYN at this time the patient and spouse have no other questions or concerns verbalized understanding of the discharge plan. HPI (per admitting provider) 45-year-old female with past medical history of polycystic kidney/liver disease, Charcot Kassie tooth disease (recently diagnosed in [facility]) who presented to ED with complaint of left lower abdominal sharp pain with associated nausea and vomiting and found to have hypokalemia, and acute kidney injury. Patient was seen and examined in ED with present at bedside. According to her her symptoms started yesterday, mostly on the left, with episodic nausea and vomiting. Her symptoms did not improve prompting ER visit. In ED stat CBC was done showed no anemia or infection, chemistry showed potassium of 3.0, and and creatinine level of 1.7, initial lactic acid of 3.0 (now at 1.7), UA showed no leuko esterase or nitrites. CT of the abdomen was done and showed hepatomegaly with multiple well-defined hypodense foci with diffuse distribution in both lobes of the liver, likely cysts, there is also splenomegaly, and 3 mm left adnexal cyst (new findings) In ED patient was initiated on IV fluids, and electrolyte replacement. At present patient is currently hemodynamically stable, on room air with appropriate oxygen saturation, denies any headache, chest pain, shortness of breath, fever, or flu-like symptoms. But still complains of left-sided abdominal. No history of smoking, alcohol intake, or illicit drug use The patient was treated for the following problems: ACTIVE PROBLEM LIST FOR THE HOSPITALIZATION: Acute on chronic kidney injury, ST 3B GFR 37 ml/minPOA Abdominal Pain, POA Adnexal Cyst, Left 3 mm Splenomegaly, POA CHRONIC PROBLEMS: continue previous management per PCP unless otherwise indicated History of Urinary retention History of polycystic kidney/liver disease History of Charcot Kassie Tooth Disease Hypokalemia, POA resolved PROC TECH FINDINGS/RECOMMENDATIONS: [ ] PROCEDURES: as mentioned above DISCHARGE MEDICATIONS: Colace 100 mg p.o. b.i.d., 30 days, 60 tablets, hold for loose watery stools Dulculax 10 mg p.o. daily, five days, five tablets, take one tablet daily hold for loose watery stools. Pt hemodynamically stable and afebrile at time of discharge. PCP notified of patients admission, hospital course and discharge. PHYSICAL EXAM: GENERAL: alert, weak, awake oriented x 3 HEENT: EOMI, Sclera non icteric, moist mucosa NECK: Supple, no JVD, trachea midline LUNGS: Clear breath sounds bilaterally. No wheezes HEART: Regular rate and rhythm. Normal S1 and S2, without murmurs ABD: Abdomen soft Bowel sounds present EXT: No clubbing cyanosis or edema NEURO: Alert and oriented to person, follows commands FOLLOW-UP: Follow-up with PCP in 2-3 days RECOMMENDATIONS: See Discharge Instructions This case was seen and discussed with my supervising physician. More than 47 minutes spent on discharge process, including evaluation of the patient, discussion with nursing staff, medication reconciliation and follow-up appointments MARICEL AGEE AGACNP Feb 19, 2025 13:32
--- NOTE | 2025-02-19 14:27 | NUR ---
DC SL CATH INTACT DRESSING TO REMOVAL SITE LEXX WELL DC PAPERS GIVEN SIGNED VERBAL UNDERSTANDING ESCORTED TO OFF UNIT VIA WX TO FRONT OF HOSPITAL DC HM STABLE CONDITION
== END 2025-02-19 14:30 | disposition home or self-care (01) | DRG 641 ==
LOC: EDH 19:32 → EDHIP 02-17 00:29 → 4AH 02-17 15:30
PROVIDERS: ADMIT Internal Medicine Pulmonary Disease; ATTEND Internal Medicine Pulmonary Disease
DX: E87.6 Hypokalemia (principal); K76.89 Other specified diseases of liver; R16.2 Hepatomegaly with splenomegaly, not elsewhere classified; N17.9 Acute kidney failure, unspecified; N18.9 Chronic kidney disease, unspecified; D64.9 Anemia, unspecified; Z20.822 Contact with and (suspected) exposure to COVID-19; G60.0 Hereditary motor and sensory neuropathy; Z90.710 Acquired absence of both cervix and uterus
CPT/HCPCS: 36415; 74176; 76857; 80048; 80051; 80076; 81001; 81025; 82570; 82728; 82948; 83540; 83550; 83605; 83690; 83735; 83935; 84100; 84145; 84443; 84484; 84550; 85025; 85027; 85610; 85730; 87426; 87804; 93005; 99285; G0378; J1171; J1756; J2405; J3475; J3480; J7030; J7050; J1308